=== PATIENT | female | born 1935 | race Caucasian/White ===

== ENCOUNTER 2016-11-20 14:42 | Inpatient (IN) ==
[2016-11-20] MEDS ORDERED: 0.9 % SODIUM CHLORIDE 1,000 ML IV ONE ×2 (15:00→15:02)
--- NOTE | 2016-11-20 15:09 | Emergency Department Note ---
Weakness HPI - General Chief complaint: Weakness Stated complaint: vomiting, fast heart rate Time Seen by Provider: 11/20/16 15:01 Source: patient, family Mode of arrival: ambulatory Limitations: no limitations - History of Present Illness HPI Narrative: Patient presents with significant other. Malaise, fever with chills, chest congestion with cough. Present now about 1 week. Patient feels like she is worsening. Mild confusion, no focal deficits. Cough is nonproductive. Patient unclear about history of A. fib; does report multiple cardiac stents. Multiple sick contacts. Patient also reports ongoing grief related to [id number] who 1 week ago. - Related Data Home Medications Medication Instructions Recorded Confirmed Apixaban [Eliquis] 5 mg PO BID 08/02/16 11/20/16 Lisinopril [Zestril] 40 mg PO DAILY 08/02/16 11/20/16 Omeprazole 20 mg PO DAILY 08/02/16 11/20/16 ALPRAZolam [Xanax] 1 mg PO TID 11/20/16 11/20/16 Levothyroxine [Synthroid] 112 mcg PO DAILY 11/20/16 11/20/16 amLODIPine [Norvasc] 10 mg PO DAILY 11/20/16 11/20/16 Previous Rx's Medication Instructions Recorded HYDROcodone/APAP 5/325MG [Delta 1 tab PO Q4HP PRN #14 tab 08/02/16 5/325Mg] Allergies Allergy/AdvReac Type Severity Reaction Status Date / Time ampicillin Allergy Mild ITCHING Verified 10/05/16 08:47 Cephalosporins Allergy Unknown Itching Verified 10/05/16 08:47 Review of Systems All systems ED: reviewed and negative except as stated. Constitutional: Reports: fever, chills, weakness Eyes: Denies: eye discharge, vision change ENT ED: Denies: ear pain, throat pain Cardiovascular: Reports: dyspnea on exertion. Denies: chest pain Respiratory: Reports: cough, dyspnea Past Medical History - Past Medical History Attestation: Yes: The following information was validated with the patient. Medical history: Reports: atrial fibrillation, GERD, hyperlipidemia, hypertension Surgical history ED: Reports: cholecystectomy, hysterectomy Family history: Reports: non-contributory - Social History smoking status: Never smoker Physical Exam - General Limitations: no limitations - Head Head exam: atraumatic - Eye Eye exam: Present: normal appearance. Absent: scleral icterus - ENT ENT exam: normal exam, mucous membranes moist - Neck Neck exam: Present: normal inspection. Absent: lymphadenopathy - Chest Chest inspection: Present: normal inspection, symmetric chest wall rise - Respiratory Respiratory exam: Present: normal lung sounds bilaterally. Absent: respiratory distress, wheezes - Cardiovascular Cardiovascular exam: Present: tachycardia, irregular rhythm - Abdominal Exam Abdominal exam: Present: soft. Absent: distention - Extremities Exam Extremities exam: Present: other (3+ edema appears chronic) - Back Exam Back exam: Present: normal inspection - Neurological Exam Neurological exam: Present: alert, oriented X3 - Psychiatric Psychiatric exam: Present: normal affect, flat affect - Skin Skin exam: Present: warm, dry. Absent: rash, cyanosis, diaphoresis, pallor Course - Reevaluation(s) Reevaluation #1: Patient feeling stronger, less confused but still very very weak. Unable to sit up without assist. Time: 16:45 Vital Signs Temperature 101.5 F H 11/20/16 14:46 Pulse Rate 123 H 11/20/16 14:46 Respiratory Rate 20 11/20/16 14:46 Blood Pressure 174/75 11/20/16 14:46 Pulse Oximetry (%) 93 11/20/16 14:46 Temperature 99.8 F H 11/20/16 16:16 Pulse Rate 123 H 11/20/16 14:46 Respiratory Rate 20 11/20/16 14:46 Blood Pressure 174/75 11/20/16 14:46 Pulse Oximetry (%) 93 11/20/16 14:46 Weakness - Lab Data Result diagrams: 11/20/16 15:02 11/20/16 15:02 Lab Results 11/20/16 11/20/16 11/20/16 Range/Units 15:02 15:02 15:02 WBC 10.4 (4.5-11.0) K/mcL RBC 4.68 (4.00-5.20) M/mcL Hgb 13.7 (12.0-15.0) g/dL Hct 41.8 (36.0-48.0) % MCV 89.5 (80.0-100.0) fL MCH 29.2 (26.0-34.0) pg MCHC 32.7 (31.0-36.0) g/dL RDW 16.9 H (11.5-14.5) % Plt Count 253 (140-440) K/mcL MPV 7.8 (7.4-10.4) fL Gran % 87.1 H (38.0-78.0) % Lymph % (Auto) 6.9 L (15.5-49.0) % [place] % (Auto) 4.9 (1.0-9.0) % Eos % (Auto) 0.9 (0.0-7.0) % Baso % (Auto) 0.2 (0.0-2.0) % Gran # 9.1 H (1.8-8.0) K/mcL Lymph # 0.7 L (1.5-4.8) K/mcL [place] # 0.5 (0.1-0.9) K/mcL Eos # 0.1 (0.0-0.7) K/mcL Baso # 0 (0.0-0.3) K/mcL ABG Methemoglobin (0.4-1.5) % VBG pH (7.32-7.42) U VBG pCO2 (41.0-51.0) mmHg VBG pO2 (25-40) mmHg VBG HCO3 (24.0-28.0) mmol/L VBG Total CO2 (25.0-29.0) mmol/L VBG O2 Saturation (40.0-70.0) % VBG Base Excess (-2.0-2.0) VBG Lactic Acid 2.6 H (0.5-2.2) mmol/L Carboxyhemoglobin (0.0-1.5) % THgb Total Hemoglobin (12.0-15.0) gm/dL O2 Delivery Level Sodium 133 (133-145) mmol/L Potassium 3.8 (3.3-5.1) mmol/L Chloride 92 L (96-108) mmol/L Carbon Dioxide 21 L (22-30) mmol/L Anion Gap 20.0 H (8-16) BUN 13 (8-23) mg/dl Creatinine 0.9 (0.6-1.1) mg/dl GFR Calculation 60 Glucose 150 H (70-105) mg/dL Calcium 9.1 (8.6-10.4) mg/dl Total Bilirubin 1.1 H (0.0-1.0) mg/dL AST 28 (0-37) U/l ALT 29 (0-40) U/l Alkaline Phosphatase 134 H (39-117) U/L Troponin T (0-0.03) ng/ml Total Protein 7.5 (5.9-8.4) gm/dL Albumin 4.1 (3.2-5.2) gm/dL Globulin 3.4 (2.2-3.7) gm/dL Albumin/Globulin Ratio 1.2 (1.0-2.3) Urine Color Urine Appearance Urine pH (5.0-9.0) Ur Specific [place] (1.000-1.035) Urine Protein (NEG) mg/dL Urine Glucose (UA) (NEG) mg/dL Urine Ketones (NEG) mg/dL Urine Occult Blood (<0.03) mg/dL Urine Nitrate (NEG) Urine Bilirubin (NEG) mg/dL Urine Urobilinogen (NEG) mg/dL Ur Leukocyte Esterase (NEG) /uL Urine RBC (0-1) /hpf Urine WBC (0-4) /hpf Ur Squamous Epith Cells (0-4) /hpf Urine Bacteria (0) /hpf Urine Mucus (0) /hpf Ur Culture Indicated? 11/20/16 11/20/16 11/20/16 Range/Units 15:02 15:02 15:41 WBC (4.5-11.0) K/mcL RBC (4.00-5.20) M/mcL Hgb (12.0-15.0) g/dL Hct (36.0-48.0) % MCV (80.0-100.0) fL MCH (26.0-34.0) pg MCHC (31.0-36.0) g/dL RDW (11.5-14.5) % Plt Count (140-440) K/mcL MPV (7.4-10.4) fL Gran % (38.0-78.0) % Lymph % (Auto) (15.5-49.0) % [place] % (Auto) (1.0-9.0) % Eos % (Auto) (0.0-7.0) % Baso % (Auto) (0.0-2.0) % Gran # (1.8-8.0) K/mcL Lymph # (1.5-4.8) K/mcL [place] # (0.1-0.9) K/mcL Eos # (0.0-0.7) K/mcL Baso # (0.0-0.3) K/mcL ABG Methemoglobin 0.3 L (0.4-1.5) % VBG pH 7.43 H (7.32-7.42) U VBG pCO2 37.0 L (41.0-51.0) mmHg VBG pO2 69 H (25-40) mmHg VBG HCO3 24.1 (24.0-28.0) mmol/L VBG Total CO2 25.2 (25.0-29.0) mmol/L VBG O2 Saturation 91.6 H (40.0-70.0) % VBG Base Excess 0.1 (-2.0-2.0) VBG Lactic Acid (0.5-2.2) mmol/L Carboxyhemoglobin 3.3 H (0.0-1.5) % THgb Total Hemoglobin 13.7 (12.0-15.0) gm/dL O2 Delivery Level Not Reportable Sodium (133-145) mmol/L Potassium (3.3-5.1) mmol/L Chloride (96-108) mmol/L Carbon Dioxide (22-30) mmol/L Anion Gap (8-16) BUN (8-23) mg/dl Creatinine (0.6-1.1) mg/dl GFR Calculation Glucose (70-105) mg/dL Calcium (8.6-10.4) mg/dl Total Bilirubin (0.0-1.0) mg/dL AST (0-37) U/l ALT (0-40) U/l Alkaline Phosphatase (39-117) U/L Troponin T < 0.01 (0-0.03) ng/ml Total Protein (5.9-8.4) gm/dL Albumin (3.2-5.2) gm/dL Globulin (2.2-3.7) gm/dL Albumin/Globulin Ratio (1.0-2.3) Urine Color Straw Urine Appearance Clear Urine pH 7.0 (5.0-9.0) Ur Specific [place] 1.008 (1.000-1.035) Urine Protein Neg (NEG) mg/dL Urine Glucose (UA) Negative (NEG) mg/dL Urine Ketones 5/tr A (NEG) mg/dL Urine Occult Blood 0.03 A (<0.03) mg/dL Urine Nitrate Neg (NEG) Urine Bilirubin Neg (NEG) mg/dL Urine Urobilinogen Neg (NEG) mg/dL Ur Leukocyte Esterase 25 A (NEG) /uL Urine RBC 4 H (0-1) /hpf Urine WBC 17 H (0-4) /hpf Ur Squamous Epith Cells 1 (0-4) /hpf Urine Bacteria Few A (0) /hpf Urine Mucus Few (0) /hpf Ur Culture Indicated? Yes - Radiology Data Radiology results reviewed: Yes I reviewed the patient's radiology results. no acute finding on chest x-ray,enlarged cardiac silhouette - EKG Data EKG attestation: Yes I reviewed and interpreted this EKG. EKG results narrative: EKG with A. fib, rate 122; lateral ST depression, no corresponding elevation Disposition Clinical Impression: Generalized weakness, Lactic acidosis UTI (urinary tract infection) Qualifiers: Urinary tract infection type: acute cystitis Hematuria presence: with hematuria Qualified Code(s): N30.01 - Acute cystitis with hematuria Summary: patient full code, wanting aggressive measures discussed with Dr. Forte,willing for admission, recommending ICU monitoring Disposition: Home, Self-Care Condition: Fair Referrals: Deanne Chris MD [Primary Care Provider] -
[2016-11-20 15:26] LABS: ABG Methemoglobin 0.3 % (0.4-1.5); VBG Base Excess 0.1 (-2.0-2.0); VBG HCO3 24.1 mmol/L (24.0-28.0); VBG Oxygen Saturation 91.6 % (40.0-70.0); VBG PH 7.43 U (7.32-7.42); VBG PO2 69 mmHg (25-40); VBG Total CO2 25.2 mmol/L (25.0-29.0)
[2016-11-20 15:31] LABS: Basophils # (Auto) 0 K/mcL (0.0-0.3); Basophils % (Auto) 0.2 % (0.0-2.0); Eosinophils # (Auto) 0.1 K/mcL (0.0-0.7); Eosinophils % (Auto) 0.9 % (0.0-7.0); Granulocytes % (Auto) 87.1 % (38.0-78.0); Lymphocytes # (Auto) 0.7 K/mcL (1.5-4.8); Lymphocytes % (Auto) 6.9 % (15.5-49.0); Mean Cell Volume 89.5 fL (80.0-100.0); Mean Corpuscular HGB Conc 32.7 g/dL (31.0-36.0); Mean Corpuscular Hemoglobin 29.2 pg (26.0-34.0); Monocytes # (Auto) 0.5 K/mcL (0.1-0.9); Monocytes % (Auto) 4.9 % (1.0-9.0); Platelet Count 253 K/mcL (140-440); RBC 4.68 M/mcL (4.00-5.20); Red Cell Distribution Width 16.9 % (11.5-14.5)
[2016-11-20 15:58] LABS: ALT/SGPT 29 U/l (0-40); Albumin 4.1 gm/dL (3.2-5.2); Albumin/Globulin Ratio 1.2 (1.0-2.3); Alkaline Phosphatase 134 U/L (39-117); Blood Urea Nitrogen 13 mg/dl (8-23)
[2016-11-20] MEDS ORDERED: LEVOFLOXACIN 500 MG/100 ML BAG IV ONE (15:58)
--- NOTE | 2016-11-20 16:08 | XRay Report ---
HISTORY: Reason for Exam:cough, fever, weakness FINDINGS: The lungs are clear and well expanded. There is no pleural effusion. The heart size and pulmonary vasculature are normal. There is a stent in the left anterior descending coronary artery. The heart is slightly larger today than it was in 2007. There is a right shoulder prosthesis. 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 IMPRESSION: No acute abnormality Interpreted and Authenticated by: Silvio Cabrera 11/20/16
[2016-11-20 16:17] LABS: Appearance,Urine CLEAR; Bacteria,Urine FEW /hpf (0); Bilirubin,Urine NEG (NEG); Color,Urine STRAW; Glucose,Urine (UA) NEGATIVE (NEG); Leukocyte Esterase,Urine 25 /uL (NEG); Mucus,Urine FEW /hpf (0); Nitrate,Urine NEG (NEG); Protein,Urine NEG (NEG); Specific Gravity,Urine 1.008 (1.000-1.035); Urine Blood 0.03 mg/dL (<0.03); Urine RBC 4 /hpf (0-1); Urine Squamous Epithelial Cell 1 /hpf (0-4); Urine WBC 17 /hpf (0-4); Urobilinogen,Urine NEG (NEG)
[2016-11-20] MEDS ORDERED: 0.9 % SODIUM CHLORIDE 1,000 ML IV SCH (18:00)
[2016-11-20] MEDS ORDERED: ACETAMINOPHEN 1,000 MG/100 ML BOTTLE IV PRN (18:00)
[2016-11-20] MEDS ORDERED: ACETAMINOPHEN 325 MG TABLET PO PRN (18:00)
[2016-11-20] MEDS ORDERED: HYDROcodone/APAP 5/325MG TABLET PO PRN (18:00)
[2016-11-20] MEDS ORDERED: ONDANSETRON 4 MG/2 ML VIAL IV PRN (18:00)
[2016-11-20] MEDS ORDERED: VASOPRESSIN 20 UNIT in DEXTROSE 5% IN WATER 99 ML IV PRN (18:00)
[2016-11-20] MEDS: APIXABAN 5 MG TABLET PO SCH (20:10)
[2016-11-20] MEDS: ALPRAZolam 0.5 MG TABLET PO SCH (20:10)
[2016-11-20] MEDS: AZTREONAM 1 GM in DEXTROSE 5% IN WATER 50 ML IV SCH (20:11)
[2016-11-20] MEDS: DOCUSATE SODIUM 100 MG CAPSULE PO SCH (20:11)
[2016-11-20] MEDS: METOPROLOL TARTRATE 5 MG/5 ML VIAL IV SCH (20:11)
[2016-11-20] MEDS: 0.9 % SODIUM CHLORIDE 10 ML SYRINGE IV SCH (20:12)
[2016-11-20] MEDS ORDERED: HEPARIN 5,000 UNIT/ML VIAL SQ SCH (21:00)
[2016-11-20] MEDS ORDERED: SENNOSIDES/DOCUSATE SODIUM 1 TAB TABLET PO SCH (21:00)
[2016-11-20] MEDS ORDERED: traZODone HCL 50 MG TABLET PO PRN (21:00)
[2016-11-21] MEDS: AZTREONAM 1 GM in DEXTROSE 5% IN WATER 50 ML IV SCH ×4 (00:45→21:13)
[2016-11-21 04:57] LABS: ALT/SGPT 23 U/l (0-40); Albumin 3.4 gm/dL (3.2-5.2); Albumin/Globulin Ratio 1.1 (1.0-2.3); Alkaline Phosphatase 120 U/L (39-117); Bilirubin,Direct 0.3 mg/dL (0.0-0.3); Blood Urea Nitrogen 12 mg/dl (8-23); Gamma Glutamyl Transpeptidase 92 U/L (5-36); Magnesium 1.8 mg/dL (1.6-2.5); Uric Acid 5.3 mg/dL (2.5-8.0)
[2016-11-21] MEDS: 0.9 % SODIUM CHLORIDE 10 ML SYRINGE IV SCH ×3 (04:59→21:18)
[2016-11-21 05:01] LABS: Mean Cell Volume 86.5 fL (80.0-100.0); Mean Corpuscular HGB Conc 34.8 g/dL (31.0-36.0); Mean Corpuscular Hemoglobin 30.1 pg (26.0-34.0); Platelet Count 177 K/mcL (140-440); RBC 4.65 M/mcL (4.00-5.20); Red Cell Distribution Width 16.4 % (11.5-14.5)
[2016-11-21 05:55] LABS: Anisocytosis 1+ (NONE SEEN); Band Neutrophils % 5 % (0-10); Lymphocytes % 20 % (15-49); Monocytes % (Manual) 14 % (1-9); Platelet Estimate NORMAL (NORMAL); RBC Morphology ABNORM (NORMAL); Segmented Neutrophils % 61 % (38-78)
[2016-11-21] MEDS ORDERED: LEVOTHYROXINE SODIUM 112 MCG TABLET PO SCH (07:30)
[2016-11-21] MEDS ORDERED: PANTOPRAZOLE 40 MG VIAL IV SCH (07:30)
[2016-11-21] MEDS: DOCUSATE SODIUM 100 MG CAPSULE PO SCH ×2 (08:45→21:13)
[2016-11-21] MEDS: APIXABAN 5 MG TABLET PO SCH ×2 (08:46→21:13)
[2016-11-21] MEDS: ALPRAZolam 0.5 MG TABLET PO SCH ×4 (08:49→21:19)
[2016-11-21] MEDS ORDERED: amLODIPine 10 MG TABLET PO SCH (09:00)
[2016-11-21] MEDS ORDERED: LISINOPRIL 20 MG TABLET PO SCH (09:00)
--- NOTE | 2016-11-21 09:03 | History and Physical Report ---
DATE OF ADMISSION: 11/20/2016 PRIMARY CARE PHYSICIAN: Deanne Chris MD REASON FOR ADMISSION: Weakness, fever, malaise along with increasing urinary frequency. HISTORY OF CHIEF COMPLAINTS: The patient is an 81-year-old [place], [place]. She was in her baseline state of health until roughly 48 hours prior to presentation. Patient has been getting increasingly incontinent with increasing frequency and weakness along with fevers, chills, malaise. Over the ensuing 24 hours the patient noted significant difficulty performing ADLs and had a decline in functional status. She also had associated cough. She endorses to loss of appetite. She denies diarrhea, dysuria, bloody stool, joint pain, rash, glandular swelling. With increasing weakness and concerns, the patient came to [facility] ER where initial workup was significant for pyuria along with bacteremia. The patient received first dose of antibiotics. Hospitalist Service was consulted. At the time of examination, the patient is alert, oriented and able to provide most of the history. She denies headache, photophobia, neck stiffness. She further denies nausea, vomiting, chest palpitations, weight loss or glandular swelling. REVIEW OF SYSTEMS: Ten-point review of system was performed and negative except the ones discussed above. PAST MEDICAL HISTORY: 1. Hypertension. 2. Anxiety disorder. 3. Hypothyroidism. 4. Anticoagulation. 5. GERD. 6. Degenerative joint disease. CURRENT MEDICATIONS: 1. Amlodipine 10 mg. 2. Lisinopril 40 mg. 3. Alprazolam 1 mg t.i.d. 4. Levothyroxine 112 mcg. 5. Apixaban 5 mg b.i.d. 6. Omeprazole 20 mg. 7. Hydrocodone/acetaminophen 1 tab q.4h. SOCIAL HISTORY: No history of smoking or alcoholism, lives with her son, sees primary care physician, Deanne Chris MD. No substance abuse history. CODE STATUS: FULL CODE. FAMILY HISTORY: Significant for breast cancer in daughter, diabetes in son. PHYSICAL EXAMINATION: GENERAL: The patient is nondistressed. BMI 31. Height 5 feet 4 inches. VITAL SIGNS: Blood pressure 155/90, respiratory rate 20, temperature 101.5, pulse 112, sats 96% on room air. HEENT: Pupils symmetric. Oral cavity is dry. No ear or nose discharge. Head is normocephalic and atraumatic. NECK: No lymphadenopathy. CHEST: S1, S2 regular rhythm, tachycardia. ESM grade 1. Diminished breath sounds at bases. ABDOMEN: Soft and nontender except for mild discomfort with suprapubic area. No flank tenderness. LOWER EXTREMITIES: No cyanosis or clubbing. No joint swelling. SKIN: No suspicious lesions. PSYCH: Alert and cooperative, fatigued but no anxiety or agitation. NEURO: Nonfocal. LABS AND IMAGING: White count 10.4, hemoglobin 13.7, neutrophils 87%, pH 7.43. Lactic acid 2.6, sodium 133, potassium 3.8, creatinine 0.9, BUN 13, bilirubin 1.1. LFTs unremarkable. Procalcitonin 0.94. UA significant for 17 WBCs and bacteria, gram negative bacilli on blood culture. Serous cultures pending. Renal ultrasound pending. ASSESSMENT AND PLAN: An 79-year-old admitted with severe sepsis and gram-positive and gram negative bacteremia with complicated UTI. 1. Severe sepsis from gram-negative bacteremia and UTI. Continue management per guidelines, surveillance cultures, broad antibiotic coverage-in light of penicillin and cephalosporins allergy we will use aztreonam/Levaquin and deescalate based on culture results. 2. Complicated urinary tract infection. Rule out obstructive uropathy. Evaluate with renal ultrasound. Continue antibiotic coverage. 3. Bacteremia. Continue surveillance cultures, at minimum 10 to 14 days of antibiotics. 4. Prior medical issues, including: a. History of anxiety disorder. Continue alprazolam. b. Anticoagulation will be continued on apixaban. c. Hypothyroidism. Continue levothyroxine. d. Gastroesophageal reflux disease. Continue PPI. e. Hypertension. At this time, we will hold medication until sepsis improves and systolics over 140. PLAN FOR TODAY: 1. Admit as inpatient telemetry in light of severe sepsis and bacteremia. 2. Renal ultrasound. 3. Antibiotic coverage. 4. Preexisting medical condition management as above. [email or web address] Job ID: [id number] Doc ID: [id number] Henrry Chris MD [facility]
[2016-11-21] MEDS ORDERED: traZODone HCL 50 MG TABLET PO PRN (09:25)
[2016-11-21] MEDS ORDERED: ACETAMINOPHEN 1,000 MG/100 ML BOTTLE IV PRN (09:25)
[2016-11-21] MEDS ORDERED: HYDROcodone/APAP 5/325MG TABLET PO PRN (09:25)
[2016-11-21] MEDS ORDERED: ACETAMINOPHEN 325 MG TABLET PO PRN (09:25)
[2016-11-21] MEDS ORDERED: ONDANSETRON 4 MG/2 ML VIAL IV PRN (09:25)
--- NOTE | 2016-11-21 09:28 | Internal Med Progress Note ---
Medical - PN: Subj Patient information: Note initiated : 11/21/16 at 9:24 am Service Date, if different from initiated Date: [] Patient: Natalee Rooney 81 y/o F admitted on 11/20/16 for Vomiting, Fast Heart Rate. Chief Complaint: [] Interval history: 11/20- patient admitted with severe sepsis/complicated UTI and bacteremia. Admitted to ICU. Elevated lactate. On crystalloids antibiotics and close hemodynamic monitoring. Renal ultrasound pending 11/21-atient doing well. Stable hemodynamics. Afebrile. Awaiting ultrasound. Surveillance cultures pending. Transfer to medical floor. Continue antibiotic coverage and target minimum 10-14 days after last negative blood culture based on sensitivities. - Constitutional Vitals: Vital Signs Temp Pulse Resp BP Pulse Ox 99.1 F 64 18 138/68 97 11/21/16 08:00 11/21/16 09:00 11/21/16 09:00 11/21/16 09:00 11/21/16 09:00 Period Temp Pulse Resp BP Sys/Edwards Pulse Ox Last 24 Hr 97.1 F-99.4 F 64-112 15-23 110-176/65-108 94-98 Intake and Output 11/20/16 11/21/16 11/21/16 21:59 05:59 13:59 Intake Total 410 / 1510 100 / 100 780 / 780 Output Total 350 / 350 450 / 450 Balance 60 / 1160 -350 / -350 780 / 780 Weight 183 lb 11.2 oz Intake & Output: Intake & Output 11/20/16 11/21/16 11/21/16 21:59 05:59 13:59 Intake Total 410 / 1510 100 / 100 780 / 780 Output Total 350 / 350 450 / 450 Balance 60 / 1160 -350 / -350 780 / 780 Weight 183 lb 11.2 oz Intake: IV 50 / 50 100 / 100 Dextrose 5% in Water 50 50 / 50 100 / 100 ml @ 100 mls/hr IV Q8 AARON with Azactam 1 gm Rx#: [id number] Oral 360 / 360 420 / 420 Tube Feeding 360 / 360 Output: Urine Catheter Amount 200 / 200 450 / 450 Void Amount 150 / 150 Other: Meal Breakfast Percent of Meal Consumed 100% General appearance: cooperative, no acute distress - Head Additional comments: alert oriented No anxiety no lymphedema or pallor nonlabored breathing Nondistended abdomen Medical - PN: Obj Da - Labs CBC & Chem 7: 11/21/16 04:05 11/21/16 04:05 Labs: Abnormal Lab Results 11/21/16 11/21/16 04:05 04:05 RDW 16.4 H Monocytes % (Manual) 14 H WBC Morphology Abnorm A Vacuolated Monocytes 1+ A RBC Morphology Abnorm A Anisocytosis 1+ A Calcium 8.5 L GGT 92 H Alkaline Phosphatase 120 H Meds: Medications Acetaminophen (Tylenol) 650 mg PO Q4-6HP PRN PRN Reason: PAIN/FEVER > 101 Acetaminophen/Hydrocodone Bitart ([place] 5/325mg) 1 tab PO Q4HP PRN PRN Reason: Pain Alprazolam (Xanax) 1 mg PO TID [facility] Last Admin: 11/21/16 08:49 Dose: 1 mg Amlodipine Besylate (Norvasc) 10 mg PO DAILY [facility] Last Admin: 11/21/16 08:46 Dose: 10 mg Docusate Sodium (Colace) 100 mg PO BID [facility] Last Admin: 11/21/16 08:45 Dose: 100 mg Aztreonam 1 gm/ Dextrose 50 mls @ 100 mls/hr IV Q8 [facility] Last Infusion: 11/21/16 05:30 Dose: Infused Sodium Chloride (Sodium Chloride 0.9%) 1,000 mls @ 50 mls/hr IV .Q20H [facility] Stop: 11/23/16 05:59 Last Admin: 11/20/16 20:12 Dose: 50 mls/hr Acetaminophen (Ofirmev) 1,000 mg in 100 mls @ 200 mls/hr IV Q6HP PRN PRN Reason: PAIN/FEVER > 101 Vasopressin 20 unit/ Dextrose 100 mls @ 12 mls/hr IV Q8HP PRN; Protocol; 0.04 UNIT/MIN PRN Reason: TO KEEP SBP < 180,DBP < 110 Levofloxacin (Levaquin) 750 mg in 150 mls @ 100 mls/hr IV Q48H [facility] Levothyroxine Sodium (Synthroid) 112 mcg PO QAMAC [facility] Last Admin: 11/21/16 07:11 Dose: 112 mcg Lisinopril (Zestril) 40 mg PO DAILY [facility] Last Admin: 11/21/16 08:46 Dose: 40 mg Ondansetron HCl (Zofran) 4 mg IV Q4-6HP PRN PRN Reason: Nausea And Vomiting Pantoprazole Sodium (Protonix) 40 mg IV QAMAC [facility] Last Admin: 11/21/16 07:11 Dose: 40 mg Pneumococcal Polyvalent Vaccine (Pneumovax 23) 0.5 ml IM .ONCE ONE Stop: 11/22/16 10:01 Senna/Docusate Sodium (Senna Plus Tablet) 1 tab PO HS [facility] Last Admin: 11/20/16 20:09 Dose: 1 tab Sodium Chloride (Saline Flush) 10 ml IV Q8 [facility] Last Admin: 11/21/16 04:59 Dose: Not Given Trazodone HCl (Desyrel) 50 mg PO HSP PRN PRN Reason: Insomnia Medical - PN: A/P - Time Spent With Patient Total time spent is greater than 50% in coordination of care (as documented) at patient's floor/unit and/or counseling patient: 25 - 35 minutes (1) Severe sepsis with acute organ dysfunction due to Gram negative bacteria Status: Acute Assessment and plan: * Severe sepsis due to gram-negative bacteremia- await ID/sensitivities. Surveillance cultures pending. Continue antibiotics for 10-14 days. stable hemodynamics. Transfer to medical floor. * Complicated UTI with bacteremia-continue antibiotic coverage. Renal ultrasound to rule out pyelonephritis/obstructive uropathy * hypertension-estartamlodipine. Hold JUANJO inhibitor is untilsepsis resolved * anxiety disorder on alprazolam * hypothyroidism on thyroxine * GERD on PPI * anticoagulation on apixiban * Full CODE STATUS Plan * Continue antibiotic coverage/surveillance cultures * Pre-existing medical condition management as above * transfer to medical floor Current Visit: Yes Medical - PN: Qual - VTE Deep Vein Thrombosis/Pulmonary Embolism Present on Admission: No
--- NOTE | 2016-11-21 09:47 | Ultrasound Report ---
History: Obstructive uropathy and bacteremia Findings: The right kidney is 4.8 x 5.3 x 10.7 cm left measures 4.7 x 5.1 x 11.6 cm. The cortex is normal in thickness and echogenicity bilaterally. There is no mass, cyst or hydronephrosis in either kidney. In the lower pole of left kidney and there is an echogenic structure measuring 3 x 7 x 7 mm. It shadows and may be a small nonobstructing stone. Urinary bladder is decompressed by Fox catheter. Therefore we are unable to visualize flow of urine through the ureters into the bladder. Impression: No evidence of hydronephrosis or inflammation in either kidney Small nonobstructing stone in the lower pole of the left kidney Interpreted and Authenticated by: Silvio Cabrera 11/21/16
[2016-11-21] MEDS ORDERED: LEVOFLOXACIN 750 MG/150 ML BAG IV SCH (10:00)
[2016-11-21] MEDS: 0.9 % SODIUM CHLORIDE 1,000 ML IV SCH (10:02)
[2016-11-21] MEDS: LEVOFLOXACIN 750 MG/150 ML BAG IV SCH (10:04)
[2016-11-21] MEDS: SENNOSIDES/DOCUSATE SODIUM 1 TAB TABLET PO SCH (21:12)
[2016-11-22] MEDS: 0.9 % SODIUM CHLORIDE 1,000 ML IV SCH ×2 (04:42→19:29)
[2016-11-22] MEDS: AZTREONAM 1 GM in DEXTROSE 5% IN WATER 50 ML IV SCH ×3 (05:17→21:27)
[2016-11-22] MEDS: 0.9 % SODIUM CHLORIDE 10 ML SYRINGE IV SCH ×3 (05:17→22:05)
[2016-11-22 05:50] LABS: Mean Cell Volume 90.2 fL (80.0-100.0); Mean Corpuscular HGB Conc 33.3 g/dL (31.0-36.0); Platelet Count 201 K/mcL (140-440); RBC 3.99 M/mcL (4.00-5.20); Red Cell Distribution Width 16.7 % (11.5-14.5)
[2016-11-22 06:32] LABS: ALT/SGPT 18 U/l (0-40); Albumin 3.1 gm/dL (3.2-5.2); Albumin/Globulin Ratio 1.2 (1.0-2.3); Alkaline Phosphatase 101 U/L (39-117); Bilirubin,Direct < 0.2 mg/dL (0.0-0.3); Blood Urea Nitrogen 15 mg/dl (8-23); Gamma Glutamyl Transpeptidase 83 U/L (5-36); Magnesium 1.8 mg/dL (1.6-2.5); Phosphorous 2.9 mg/dL (2.7-4.5); Uric Acid 5.2 mg/dL (2.5-8.0)
[2016-11-22] MEDS: PANTOPRAZOLE 40 MG VIAL IV SCH (07:16)
[2016-11-22] MEDS: LEVOTHYROXINE SODIUM 112 MCG TABLET PO SCH (07:17)
[2016-11-22] MEDS: DOCUSATE SODIUM 100 MG CAPSULE PO SCH ×2 (08:49→21:26)
[2016-11-22] MEDS: LISINOPRIL 20 MG TABLET PO SCH (08:50)
[2016-11-22] MEDS: APIXABAN 5 MG TABLET PO SCH ×2 (08:50→21:25)
[2016-11-22] MEDS: amLODIPine 10 MG TABLET PO SCH (08:50)
[2016-11-22] MEDS: ALPRAZolam 0.5 MG TABLET PO SCH ×3 (08:55→21:27)
[2016-11-22 09:08] LABS: Anisocytosis 1+ (NONE SEEN); Band Neutrophils % 4 % (0-10); Eosinophils % (Manual) 8 % (0-7); Lymphocytes % 22 % (15-49); Monocytes % (Manual) 8 % (1-9); Platelet Estimate NORMAL (NORMAL); RBC Morphology ABNORM (NORMAL); Segmented Neutrophils % 58 % (38-78)
[2016-11-22] MEDS ORDERED: PNEUMOCOCCAL 23-VAL P-SAC VAC 0.5 ML VIAL IM ONE (10:00)
[2016-11-22] MEDS ORDERED: FLU VACC QS2016-17 36MOS UP/PF 60 MCG/0.5 ML SYRINGE IM ONE (10:00)
--- NOTE | 2016-11-22 10:09 | Internal Med Progress Note ---
Medical - PN: Subj Patient information: Note initiated : 11/22/16 at 10:01 am Service Date, if different from initiated Date: [] Patient: Natalee Rooney 81 y/o F admitted on 11/20/16 for Vomiting, Fast HR/Severe Sepsis, Complicated UTI. Chief Complaint: [] Interval history: 11/20- patient admitted with severe sepsis/complicated UTI and bacteremia. Admitted to ICU. Elevated lactate. On crystalloids antibiotics and close hemodynamic monitoring. Renal ultrasound pending 11/21-atient doing well. Stable hemodynamics. Afebrile. Awaiting ultrasound. Surveillance cultures pending. Transfer to medical floor. Continue antibiotic coverage and target minimum 10-14 days after last negative blood culture based on sensitivities. 11/22- gram-negative bacteremia to 2 cultures positive. Surveillance cultures pending. Urine culture GNR. Await ID/sensitivities. Continue aztreonam/ Levaquin. Clinically improving. Target 14 days antibiotics from last negative culture. renal ultrasound unremarkable. Stable hemodynamics. No overnight fever,chills abdominal pain, diarrhea or concerns per staff. discussed treatment plan and 14 day antibiotic with patient. Continue physical therapy - Constitutional Vitals: Vital Signs Temp Pulse Resp BP Pulse Ox 97.4 F L 77 16 164/81 97 11/22/16 07:59 11/22/16 07:59 11/22/16 07:59 11/22/16 07:59 11/22/16 07:59 Period Temp Pulse Resp BP Sys/Edwards Pulse Ox Last 24 Hr 97.2 F-98.4 F 63-78 16-20 112-164/58-82 95-99 Intake and Output 11/21/16 11/22/16 11/22/16 21:59 05:59 13:59 Intake Total 92 / 92 100 / 100 Output Total 150 / 150 475 / 475 Balance -58 / -58 -375 / -375 Weight 186 lb 8 oz Intake & Output: Intake & Output 11/21/16 11/22/16 11/22/16 21:59 05:59 13:59 Intake Total 92 / 92 100 / 100 Output Total 150 / 150 475 / 475 Balance -58 / -58 -375 / -375 Weight 186 lb 8 oz Intake: IV 92 / 92 Dextrose 5% in Water 50 92 / 92 ml @ 100 mls/hr IV Q8 AARON with Azactam 1 gm Rx#: [id number] Oral 100 / 100 Output: Void Amount 150 / 150 475 / 475 Other: # Bowel Movements 0 General appearance: cooperative, no acute distress Exam: alert oriented nonlabored breathing Fatigued No lymphedema Medical - PN: Obj Da - Labs CBC & Chem 7: 11/22/16 04:05 11/22/16 04:05 Labs: Abnormal Lab Results 11/22/16 11/22/16 11/21/16 04:05 04:05 04:05 RBC 3.99 L RDW 16.7 H Monocytes % (Manual) Eosinophils % (Manual) 8 H WBC Morphology Vacuolated Monocytes RBC Morphology Abnorm A Anisocytosis 1+ A Calcium 8.5 L 8.5 L GGT 83 H 92 H Alkaline Phosphatase 120 H Total Protein 5.7 L Albumin 3.1 L 11/21/16 04:05 RBC RDW 16.4 H Monocytes % (Manual) 14 H Eosinophils % (Manual) WBC Morphology Abnorm A Vacuolated Monocytes 1+ A RBC Morphology Abnorm A Anisocytosis 1+ A Calcium GGT Alkaline Phosphatase Total Protein Albumin Meds: Medications Acetaminophen (Tylenol) 650 mg PO Q4-6HP PRN PRN Reason: PAIN/FEVER > 101 Acetaminophen/Hydrocodone Bitart ([place] 5/325mg) 1 tab PO Q4HP PRN PRN Reason: Pain Alprazolam (Xanax) 1 mg PO TID [facility] Last Admin: 11/22/16 08:55 Dose: Not Given Amlodipine Besylate (Norvasc) 10 mg PO DAILY [facility] Last Admin: 11/22/16 08:50 Dose: 10 mg Docusate Sodium (Colace) 100 mg PO BID [facility] Last Admin: 11/22/16 08:49 Dose: 100 mg Aztreonam 1 gm/ Dextrose 50 mls @ 100 mls/hr IV Q8 [facility] Last Admin: 11/22/16 05:17 Dose: 100 mls/hr Levofloxacin (Levaquin) 750 mg in 150 mls @ 100 mls/hr IV Q48H [facility] Last Infusion: 11/21/16 11:04 Dose: 0 mls/hr Sodium Chloride (Sodium Chloride 0.9%) 1,000 mls @ 50 mls/hr IV .Q20H [facility] Stop: 11/23/16 05:59 Last Admin: 11/22/16 04:42 Dose: Not Given Acetaminophen (Ofirmev) 1,000 mg in 100 mls @ 200 mls/hr IV Q6HP PRN PRN Reason: PAIN/FEVER > 101 Levothyroxine Sodium (Synthroid) 112 mcg PO QAMAC [facility] Last Admin: 11/22/16 07:17 Dose: 112 mcg Lisinopril (Zestril) 40 mg PO DAILY [facility] Last Admin: 11/22/16 08:50 Dose: 40 mg Ondansetron HCl (Zofran) 4 mg IV Q4-6HP PRN PRN Reason: Nausea And Vomiting Pantoprazole Sodium (Protonix) 40 mg IV QAMAC [facility] Last Admin: 11/22/16 07:16 Dose: 40 mg Senna/Docusate Sodium (Senna Plus Tablet) 1 tab PO HS [facility] Last Admin: 11/21/16 21:12 Dose: 1 tab Sodium Chloride (Saline Flush) 10 ml IV Q8 [facility] Last Admin: 11/22/16 05:17 Dose: Not Given Trazodone HCl (Desyrel) 50 mg PO HSP PRN PRN Reason: Insomnia Medical - PN: A/P - Time Spent With Patient Total time spent is greater than 50% in coordination of care (as documented) at patient's floor/unit and/or counseling patient: 25 - 35 minutes (1) Severe sepsis with acute organ dysfunction due to Gram negative bacteria Status: Acute Assessment and plan: * Gram-negative bacteremia- surveillance cultures pending. De-escalate antibiotics based on sensitivities * Severe sepsis due to gram-negative bacteremia- clinically improved. Stable hemodynamics. Possible discharge in 48 hours with additional 14 days antibiotics * Complicated GNR UTI -negative renal ultrasound. * hTN-continue amlodipine. restart JUANJO inhibitor * Anxiety disorder on alprazolam * hypothyroidism on thyroxine * GERD on PPI * anticoagulation on apixiban * Full CODE STATUS Plan * de-escalate ABX based on sensitivities * Restart JUANJO inhibitor * Pre-existing medical condition management as above * surveillance cultures Current Visit: Yes Medical - PN: Qual - VTE Deep Vein Thrombosis/Pulmonary Embolism Present on Admission: No
[2016-11-22] MEDS: SENNOSIDES/DOCUSATE SODIUM 1 TAB TABLET PO SCH (21:26)
[2016-11-23 05:22] LABS: Mean Cell Volume 89.7 fL (80.0-100.0); Mean Corpuscular HGB Conc 33.4 g/dL (31.0-36.0); Mean Corpuscular Hemoglobin 29.9 pg (26.0-34.0); Platelet Count 227 K/mcL (140-440); RBC 3.83 M/mcL (4.00-5.20); Red Cell Distribution Width 16.5 % (11.5-14.5)
[2016-11-23] MEDS: AZTREONAM 1 GM in DEXTROSE 5% IN WATER 50 ML IV SCH (05:56)
[2016-11-23] MEDS: 0.9 % SODIUM CHLORIDE 10 ML SYRINGE IV SCH ×3 (05:56→21:48)
[2016-11-23 06:00] LABS: ALT/SGPT 17 U/l (0-40); Albumin 3.1 gm/dL (3.2-5.2); Albumin/Globulin Ratio 1.1 (1.0-2.3); Alkaline Phosphatase 103 U/L (39-117); Bilirubin,Direct < 0.2 mg/dL (0.0-0.3); Blood Urea Nitrogen 12 mg/dl (8-23); Gamma Glutamyl Transpeptidase 88 U/L (5-36); Magnesium 1.7 mg/dL (1.6-2.5); Phosphorous 3.2 mg/dL (2.7-4.5); Uric Acid 4.7 mg/dL (2.5-8.0)
[2016-11-23] MEDS: PANTOPRAZOLE 40 MG VIAL IV SCH (08:24)
[2016-11-23] MEDS: LEVOTHYROXINE SODIUM 112 MCG TABLET PO SCH (08:24)
[2016-11-23 08:40] LABS: Anisocytosis 1+ (NONE SEEN); Eosinophils % (Manual) 7 % (0-7); Lymphocytes % 31 % (15-49); Monocytes % (Manual) 9 % (1-9); Myelocytes % 1 % (0-0); Platelet Estimate NORMAL (NORMAL); RBC Morphology ABNORM (NORMAL); Segmented Neutrophils % 51 % (38-78)
[2016-11-23] MEDS ORDERED: amLODIPine 10 MG TABLET PO SCH (09:00)
[2016-11-23] MEDS ORDERED: LISINOPRIL 20 MG TABLET PO SCH (09:00)
[2016-11-23] MEDS: LISINOPRIL 20 MG TABLET PO SCH (09:19)
[2016-11-23] MEDS: DOCUSATE SODIUM 100 MG CAPSULE PO SCH ×2 (09:19→21:40)
[2016-11-23] MEDS: APIXABAN 5 MG TABLET PO SCH ×2 (09:20→21:47)
[2016-11-23] MEDS: amLODIPine 10 MG TABLET PO SCH (09:21)
--- NOTE | 2016-11-23 10:28 | Internal Med Progress Note ---
Medical - PN: Subj Patient information: Note initiated : 11/23/16 at 10:26 am Service Date, if different from initiated Date: [] Patient: Natalee Rooney 81 y/o F admitted on 11/20/16 for Vomiting, Fast HR/Severe Sepsis, Complicated UTI. Chief Complaint: [] Interval history: 11/20- Patient admitted with severe sepsis/complicated UTI and bacteremia. Admitted to ICU. Elevated lactate. On crystalloids antibiotics and close hemodynamic monitoring. Renal ultrasound pending 11/21- Patient doing well. Stable hemodynamics. Afebrile. Awaiting ultrasound. Surveillance cultures pending. Transfer to medical floor. Continue antibiotic coverage and target minimum 10-14 days after last negative blood culture based on sensitivities. 11/22- Gram-negative bacteremia to 2 cultures positive. Surveillance cultures pending. Urine culture GNR. Await ID/sensitivities. Continue aztreonam/ Levaquin. Clinically improving. Target 14 days antibiotics from last negative culture. renal ultrasound unremarkable. Stable hemodynamics. No overnight fever,chills abdominal pain, diarrhea or concerns per staff. discussed treatment plan and 14 day antibiotic with patient. Continue physical therapy 11/23- Patient doing well. No overnight events. No concerns per staff. Cultures revealing Klebsiella/Escherichia coli . Pansensitive. De-escalate antibiotics. Start Rocephin. Anticipate discharge to SNF in 24 hours. No overnight fever chills nausea vomiting - Constitutional Vitals: Vital Signs Temp Pulse Resp BP Pulse Ox 98.7 F 72 16 170/81 96 11/23/16 07:45 11/23/16 07:45 11/23/16 07:45 11/23/16 07:45 11/23/16 07:45 Period Temp Pulse Resp BP Sys/Edwards Pulse Ox Last 24 Hr 97.3 F-98.7 F 70-79 16-16 150-176/76-90 94-98 Intake and Output 11/22/16 11/23/16 11/23/16 21:59 05:59 13:59 Intake Total 460 / 460 300 / 300 Output Total 550 / 550 401 / 401 Balance -90 / -90 -101 / -101 Weight 189 lb 8 oz Intake & Output: Intake & Output 11/22/16 11/23/16 11/23/16 21:59 05:59 13:59 Intake Total 460 / 460 300 / 300 Output Total 550 / 550 401 / 401 Balance -90 / -90 -101 / -101 Weight 189 lb 8 oz Intake: IV 100 / 100 Dextrose 5% in Water 50 100 / 100 ml @ 100 mls/hr IV Q8 AARON with Azactam 1 gm Rx#: [id number] Oral 360 / 360 300 / 300 Output: Void Amount 550 / 550 400 / 400 # of times incontinent of 1 / urine Other: Meal Dinner Percent of Meal Consumed 50% Feeding Ability Independent # Voids 1 General appearance: cooperative, no acute distress, obese Exam: alert oriented Feeling lethargic and fatigued nonlabored breathing Non tender/distended abdomen no anxiety Medical - PN: Obj Da - Labs CBC & Chem 7: 11/23/16 04:10 11/23/16 04:10 Labs: Abnormal Lab Results 11/23/16 11/23/16 11/22/16 04:10 04:10 04:05 WBC 4.0 L RBC 3.83 L Hgb 11.5 L Hct 34.4 L RDW 16.5 H Monocytes % (Manual) Eosinophils % (Manual) Myelocytes % 1 H WBC Morphology Vacuolated Monocytes RBC Morphology Abnorm A Anisocytosis 1+ A Calcium 8.3 L 8.5 L GGT 88 H 83 H Alkaline Phosphatase Total Protein 5.8 L 5.7 L Albumin 3.1 L 3.1 L 11/22/16 11/21/16 11/21/16 04:05 04:05 04:05 WBC RBC 3.99 L Hgb Hct RDW 16.7 H 16.4 H Monocytes % (Manual) 14 H Eosinophils % (Manual) 8 H Myelocytes % WBC Morphology Abnorm A Vacuolated Monocytes 1+ A RBC Morphology Abnorm A Abnorm A Anisocytosis 1+ A 1+ A Calcium 8.5 L GGT 92 H Alkaline Phosphatase 120 H Total Protein Albumin Meds: Medications Acetaminophen (Tylenol) 650 mg PO Q4-6HP PRN PRN Reason: PAIN/FEVER > 101 Acetaminophen/Hydrocodone Bitart ([place] 5/325mg) 1 tab PO Q4HP PRN PRN Reason: Pain Amlodipine Besylate (Norvasc) 10 mg PO DAILY [facility] Last Admin: 11/23/16 09:21 Dose: 10 mg Docusate Sodium (Colace) 100 mg PO BID [facility] Last Admin: 11/23/16 09:19 Dose: 100 mg Aztreonam 1 gm/ Dextrose 50 mls @ 100 mls/hr IV Q8 [facility] Last Admin: 11/23/16 05:56 Dose: 100 mls/hr Levofloxacin (Levaquin) 750 mg in 150 mls @ 100 mls/hr IV Q48H [facility] Last Infusion: 11/21/16 11:04 Dose: 0 mls/hr Acetaminophen (Ofirmev) 1,000 mg in 100 mls @ 200 mls/hr IV Q6HP PRN PRN Reason: PAIN/FEVER > 101 Ceftriaxone Sodium 2 gm/ (Dextrose) 50 mls @ 100 mls/hr IV Q24H [facility] Levothyroxine Sodium (Synthroid) 112 mcg PO QAMAC [facility] Last Admin: 11/23/16 08:24 Dose: 112 mcg Lisinopril (Zestril) 40 mg PO DAILY [facility] Last Admin: 11/23/16 09:19 Dose: 40 mg Ondansetron HCl (Zofran) 4 mg IV Q4-6HP PRN PRN Reason: Nausea And Vomiting Pantoprazole Sodium (Protonix) 40 mg IV QAMID [facility] Last Admin: 11/23/16 08:24 Dose: 40 mg Senna/Docusate Sodium (Senna Plus Tablet) 1 tab PO HS [facility] Last Admin: 11/22/16 21:26 Dose: 1 tab Sodium Chloride (Saline Flush) 10 ml IV Q8 [facility] Last Admin: 11/23/16 05:56 Dose: Not Given Trazodone HCl (Desyrel) 50 mg PO HSP PRN PRN Reason: Insomnia Medical - PN: A/P - Time Spent With Patient Total time spent is greater than 50% in coordination of care (as documented) at patient's floor/unit and/or counseling patient: 15 - 24 minutes (1) Severe sepsis with acute organ dysfunction due to Gram negative bacteria Status: Acute Assessment and plan: * Escherichia coli bacteremia- Surveillance cultures negative. Continue antibiotics based on sensitivities * Severe sepsis due to Escherichia coli bacteremia- clinically improved. target 14 days antibiotics. * Complicated Klebsiella/Escherichia coli UTI -Negative renal ultrasound. * HTN-continue amlodipine/JUANJO inhibitor * Anxiety disorder on alprazolam * hypothyroidism on thyroxine * GERD on PPI * anticoagulation on apixiban * Full CODE STATUS Plan * Start Rocephin * pre-existing medical condition management as above * antibiotic for additional 12 days * Case management to arrange SNF transfer Current Visit: Yes Medical - PN: Qual - VTE Deep Vein Thrombosis/Pulmonary Embolism Present on Admission: No
[2016-11-23] MEDS ORDERED: cefTRIAXone 2 GM in DEXTROSE 5% IN WATER 50 ML IV SCH (11:00)
[2016-11-23] MEDS ORDERED: LEVOFLOXACIN 750 MG/150 ML BAG IV SCH (12:00)
[2016-11-23] MEDS ORDERED: NITROGLYCERIN 0.4 MG TAB.SUBL SL PRN (19:25)
[2016-11-23] MEDS ORDERED: NITROGLYCERIN 0.4 MG TAB.SUBL SL ONE (19:32)
[2016-11-23] MEDS ORDERED: ACETAMINOPHEN 1,000 MG/100 ML BOTTLE IV PRN (19:41)
[2016-11-23] MEDS ORDERED: ONDANSETRON 4 MG/2 ML VIAL IV PRN (19:41)
[2016-11-23] MEDS ORDERED: HYDROcodone/APAP 5/325MG TABLET PO PRN (19:41)
[2016-11-23] MEDS ORDERED: ACETAMINOPHEN 325 MG TABLET PO PRN (19:41)
[2016-11-23] MEDS ORDERED: traZODone HCL 50 MG TABLET PO PRN (19:41)
[2016-11-23] MEDS ORDERED: SENNOSIDES/DOCUSATE SODIUM 1 TAB TABLET PO SCH (21:00)
[2016-11-23] MEDS ORDERED: ASPIRIN 81 MG TAB.CHEW CHEWED ONE (21:02)
[2016-11-23 21:06] LABS: Creatine Kinase 29 IU/L (24-170); Creatine Kinase MB 1.4 ng/ml (0-2.9)
[2016-11-23] MEDS: 0.9 % SODIUM CHLORIDE 1,000 ML IV SCH (21:40)
[2016-11-23] MEDS: LEVOFLOXACIN 750 MG/150 ML BAG IV SCH (22:02)
[2016-11-24] MEDS: 0.9 % SODIUM CHLORIDE 10 ML SYRINGE IV SCH (05:54)
[2016-11-24 06:28] LABS: Mean Cell Volume 90.5 fL (80.0-100.0); Mean Corpuscular HGB Conc 32.9 g/dL (31.0-36.0); Mean Corpuscular Hemoglobin 29.8 pg (26.0-34.0); Platelet Count 246 K/mcL (140-440); RBC 3.78 M/mcL (4.00-5.20); Red Cell Distribution Width 17.1 % (11.5-14.5)
[2016-11-24 06:54] LABS: ALT/SGPT 20 U/l (0-40); Albumin 3.3 gm/dL (3.2-5.2); Albumin/Globulin Ratio 1.3 (1.0-2.3); Alkaline Phosphatase 99 U/L (39-117); Bilirubin,Direct < 0.2 mg/dL (0.0-0.3); Blood Urea Nitrogen 8 mg/dl (8-23); Gamma Glutamyl Transpeptidase 83 U/L (5-36); Magnesium 1.7 mg/dL (1.6-2.5); Phosphorous 3.6 mg/dL (2.7-4.5); Uric Acid 4.7 mg/dL (2.5-8.0)
[2016-11-24] MEDS ORDERED: PANTOPRAZOLE 40 MG VIAL IV SCH (07:30)
[2016-11-24] MEDS ORDERED: LEVOTHYROXINE SODIUM 112 MCG TABLET PO SCH (07:30)
[2016-11-24 07:56] LABS: Anisocytosis 1+ (NONE SEEN); Band Neutrophils % 3 % (0-10); Basophils % (Manual) 2 % (0-2); Eosinophils % (Manual) 1 % (0-7); Lymphocytes % 37 % (15-49); Metamyelocytes % 1 % (0-0); Monocytes % (Manual) 11 % (1-9); Platelet Estimate NORMAL (NORMAL); RBC Morphology ABNORM (NORMAL); Segmented Neutrophils % 43 % (38-78)
[2016-11-24] MEDS: APIXABAN 5 MG TABLET PO SCH (08:55)
[2016-11-24] MEDS: DOCUSATE SODIUM 100 MG CAPSULE PO SCH (08:55)
[2016-11-24] MEDS ORDERED: LISINOPRIL 20 MG TABLET PO SCH (09:00)
[2016-11-24] MEDS ORDERED: amLODIPine 10 MG TABLET PO SCH (09:00)
[2016-11-24] MEDS ORDERED: cefTRIAXone 2 GM in DEXTROSE 5% IN WATER 50 ML IV SCH ×2 (09:00→11:00)
--- NOTE | 2016-11-24 09:27 | Discharge Summary ---
Medical - DS: Prov Patient information: Note initiated : 11/24/16 at 9:25 am Service Date, if different from initiated Date: [] Patient: Natalee Rooney 81 y/o F admitted on 11/20/16 for Vomiting, Fast HR/Severe Sepsis, Complicated UTI. Chief Complaint: [] Date of admission: 11/20/16 17:42 Discharge date: 11/24/16 Primary care physician: [f_Reg Prim Care Provider] Medical - DS: Meds - Discharge Medications Prescriptions: Levofloxacin [Levaquin] 750 mg PO DAILY #10 tablet Active and Home Medications: Home Medications Apixaban [Eliquis] 5 mg PO BID 08/02/16 [History Confirmed 11/20/16 Last Taken 11/20/16 09:00] HYDROcodone/APAP 5/325MG [[place] 5/325Mg] 1 tab PO Q4HP PRN #14 tab 08/02/16 [Rx Confirmed 11/20/16 Last Taken 11/20/16 09:00] Lisinopril [Zestril] 40 mg PO DAILY 08/02/16 [History Confirmed 11/20/16 Last Taken 11/20/16 09:00] Omeprazole 20 mg PO DAILY 08/02/16 [History Confirmed 11/20/16 Last Taken 09:00] Levothyroxine [Synthroid] 112 mcg PO DAILY 11/20/16 [History Confirmed 11/20/16 Last Taken 11/20/16 09:00] amLODIPine [Norvasc] 10 mg PO DAILY 11/20/16 [History Confirmed 11/20/16 Last Taken 11/20/16 09:00] Metoprolol Succinate [Toprol Xl] 50 mg PO BID 11/23/16 [History Confirmed Last Taken Unknown] Levofloxacin [Levaquin] 750 mg PO DAILY #10 tablet 11/24/16 [Rx Last Taken Unknown] Medical - DS: Hosp Hospital course: Discharge diagnoses * Escherichia coli bacteremia- Surveillance cultures negative. continue oral Levaquin based on culture sensitivities * Severe sepsis due to above- clinically improved. continue additional 10 days Levaquin. * Complicated Klebsiella/Escherichia coli UTI -Negative renal ultrasound. continue oral antibiotics as outpatient * HTN-continue amlodipine/JUANJO inhibitor and restart metoprolol * trial fibrillation rate controlled on metoprolol * Anxiety disorder on alprazolam * hypothyroidism on thyroxine * GERD on PPI * anticoagulation for CVA prophylaxis on apixiban [facility] COURSE 11/20- Patient admitted with severe sepsis/complicated UTI and bacteremia. Admitted to ICU. Elevated lactate. On crystalloids antibiotics and close hemodynamic monitoring. Renal ultrasound pending 11/21- Patient doing well. Stable hemodynamics. Afebrile. Awaiting ultrasound. Surveillance cultures pending. Transfer to medical floor. Continue antibiotic coverage and target minimum 10-14 days after last negative blood culture based on sensitivities. 11/22- Gram-negative bacteremia to 2 cultures positive. Surveillance cultures pending. Urine culture GNR. Await ID/sensitivities. Continue aztreonam/ Levaquin. Clinically improving. Target 14 days antibiotics from last negative culture. renal ultrasound unremarkable. Stable hemodynamics. No overnight fever,chills abdominal pain, diarrhea or concerns per staff. discussed treatment plan and 14 day antibiotic with patient. Continue physical therapy 11/23- Patient doing well. No overnight events. No concerns per staff. Cultures revealing Klebsiella/Escherichia coli . Pansensitive. De-escalate antibiotics. Start Rocephin. Anticipate discharge to SNF in 24 hours. No overnight fever chills nausea vomiting 11/24- patient refusing SNF transfer. Requesting discharge home. Cardiac enzymes negative no telemetry events except for A. fib with intermittent RVR. Restarted on metoprolol. White count stable. Surveillance cultures negative. No overnight fever chills nausea vomiting, or chest pain shortness of breath. detailed discharge instructions as below. Continue antibiotics for additional 10 days. Follow up recommendations as below Discharge diagnosis: Escherichia coli bacteremia, severe sepsis - Time Spent with Patient Total time spent providing and/or coordinating discharge services: Greater than 30 minutes Medical - DS: Exam - Constitutional Vitals: Vital Signs Temp Pulse Resp BP Pulse Ox 11/24/16 08:00 98.0 F 24 142/80 94 11/24/16 04:00 98.0 F 85 18 167/91 95 11/24/16 00:00 97.3 F L 90 16 165/98 94 11/23/16 21:54 99 H 167/85 11/23/16 20:24 103 H 135/80 11/23/16 20:19 103 H 144/80 11/23/16 19:48 104 H 18 166/74 96 11/23/16 19:35 99 H 156/75 11/23/16 19:20 98.9 F 108 H 18 172/83 94 11/23/16 16:00 97.8 F 83 16 171/84 96 11/23/16 12:00 98.7 F 73 16 162/74 96 Intake and Output 11/23/16 11/24/16 11/24/16 21:59 05:59 13:59 Intake Total 1000 / 1000 300 / 300 200 / 200 Output Total 102 / 102 102 / 102 Balance 898 / 898 198 / 198 200 / 200 Intake: IV 1000 / 1000 Sodium Chloride 0.9% 1, 1000 / 1000 000 ml @ 50 mls/hr IV . Q20H AARON Rx#:[id number] Oral 300 / 300 200 / 200 Output: Void Amount 100 / 100 100 / 100 # of times incontinent of 2 / 2 2 / 2 urine Other: Meal Breakfast Percent of Meal Consumed 100% Feeding Ability Independent # Voids 1 1 Weight 194 lb General appearance: morbidly obese, no acute distress Additional comments: alert oriented nonlabored breathing Nontender abdomen no anxiety Medical - DS: Data Labs on day of discharge: Labs from last 24 hours 11/24/16 11/24/16 11/24/16 04:35 04:35 04:30 WBC RBC Hgb Hct MCV MCH MCHC RDW Plt Count MPV Total Counted Seg Neutrophils % Band Neutrophils % Lymphocytes % Monocytes % (Manual) Eosinophils % (Manual) Basophils % (Manual) Metamyelocytes % Reactive Lymphocytes Platelet Estimate RBC Morphology Anisocytosis Sodium 140 Potassium 3.8 Chloride 103 Carbon Dioxide 24 Anion Gap 13.0 BUN 8 Creatinine 0.7 GFR Calculation 81 Glucose 89 Uric Acid 4.7 Calcium 8.9 Phosphorus 3.6 Magnesium 1.7 Total Bilirubin 0.3 Direct Bilirubin < 0.2 GGT 83 H AST 18 ALT 20 Alkaline Phosphatase 99 Lactate Dehydrogenase 140 Total Creatine Kinase 22 L CK-MB (CK-2) 1.3 Troponin T < 0.01 Total Protein 5.8 L Albumin 3.3 Globulin 2.5 Albumin/Globulin Ratio 1.3 Triglycerides 98 11/24/16 11/23/16 11/23/16 04:30 19:42 19:42 WBC 3.8 L RBC 3.78 L Hgb 11.3 L Hct 34.2 L MCV 90.5 MCH 29.8 MCHC 32.9 RDW 17.1 H Plt Count 246 MPV 7.8 Total Counted 100 Seg Neutrophils % 43 Band Neutrophils % 3 Lymphocytes % 37 Monocytes % (Manual) 11 H Eosinophils % (Manual) 1 Basophils % (Manual) 2 Metamyelocytes % 1 H Reactive Lymphocytes 2 Platelet Estimate Normal RBC Morphology Abnorm A Anisocytosis 1+ A Sodium Potassium Chloride Carbon Dioxide Anion Gap BUN Creatinine GFR Calculation Glucose Uric Acid Calcium Phosphorus Magnesium Total Bilirubin Direct Bilirubin GGT AST ALT Alkaline Phosphatase Lactate Dehydrogenase Total Creatine Kinase 29 CK-MB (CK-2) 1.4 Troponin T < 0.01 Total Protein Albumin Globulin Albumin/Globulin Ratio Triglycerides Preliminary micro results at discharge 11/22/16 10:35 Blood Culture - Preliminary Blood 11/22/16 10:25 Blood Culture - Preliminary Blood 11/21/16 08:35 Blood Culture - Preliminary Blood 11/21/16 08:40 Blood Culture - Preliminary Blood Medical - DS: A/P - Patient/Caregiver Discharge Instructions Activity: increase activity as tolerated, resume usual activities as tolerated Diet: Regular Diet Additional Instructions: Follow-up PCP in 5 days I recommend primary care physician to check CBC BMP UA as a posthospital follow -up Antibiotics for 10 days Continue fall precautions All meals on chair sitting upright at 90 degrees to prevent aspiration Return to ER if worsening fever chills, abdominal pain, diarrhea, bleeding Review risk and side effect profile of medications including antibiotics. Side effect may include mild to severe reaction including rash, diarrhea, cdiff and even which can be prevented by close follow-up with PCP and monitoring for side effects Continue diet and activity as advised Discussed importance of medication adherence Please review medication list with patient prior to discharge Please schedule follow-up with PCP/Providers prior to discharge and provide printouts Portions of this chart may have been created with [employer] voice recognition software. Occasional wrong-word or ?sound-like? substitutions may have occurred due to the inherent limitations of voice recognition software. Please read the chart carefully and recognize, using context, where the substitutions have occurred. CC- PCP Prescriptions: Levofloxacin [Levaquin] 750 mg PO DAILY #10 tablet - Follow up Plan Follow up with: Deanne Chris MD [Primary Care Provider] - Disposition: Home, Self-Care Prognosis: Fair Rehab Potential: Fair I certify that the patient requires SNF services: No Overall status at discharge: patient is back to baseline Medical - DS: Qual - VTE Deep Vein Thrombosis/Pulmonary Embolism Present on Admission: No
[2016-11-24] MEDS ORDERED: FLU VACC QS2016-17 36MOS UP/PF 60 MCG/0.5 ML SYRINGE IM ONE (10:45)
[2016-11-24] MEDS ORDERED: PNEUMOCOCCAL 23-VAL P-SAC VAC 0.5 ML VIAL IM ONE (10:45)
[2016-11-25] MEDS ORDERED: METOPROLOL SUCCINATE 50 MG TAB.XL.24H PO SCH (09:00)
[2016-11-25] MEDS ORDERED: LEVOFLOXACIN 750 MG/150 ML BAG IV SCH (10:00)
== END 2016-11-24 11:40 | disposition home or self-care (01) | DRG 872 ==
LOC: ED 14:42 → ICU 17:42 → MEDSUR 11-21 19:00
PROVIDERS: ADMIT Internal Medicine; ATTEND Internal Medicine

== ENCOUNTER 2022-10-17 19:20 | Inpatient (IN) ==
[2022-10-17 19:53] LABS: POC Calcium, Ionized 1.13 (1.16-1.32); POC Creatinine 4.2 (0.6-1.2); POC Potassium 4.9 (3.3-5.1)
--- NOTE | 2022-10-17 20:02 | Emergency Department Note ---
Chest Pain HPI General Chief Complaint: Chest Pain Stated Complaint: chest pain Time Seen by Provider: 10/17/22 19:27 Source: patient and EMS Mode of arrival: EMS Limitations: no limitations History of Present Illness HPI Narrative: 87-year-old female with history of CAD status post stents, NSTEMI in June, atrial fibrillation on chronic anticoagulation, CKD stage III, CHF, cognitive dysfunction, osteoarthritis, chronic pain, presents to the ER with complaint of chest pain. Patient has memory issues and son is at the bedside to help with her history. He notes that her chest pain started about 2 hours ago. She has had constant belching through the course of the day. No history of GERD, but per medication review does take omeprazole. Currently she is denying chest pain. She took 2 nitroglycerin before coming into the ER. She denies nausea or vomiting. She does endorse some mild shortness of breath. She has now complained of a headache. Patient was sent to [facility] from our ER in June for NSTEMI. I do not have their notes for review and son is not able to tell me what was done. He t hinks they may have associated it with her atrial fibrillation. EKG currently shows sinus rhythm with a rate of 54 bpm. There are no acute segment ST elevations to suggest STEMI. She does have nonspecific ST changes with ST flattening in V4 through V6. Presenting troponin is 0.04. Related Data Home Medications Medication Instructions Recorded Confirmed omeprazole 20 mg tablet,delayed 20 mg PO DAILY 08/02/16 01/13/22 release losartan 100 mg tablet 100 mg PO QDAY 10/01/19 01/13/22 apixaban 5 mg tablet 2.5 mg PO BID 09/15/20 01/13/22 Previous Rx's Medication Instructions Recorded nitroglycerin 0.4 mg sublingual 0.4 mg SL Q5M PRN Chest Pain #15 05/20/18 tablet tabs hydrocodone 5 mg-acetaminophen 325 1 tab PO TID PRN pain #14 tabs 03/28/21 mg tablet metoprolol succinate 50 mg 50 mg PO QDAY #90 tabs 04/01/21 tablet,extended release 24 hr torsemide 10 mg tablet 10 mg PO QDAY #90 tabs 04/01/21 hydrocodone 5 mg-acetaminophen 325 1 tab PO TID PRN pain #9 tabs 04/27/22 mg tablet sulfamethoxazole 800 1 tab PO BID #10 tabs 05/27/22 mg-trimethoprim 160 mg tablet (Bactrim DS) sulfamethoxazole 800 2 tab PO Q12H 7 days #28 tabs 10/13/22 mg-trimethoprim 160 mg tablet (Bactrim DS) Allergies Allergy/AdvReac Type Severity Reaction Status Date / Time ampicillin Allergy Mild ITCHING Verified 10/17/22 19:31 Cephalosporins Allergy Mild Itching Verified 10/17/22 19:31 Review of Systems ROS ROS Narrative: Narrative: All systems ED: reviewed and negative except as stated. 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 chronic kidney disease (Chronic) Hyperparathyroidism (Chronic) Acute UTI (urinary tract infection) (Acute) Congestive heart failure (Acute) Acute pain of right hip (Acute) Left leg pain (Acute) Localized edema due to fluid overload (Chronic) Chronic kidney disease, stage 3b (Chronic) Subdural hematoma (Chronic) Memory loss (Chronic) Incontinence (Chronic) History of basal cell carcinoma (Chronic) Syncope (Chronic) Malaise (Chronic) Myalgia (Chronic) Degenerative joint disease of shoulder (Chronic) Dyspnea (Chronic) Arthritis of shoulder (Chronic) Back pain (Chronic) GERD (gastroesophageal reflux disease) (Chronic) Leg cramps (Chronic) Atrial fibrillation (Chronic) Hemorrhoid (Chronic) Pain of cervical spine (Chronic) Anemia (Chronic) Atherosclerosis of coronary artery of [place] heart with angina pectoris (Chronic) Rash (Chronic) Osteopenia (Chronic) Hypertriglyceridemia (Chronic) Dysuria (Chronic) Decreased renal function (Chronic) Generalized weakness (Chronic) UTI (urinary tract infection) (Chronic) Lactic acidosis (Chronic) Severe sepsis with acute organ dysfunction due to Gram negative bacteria (Chronic) UTI (urinary tract infection) (Chronic) Chronic atrial fibrillation with RVR (Chronic) Chest pain not due to acute coronary syndrome (Chronic) Hypertension, essential (Chronic) JUANJO-inhibitor cough (Chronic) Epistaxis (Chronic) Encounter for removal of nasal packing (Chronic) Laceration of right temporomandibular area without foreign body (Chronic) Laceration (Chronic) Encounter for wound re-check (Chronic) Medical History JUANJO-inhibitor cough Anemia Arthritis of shoulder Atherosclerosis of coronary artery of [place] heart with angina pectoris Atrial fibrillation Back pain Chest pain not due to acute coronary syndrome Chronic atrial fibrillation with RVR Decreased renal function Degenerative joint disease of shoulder Dyspnea Dysuria Encounter for removal of nasal packing Encounter for wound re-check Epistaxis Generalized weakness GERD (gastroesophageal reflux disease) Hemorrhoid History of basal cell carcinoma Hypertension, essential Hypertriglyceridemia Incontinence Laceration Laceration of right temporomandibular area without foreign body Lactic acidosis Leg cramps Malaise Memory loss Myalgia Osteopenia Pain of cervical spine Rash Severe sepsis with acute organ dysfunction due to Gram negative bacteria Subdural hematoma Syncope UTI (urinary tract infection) UTI (urinary tract infection) Surgical History History of basal cell carcinoma (BCC) excision (~2007) History of cholecystectomy (~1979) History of gastric surgery (~193) History of hysterectomy (~1972) History of knee surgery (~2000) Right knee replacement. History of surgery leg Family History Son Diabetes Cancer Daughter Breast cancer Family/Other Dementia Osteoporosis Social History Smoking Status: Never smoker Alcohol Intake Frequency: does not drink Substance Use: does not use Exam Narrative Narrative: General: AOx3, NAD, nontoxic appearing. Pleasant and conversant. HEENT: PERRL, EOMI, normocephalic. Moist mucous membranes. She has a notable growth of the left lateral frontal area of her scalp. There is a scab formation over the top. There is no active bleeding. Chest: Symmetric, no pain to palpation Respiratory: Lungs clear to auscultation bilaterally. No respiratory distress. Unlabored breathing. Heart: Regular rate and rhythm, no murmurs/clicks/rubs. Abdomen: Non-tender, Non distended, normal bowel tones. No organomegaly. Extremities: Warm and well perfused. No edema. DP 2+ bilaterally. No venous stasis. Neuro: No focal deficits. Cranial nerves II-XII grossly normal. Skin: Warm dry, no rashes or lesions, no cyanosis. Psych: Normal mood and affect Heme/Lymph: No abnormal bruising General Limitations: no limitations Course Course Course Narrative: 87-year-old female with history of CAD presents the ER with 2 hours of substernal chest pain Reevaluation(s) Reevaluation #1: Chest pain rule out with serial troponins, EKG, CBC, CHEM panel, chest x-ray. Vital Signs Vital signs: Vital Signs Temperature 98.3 F 10/17/22 19:29 Pulse Rate 55 L 10/17/22 19:29 Respiratory Rate 20 10/17/22 19:29 Blood Pressure 125/51 10/17/22 19:29 Pulse Oximetry (%) 100 10/17/22 19:29 Oxygen Delivery Method Room Air 10/17/22 19:29 Temperature 98.3 F 10/17/22 19:29 Pulse Rate 51 L 10/17/22 20:17 Respiratory Rate 14 10/17/22 20:17 Blood Pressure 119/49 10/17/22 20:17 Pulse Oximetry (%) 97 10/17/22 20:17 Oxygen Delivery Method Room Air 10/17/22 19:29 MDM MDM Narrative Medical decision making narrative: Chest pain Patient is being evaluated for her chest pain currently. Labs are pending. So far her troponin is not elevated and her EKG shows no acute ST segment changes to suggest ischemia. Notes from [place] are being obtained to review her hospital course in June. I signed the patient out to Dr. Mack at change of shift. Please see his note for further details and plan of care. Lab Data 10/17/22 19:48 Labs: Lab Results 10/17/22 10/17/22 10/17/22 Range/Units 19:43 19:45 19:48 WBC 10.2 (4.5-11.0) K/mcL RBC 2.62 L (3.59-5.38) M/mcL Hgb 7.9 L (11.2-15.7) g/dL Hct 23.7 L (34.1-44.9) % POC Hct 26.0 L (36-48) MCV 90.5 (80.0-100.0) fL MCH 30.2 (26.0-34.0) pg MCHC 33.3 (31.0-36.0) g/dL RDW 18.2 H (11.5-14.5) % Plt Count 636 H (140-440) K/mcL MPV 10.1 (8.8-12.5) fL Immature Gran % (Auto) 1.9 H (0.0-0.5) % Neut % (Auto) 73.0 (38.0-78.0) % Lymph % (Auto) 15.1 L (15.5-49.0) % [place] % (Auto) 8.0 (1.0-12.0) % Eos % (Auto) 1.6 (0.0-7.0) % Baso % (Auto) 0.4 (0.0-2.0) % Lymph # (Auto) 1.53 (1.50-4.80) K/mcL [place] # (Auto) 0.81 (0.10-0.90) K/mcL Eos # (Auto) 0.16 (0.00-0.70) K/mcL Baso # (Auto) 0.04 (0.00-0.30) K/mcL Immature Gran # 0.19 H (0.00-0.05) K/mcl Absolute Neutrophils 7.43 (1.80-8.00) K/mcL POC VBG pH (7.32-7.42) POC VBG pCO2 at Temp (41-51) POC VBG pO2 (25-40) POC VBG HCO3 (24-28) POC VBG Total CO2 (25-29) POC Venous O2 Sat (40-70) POC VBG Base Excess (-2-2) VBG Lactic Acid (0.5-2) POC Sodium 133 (133-145) POC Potassium 4.9 (3.3-5.1) POC Chloride 99 (96-108) POC Total CO2 24.0 (22-30) POC BUN 59 H (6-20) POC Creatinine 4.2 H (0.6-1.2) POC Glucose 108 H (70-105) POC WB Ioniz Calcium 1.13 L (1.16-1.32) POC Troponin I 0.04 (0.00-0.08) 10/17/22 Range/Units 19:49 WBC (4.5-11.0) K/mcL RBC (3.59-5.38) M/mcL Hgb (11.2-15.7) g/dL Hct (34.1-44.9) % POC Hct (36-48) MCV (80.0-100.0) fL MCH (26.0-34.0) pg MCHC (31.0-36.0) g/dL RDW (11.5-14.5) % Plt Count (140-440) K/mcL MPV (8.8-12.5) fL Immature Gran % (Auto) (0.0-0.5) % Neut % (Auto) (38.0-78.0) % Lymph % (Auto) (15.5-49.0) % [place] % (Auto) (1.0-12.0) % Eos % (Auto) (0.0-7.0) % Baso % (Auto) (0.0-2.0) % Lymph # (Auto) (1.50-4.80) K/mcL [place] # (Auto) (0.10-0.90) K/mcL Eos # (Auto) (0.00-0.70) K/mcL Baso # (Auto) (0.00-0.30) K/mcL Immature Gran # (0.00-0.05) K/mcl Absolute Neutrophils (1.80-8.00) K/mcL POC VBG pH 7.40 (7.32-7.42) POC VBG pCO2 at Temp 37.3 L (41-51) POC VBG pO2 29 (25-40) POC VBG HCO3 23.3 L (24-28) POC VBG Total CO2 24.0 L (25-29) POC Venous O2 Sat 56.0 (40-70) POC VBG Base Excess -1.0 (-2-2) VBG Lactic Acid 1.1 (0.5-2) POC Sodium (133-145) POC Potassium (3.3-5.1) POC Chloride (96-108) POC Total CO2 (22-30) POC BUN (6-20) POC Creatinine (0.6-1.2) POC Glucose (70-105) POC WB Ioniz Calcium (1.16-1.32) POC Troponin I (0.00-0.08) Discharge Plan Patient/Caregiver Discharge Instructions Pt seen by GATE CLERK/PA only: No Patient Disposition: Still a Patient Condition: Undetermined Follow up with: Deanne Chris MD [Primary Care Provider] - Prescriptions: No Action losartan 100 mg tablet 100 mg PO QDAY metoprolol succinate 50 mg tablet extended release 24 hr 50 mg PO QDAY Qty: 90 3RF torsemide 10 mg tablet 10 mg PO QDAY Qty: 90 3RF omeprazole 20 MG tablet,delayed release (DR/EC) 20 mg PO DAILY apixaban 5 mg tablet 2.5 mg PO BID nitroglycerin 0.4 MG tablet, sublingual 0.4 mg SL Q5M PRN (Reason: Chest Pain) Qty: 15 0RF Rx Instructions: MAY REPEAT Q5MIN X3 hydrocodone-acetaminophen 5-325 mg tablet 1 tab PO TID PRN (Reason: pain) Qty: 14 0RF hydrocodone-acetaminophen 5-325 mg tablet 1 tab PO TID PRN (Reason: pain) Qty: 9 0RF sulfamethoxazole-trimethoprim [Bactrim DS] 800-160 mg tablet 1 tab PO BID Qty: 10 0RF sulfamethoxazole-trimethoprim [Bactrim DS] 800-160 mg tablet 2 tab PO Q12H 7 Days Qty: 28 0RF
[2022-10-17] MEDS ORDERED: 0.9 % SODIUM CHLORIDE 1,000 ML IV ONE (20:16)
[2022-10-17 20:48] LABS: Basophils # (Auto) 0.04 K/mcL (0.00-0.30); Basophils % (Auto) 0.4 % (0.0-2.0); Eosinophils # (Auto) 0.16 K/mcL (0.00-0.70); Eosinophils % (Auto) 1.6 % (0.0-7.0); Hematocrit 23.7 % (34.1-44.9); Hemoglobin 7.9 g/dL (11.2-15.7); Lymphocytes # (Auto) 1.53 K/mcL (1.50-4.80); Lymphocytes % (Auto) 15.1 % (15.5-49.0); Mean Cell Volume 90.5 fL (80.0-100.0); Mean Corpuscular HGB Conc 33.3 g/dL (31.0-36.0); Mean Platelet Volume 10.1 fL (8.8-12.5); Monocytes # (Auto) 0.81 K/mcL (0.10-0.90); Platelet Count 636 K/mcL (140-440); RBC 2.62 M/mcL (3.59-5.38); Red Cell Distribution Width 18.2 % (11.5-14.5); WBC 10.2 K/mcL (4.5-11.0)
--- NOTE | 2022-10-17 20:59 | Emergency Department Note ---
Course Course Course Narrative: I assumed care of patient at 2100 pending labs and imaging. Please refer to midlevel note for care up to this point. Patient was evaluated for chest pain. EKG was unremarkable. Troponins are negative x2. Labs did reveal that patient BUN/creatinine were severely altered when compared to previous just 4 days ago. At that time her BUN/creatinine was normal. Her BUN was 54 and a creatinine of 4.2. Patient was given some IV fluids as well as some Lasix. There was slight improvement in her BUN and creatinine that trended down. Potassium was normal. As mentioned EKG was unremarkable. Was also noticed that patient's hemoglobin hematocrit had decreased. Patient had extensive bleeding from the laceration on her head. Stool guaiac was negative for blood. CT of chest abdomen pelvis obtained with no obvious intra-abdominal blood collection. CT of chest and face cannot be done with contrast due to patient's acute kidney injury. Believe patient's hemoglobin to be stable. Case was discussed with hospitalist who has agreed to admit the patient for acute kidney injury secondary to dehydration. Patient did receive IV fluids and Lasix here in the ED. Negative for COVID and flu. Chest x-ray was obtained with image reviewed myself with no acute cardiopulmonary finding. Plan of care was discussed with patient and she and her son expressed verbal understanding agreement of plan. Consultations Consultation #1: Case discussed with air intelligence specialist, Dr. Waite, he states that patient does not need immediate dialysis and can be admitted to our facility if the hospitalist is willing to accept except Time: 01:05 Consultation #2: Case discussed with hospitalist, Dr. Dheeraj Willis, who was agreed to admit patient to the hospital. Time: 01:15 Vital Signs Vital signs: Vital Signs Temperature 98.3 F 10/17/22 19:29 Pulse Rate 55 L 10/17/22 19:29 Respiratory Rate 20 10/17/22 19:29 Blood Pressure 125/51 10/17/22 19:29 Pulse Oximetry (%) 100 10/17/22 19:29 Oxygen Delivery Method Room Air 10/17/22 19:29 Temperature 98.3 F 10/17/22 19:29 Pulse Rate 64 10/18/22 01:01 Respiratory Rate 23 H 10/18/22 01:01 Blood Pressure 118/43 10/18/22 01:01 Pulse Oximetry (%) 99 10/18/22 01:01 Oxygen Delivery Method Room Air 10/17/22 19:29 MDM MDM Narrative Medical decision making narrative: Narrative: Lab Data 10/17/22 19:48 Labs: Lab Results 10/17/22 10/17/22 10/17/22 Range/Units 19:43 19:45 19:48 WBC 10.2 (4.5-11.0) K/mcL RBC 2.62 L (3.59-5.38) M/mcL Hgb 7.9 L (11.2-15.7) g/dL Hct 23.7 L (34.1-44.9) % POC Hct 26.0 L (36-48) MCV 90.5 (80.0-100.0) fL MCH 30.2 (26.0-34.0) pg MCHC 33.3 (31.0-36.0) g/dL RDW 18.2 H (11.5-14.5) % Plt Count 636 H (140-440) K/mcL MPV 10.1 (8.8-12.5) fL Immature Gran % (Auto) 1.9 H (0.0-0.5) % Neut % (Auto) 73.0 (38.0-78.0) % Lymph % (Auto) 15.1 L (15.5-49.0) % [place] % (Auto) 8.0 (1.0-12.0) % Eos % (Auto) 1.6 (0.0-7.0) % Baso % (Auto) 0.4 (0.0-2.0) % Lymph # (Auto) 1.53 (1.50-4.80) K/mcL [place] # (Auto) 0.81 (0.10-0.90) K/mcL Eos # (Auto) 0.16 (0.00-0.70) K/mcL Baso # (Auto) 0.04 (0.00-0.30) K/mcL Immature Gran # 0.19 H (0.00-0.05) K/mcl Absolute Neutrophils 7.43 (1.80-8.00) K/mcL POC VBG pH (7.32-7.42) POC VBG pCO2 at Temp (41-51) POC VBG pO2 (25-40) POC VBG HCO3 (24-28) POC VBG Total CO2 (25-29) POC Venous O2 Sat (40-70) POC VBG Base Excess (-2-2) VBG Lactic Acid (0.5-2) POC Sodium 133 (133-145) POC Potassium 4.9 (3.3-5.1) POC Chloride 99 (96-108) POC Total CO2 24.0 (22-30) POC BUN 59 H (6-20) POC Creatinine 4.2 H (0.6-1.2) POC Glucose 108 H (70-105) POC WB Ioniz Calcium 1.13 L (1.16-1.32) POC Troponin I 0.04 (0.00-0.08) 10/17/22 10/17/22 10/18/22 Range/Units 19:49 22:20 00:41 WBC (4.5-11.0) K/mcL RBC (3.59-5.38) M/mcL Hgb (11.2-15.7) g/dL Hct (34.1-44.9) % POC Hct 22.0 L (36-48) MCV (80.0-100.0) fL MCH (26.0-34.0) pg MCHC (31.0-36.0) g/dL RDW (11.5-14.5) % Plt Count (140-440) K/mcL MPV (8.8-12.5) fL Immature Gran % (Auto) (0.0-0.5) % Neut % (Auto) (38.0-78.0) % Lymph % (Auto) (15.5-49.0) % [place] % (Auto) (1.0-12.0) % Eos % (Auto) (0.0-7.0) % Baso % (Auto) (0.0-2.0) % Lymph # (Auto) (1.50-4.80) K/mcL [place] # (Auto) (0.10-0.90) K/mcL Eos # (Auto) (0.00-0.70) K/mcL Baso # (Auto) (0.00-0.30) K/mcL Immature Gran # (0.00-0.05) K/mcl Absolute Neutrophils (1.80-8.00) K/mcL POC VBG pH 7.40 (7.32-7.42) POC VBG pCO2 at Temp 37.3 L (41-51) POC VBG pO2 29 (25-40) POC VBG HCO3 23.3 L (24-28) POC VBG Total CO2 24.0 L (25-29) POC Venous O2 Sat 56.0 (40-70) POC VBG Base Excess -1.0 (-2-2) VBG Lactic Acid 1.1 (0.5-2) POC Sodium 135 (133-145) POC Potassium 4.5 (3.3-5.1) POC Chloride 102 (96-108) POC Total CO2 22.0 (22-30) POC BUN 54 H (6-20) POC Creatinine 4.1 H (0.6-1.2) POC Glucose 94 (70-105) POC WB Ioniz Calcium 1.12 L (1.16-1.32) POC Troponin I 0.02 (0.00-0.08) Radiology Data Radiology results reviewed: Yes I reviewed the patient's radiology results. Radiology results narrative: CT chest abdomen pelvis obtained with image reviewed myself, no acute findings EKG Data EKG #1: EKG attestation: Yes I reviewed and interpreted this EKG. EKG shows normal: sinus rhythm Rate: normal Rhythm: NSR [place]/QRS: normal Heart block present: None ST segment elevation in: None ST segment depression in: None QTc: normal QRS morphology: Present normal Interpretation: no acute changes and nonspecific ST-T wave changes Discharge Plan Patient/Caregiver Discharge Instructions Pt seen by LENS GENERATING MACHINE TENDER/PA only: No Clinical Impression: Acute kidney injury, Anemia, Acute dehydration Patient Disposition: Xfer As Inpt ([facility]) Condition: Fair Follow up with: Deanne Chris MD [Primary Care Provider] - Prescriptions: No Action losartan 100 mg tablet 100 mg PO QDAY metoprolol succinate 50 mg tablet extended release 24 hr 50 mg PO QDAY Qty: 90 3RF torsemide 10 mg tablet 10 mg PO QDAY Qty: 90 3RF omeprazole 20 MG tablet,delayed release (DR/EC) 20 mg PO DAILY apixaban 5 mg tablet 2.5 mg PO BID nitroglycerin 0.4 MG tablet, sublingual 0.4 mg SL Q5M PRN (Reason: Chest Pain) Qty: 15 0RF Rx Instructions: MAY REPEAT Q5MIN X3 hydrocodone-acetaminophen 5-325 mg tablet 1 tab PO TID PRN (Reason: pain) Qty: 14 0RF hydrocodone-acetaminophen 5-325 mg tablet 1 tab PO TID PRN (Reason: pain) Qty: 9 0RF sulfamethoxazole-trimethoprim [Bactrim DS] 800-160 mg tablet 1 tab PO BID Qty: 10 0RF sulfamethoxazole-trimethoprim [Bactrim DS] 800-160 mg tablet 2 tab PO Q12H 7 Days Qty: 28 0RF
[2022-10-17] MEDS ORDERED: FUROSEMIDE 40 MG/4 ML VIAL IV ONE (21:18)
[2022-10-18 00:46] LABS: POC Calcium, Ionized 1.12 (1.16-1.32); POC Creatinine 4.1 (0.6-1.2); POC Potassium 4.5 (3.3-5.1)
[2022-10-18] MEDS ORDERED: PROMETHAZINE 25 MG/ML VIAL IM PRN (01:18)
[2022-10-18] MEDS ORDERED: ACETAMINOPHEN 325 MG TABLET PO PRN ×2 (01:18→07:55)
[2022-10-18] MEDS ORDERED: ONDANSETRON 4 MG/2 ML VIAL IV PRN ×2 (01:18→07:55)
--- NOTE | 2022-10-18 02:55 | XRay Report ---
CLINICAL INFORMATION: Chest pain COMPARISON: 07/14/2022 TECHNIQUE: Portable FINDINGS: Mild cardiomegaly has increased from previous exam. Mediastinum is unremarkable. Pulmonary vessels are mildly distended and there is minimal interstitial edema in the lateral bases. No infiltrates or effusions. Severe left glenohumeral degeneration again noted. Right shoulder prostheses is unremarkable IMPRESSION: Mild CHF Interpreted and Authenticated by: Dante Vick 10/18/22
[2022-10-18] MEDS: 0.9 % SODIUM CHLORIDE 1,000 ML IV SCH ×3 (03:45→16:01)
--- NOTE | 2022-10-18 05:03 | Cat Scan Report ---
CLINICAL INFORMATION: Anemia COMPARISON: None. TECHNIQUE: Decreased creatinine clearance precluded use of IV contrast. 0.625 mm helical slices were obtained from the lung apices through the subtrochanteric regions of the femurs. Following reconstruction, 2.5 mm sagittal, coronal and axial reformatted images were processed and reviewed at multiple windows and levels. 7 mm MIP reconstructions were obtained through the lungs to optimize nodule detection.The exam was performed using radiation dose optimization techniques including, but not limited to, automated exposure control, adjustment of the mA and/or kV according to patient size and use of iterative reconstruction technique. FINDINGS: Pulmonary parenchymal windows show subsegmental atelectasis in the posterior dependent upper and lower lobes. No cammie infiltrates. Pleural spaces are unremarkable-no effusions. Mediastinal windows show the heart is moderately enlarged with heavy calcific plaque in the coronary arteries. The noncontrasted thoracic aorta and pulmonary arteries are normal diameter. There is no adenopathy in the mediastinal, hilar or axillary regions. Esophagus is grossly normal. Thyroid unremarkable. Abdominal images show the gallbladder and bile ducts, liver, adrenal glands, and spleen are normal in size, configuration and attenuation without focal lesion. Aorta is normal diameter. There is extremely heavy calcific plaque throughout the abdominal aorta. Heavy calcific plaque also be seen in the proximal right renal artery suspect stenosis in this region. Moderate calcific plaque seen within the remaining aortic branches. Mild atrophy of the pancreatic head neck and proximal body appreciated. Both kidneys are mildly atrophic: the left is 8.7 cm in length and the right is 7.9 cm in length. No focal renal lesions. There is no free air, free fluid or adenopathy. Pelvic images show normal urinary bladder. Hysterectomy oophorectomy changes appreciated. Moderate stool is impacted within the rectum. The stomach, small bowel, appendix region and large bowel are grossly normal. Bone windows show diffuse osteoporosis with mild chronic-appearing L1-L2 compression fractures appreciated. There is also minimal chronic wedging of several lower thoracic vertebral bodies. No soft tissue abnormality. IMPRESSION: 1. A specific cause for anemia is not apparent. Decreased erythropoietin due to bilateral renal atrophy may be a factor if the anemia is normocytic. Otherwise, GI blood loss would be a common cause. Consider tagged red blood cell study. 2. Moderate stool impaction within the rectum. 3. Osteoporosis with mild chronic compression fractures of the L1 and L2 vertebral bodies. 4. Mild pancreatic atrophy. 5. Moderate cardiomegaly with heavy calcific plaque in the coronary arteries Interpreted and Authenticated by: Dante Vick 10/18/22
--- NOTE | 2022-10-18 06:48 | Nephrology Consult Note ---
HPI Date of Consult Consult Date: 10/18/22 Requesting physician: Yolanda Parr Primary Care Provider: Deanne Chris Consult Narrative Chief complaint: Chest pain Reason for consult: Acute kidney injury History of present illness: Natalee Rooney is an 87-year-old female with chronic kidney disease stage 3b, coronary artery disease s/p stents, atrial fibrillation on chronic anticoagulation, diabetes mellitus type 2 and hypertension admitted on 10/18/22. She initially presented to [facility] ED for a forehead lesion on 10/13/22 and prescribed Bactrim for UTI. She presented to ED again for chest pain on 10/07/22 and was diagnosed with WILLIE. Nephrology consultation was requested for acute kidney injury. cc:: CC: Yolanda Parr MD Constitutional Constitutional: Present lethargy and weakness EENT Nose, mouth and throat: Absent nasal congestion or sore throat Cardiovascular Cardiovascular: Absent chest pain or palpatations Respiratory Respiratory: Absent dyspnea or wheezing Gastrointestinal Gastrointestinal: Present abdominal pain; Absent nausea or vomiting Genitourinary Genitourinary: Absent dysuria or hematuria Musculoskeletal Musculoskeletal: Absent joint swelling Integumentary Integumentary: Absent rash or wounds Neurological Neurological: Present weakness; Absent confusion Psychiatric Psychiatric: Absent anxiety or panic attacks Hematologic/Lymphatic Hematologic/Lymphatic: Absent easy bleeding or easy bruising Allergic/Immunologic Allergic/Immunologic: Absent tongue swelling or uticaria PFSH PFSH All Active Problems (Updated 10/18/22 @ 06:44 by Eben Waite MD) Acute renal failure with acute tubular necrosis superimposed on stage 3b chronic kidney disease (Acute) Acute kidney injury (Acute) Anemia (Acute) Acute dehydration (Acute) Open fracture of toe of left foot (Acute) Acute UTI (Acute) Weakness (Acute) Knee sprain (Acute) Acute non-ST elevation myocardial infarction (NSTEMI) (Acute) Complex laceration of forehead (Acute) Traumatic hematoma of forehead (Acute) 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 chronic kidney disease (Chronic) Hyperparathyroidism (Chronic) Acute UTI (urinary tract infection) (Acute) Congestive heart failure (Acute) Acute pain of right hip (Acute) Left leg pain (Acute) Localized edema due to fluid overload (Chronic) Chronic kidney disease, stage 3b (Chronic) Subdural hematoma (Chronic) Memory loss (Chronic) Incontinence (Chronic) History of basal cell carcinoma (Chronic) Syncope (Chronic) Malaise (Chronic) Myalgia (Chronic) Degenerative joint disease of shoulder (Chronic) Dyspnea (Chronic) Arthritis of shoulder (Chronic) Back pain (Chronic) GERD (gastroesophageal reflux disease) (Chronic) Leg cramps (Chronic) Atrial fibrillation (Chronic) Hemorrhoid (Chronic) Pain of cervical spine (Chronic) Anemia (Chronic) Atherosclerosis of coronary artery of [place] heart with angina pectoris (Chronic) Rash (Chronic) Osteopenia (Chronic) Hypertriglyceridemia (Chronic) Dysuria (Chronic) Decreased renal function (Chronic) Generalized weakness (Chronic) UTI (urinary tract infection) (Chronic) Lactic acidosis (Chronic) Severe sepsis with acute organ dysfunction due to Gram negative bacteria (Chronic) UTI (urinary tract infection) (Chronic) Chronic atrial fibrillation with RVR (Chronic) Chest pain not due to acute coronary syndrome (Chronic) Hypertension, essential (Chronic) JUANJO-inhibitor cough (Chronic) Epistaxis (Chronic) Encounter for removal of nasal packing (Chronic) Laceration of right temporomandibular area without foreign body (Chronic) Laceration (Chronic) Encounter for wound re-check (Chronic) Medical History (Updated 10/18/22 @ 06:44 by Eben Waite MD) JUANJO-inhibitor cough Anemia Arthritis of shoulder Atherosclerosis of coronary artery of [place] heart with angina pectoris Atrial fibrillation Back pain Chest pain not due to acute coronary syndrome Chronic atrial fibrillation with RVR Decreased renal function Degenerative joint disease of shoulder Dyspnea Dysuria Encounter for removal of nasal packing Encounter for wound re-check Epistaxis Generalized weakness GERD (gastroesophageal reflux disease) Hemorrhoid History of basal cell carcinoma Hypertension, essential Hypertriglyceridemia Incontinence Laceration Laceration of right temporomandibular area without foreign body Lactic acidosis Leg cramps Malaise Memory loss Myalgia Osteopenia Pain of cervical spine Rash Severe sepsis with acute organ dysfunction due to Gram negative bacteria Subdural hematoma Syncope UTI (urinary tract infection) UTI (urinary tract infection) Surgical History History of basal cell carcinoma (BCC) excision (~2007) History of cholecystectomy (~1979) History of gastric surgery (~193) History of hysterectomy (~1972) History of knee surgery (~2000) Right knee replacement. History of surgery leg Family History Son Diabetes Cancer Daughter Breast cancer Family/Other Dementia Osteoporosis Social History marital status: occupational status: retired other: Children-5 smoking status: Never smoker alcohol intake frequency: does not drink substance use type: does not use MEDS/ALLERGIES Home Medications and Allergies Home Medications Medication Instructions Recorded Confirmed Type omeprazole 20 mg tablet,delayed 20 mg PO DAILY 08/02/16 01/13/22 History release nitroglycerin 0.4 mg sublingual 0.4 mg SL Q5M PRN Chest Pain #15 05/20/18 01/13/22 Rx tablet tabs losartan 100 mg tablet 100 mg PO QDAY 10/01/19 01/13/22 History apixaban 5 mg tablet 2.5 mg PO BID 09/15/20 01/13/22 History hydrocodone 5 mg-acetaminophen 325 1 tab PO TID PRN pain #14 tabs 03/28/21 01/13/22 Rx mg tablet metoprolol succinate 50 mg 50 mg PO QDAY #90 tabs 04/01/21 01/13/22 Rx tablet,extended release 24 hr torsemide 10 mg tablet 10 mg PO QDAY #90 tabs 04/01/21 01/13/22 Rx hydrocodone 5 mg-acetaminophen 325 1 tab PO TID PRN pain #9 tabs 01/18/22 Rx mg tablet sulfamethoxazole 800 1 tab PO BID #10 tabs 05/27/22 Rx mg-trimethoprim 160 mg tablet (Bactrim DS) sulfamethoxazole 800 2 tab PO Q12H 7 days #28 tabs 10/13/22 Rx mg-trimethoprim 160 mg tablet (Bactrim DS) Allergies Allergy/AdvReac Type Severity Reaction Status Date / Time ampicillin AdvReac Mild ITCHING Verified 10/18/22 06:38 Cephalosporins AdvReac Mild Itching Verified 10/18/22 06:38 Physical Examination Vital Signs Vital signs: Temp Pulse Resp BP Pulse Ox O2 Del Method 97.9 F 62 20 125/86 100 Room Air 10/18/22 03:48 10/18/22 03:48 10/18/22 03:48 10/18/22 03:48 10/18/22 03:48 10/18/22 03:48 General Appearance General appearance: chronically ill and fatigue EENT EENT: mucous membranes moist Respiratory Respiratory: clear Cardiovascular Cardiology: no edema Gastrointestinal Gastrointestinal: no tenderness Integumentary Integumentary: warm and dry Musculoskeletal Musculoskeletal: no deformities Psychiatric Psychiatric: mood/affect appropriate and cooperative Results Lab Results 10/17/22 19:48 A/P Assessment and plan (1) Acute renal failure with acute tubular necrosis superimposed on stage 3b chronic kidney disease: Assessment and plan: Natalee Rooney is an 87-year-old female with chronic kidney disease stage 3b, coronary artery disease s/p stents, atrial fibrillation on chronic anti coagulation, diabetes mellitus type 2 and hypertension admitted on 10/18/22. She initially presented to [facility] ED for a forehead lesion on 10/13/22 and prescribed Bactrim for UTI. She presented to ED again for chest pain on 10/07/22 and was diagnosed with WILLIE. Nephrology consultation was requested for acute kidney injury. Acute kidney injury, likely acute tubular necrosis associated with a new pre scription of Bactrim on Losartan and Torsemide on chronic kidney disease stage 3b, present on arrival. There is no recent history of IV contrast administration or NSAID use. Intravascular volume depletion considered. Work up: CT Chest, Abdomen and Pelvis without contrast on 10/18/22: A specific cause for anemia is not apparent. Decreased erythropoietin due to bilateral renal atrophy may be a factor if the anemia is normocytic. Otherwise, GI blood loss would be a common cause. Consider tagged red blood cell study. Moderate stool impaction within the rectum. Osteoporosis with mild chronic compression fractures of the L1 and L2 vertebral bodies. Mild pancreatic atrophy. Moderate cardiomegaly with heavy calcific plaque in the coronary arteries. Progress: Serum creatinine increased from 1.1 (10/13/22) to 4.2 (01/15/23), 4.1 (01/16/23). Baseline serum creatinine 1.1 on 10/13/22. Urine output: Not reported in the past 24 hours. No fluid overload. No uremic symptoms. Recommendations/Plan: No acute hemodialysis need. Monitor BMP and urine output. Avoid NSAIDs, nephrotoxic medications and IV contrast. Hold ARB, diuretics. Status: Acute Time Spent With Patient Time: Total time spent is greater than 50% in coordination of care (as documented) at patient's floor/unit and/or counseling patient:
[2022-10-18] MEDS ORDERED: 0.9 % SODIUM CHLORIDE 250 ML IV SCH (08:00)
[2022-10-18 09:03] LABS: Blood Urea Nitrogen 52 mg/dL (8-23); Calcium 8.4 mg/dL (8.6-10.4); Carbon Dioxide 21 mmol/L (22-30); Chloride 101 mmol/L (96-108); Glomerular Filtration Rate 11; Glucose 81 mg/dL (70-105)
[2022-10-18] MEDS: DOCUSATE SODIUM 100 MG CAPSULE PO SCH ×2 (10:20→22:05)
--- NOTE | 2022-10-18 12:03 | EKG ---
[facility] Test Date: 2022-10-17 Pat Name: Natalee Rooney Department: ED Room: Gender: Female Family Day Care Provider: : 1935 Requested By: Rakesh Mack Order Number: [id number] Reading MD: Dante Cabrera M.D. Measurements Intervals [place] Rate: 54 P: 62 CO: 174 QRS: 10 QRSD: 97 T: 80 QT: 501 QTc: 473 Interpretive Statements Sinus rhythm Electronically Signed On 10-18-2022 12:03:05 PST by Dante Cabrera M.D. /store/[id number]
--- NOTE | 2022-10-18 12:41 | Internal Med History&Physical ---
HPI History of Present Illness Patient information: Note initiated : 10/18/22 at 12:39 pm Service Date, if different from initiated Date: [] Patient: Natalee Rooney a 87 y/o F admitted on 10/18/22 for chest pain. Chief Complaint: [Chest pain] Chief complaint: Chest pain History of present illness: Ms. Rooney is a 87 year old F with a past medical history significant for subdural hematoma, chronic atrial fibrillation, congestive heart failure, CKD stage III and recent NSTEMI who presents to the hospital once again complaining of chest pain. The patient was in the ER a few days ago for a fall resulting in a severe head laceration. The patient had a significant bleeding episode in the setting of full anticoagulation as she is on Eliquis. The patient was also complaining of chest pain at that time and she was transferred to [facility] where she had a full work-up however declined aggressive medical management. From my understanding, she did not undergo left heart cath. The patient now presents to the hospital once again with complaints of chest pain. Troponins are unrevealing and EKG did not reveal dynamic ST changes. She was found to be anemic as her hemoglobin dropped from 11.4 recently to 7.9. She was also found to have a creatinine of 4.1. The patient's blood pressure was running on the low side as well as she was found to have blood pressure of 104/58. The hospitalist service was asked admit the patient for further management and evaluation of her acute kidney injury. Review of Systems All systems: reviewed and no additional remarkable complaints except as stated Constitutional Constitutional: Present as per HPI EENT Eyes: Present as per HPI; Absent blurry vision Cardiovascular Cardiovascular: Present as per HPI; Absent chest pain, dyspnea, dyspnea on exertion, leg edema or palpatations Respiratory Respiratory: Present as per HPI; Absent cough, dyspnea, dyspnea on exertion, wheezing or stridor Gastrointestinal Gastrointestinal: Present as per HPI; Absent abdominal pain, diarrhea, dysphagia, hematemesis, melena, nausea or vomiting Musculoskeletal Musculoskeletal: Present as per HPI; Absent joint swelling, limited range of motion, muscle cramps, muscle weakness or myalgias Integumentary Integumentary: Present as per HPI; Absent erythema, new lesions, rash or wounds Neurological Neurological: Present as per HPI; Absent abnormal gait, behavioral changes, focal weakness, headache(s), loss of vision, numbness, sensory deficit or syncope Endocrine Endocrine: Absent change in body appearance, fatigue or heat intolerance Hematologic/Lymphatic Hematologic/Lymphatic: Present as per HPI PFSH PFSH All Active Problems (Updated 10/18/22 @ 06:44 by Eben Waite MD) Acute renal failure with acute tubular necrosis superimposed on stage 3b chronic kidney disease (Acute) Acute kidney injury (Acute) Anemia (Acute) Acute dehydration (Acute) Open fracture of toe of left foot (Acute) Acute UTI (Acute) Weakness (Acute) Knee sprain (Acute) Acute non-ST elevation myocardial infarction (NSTEMI) (Acute) Complex laceration of forehead (Acute) Traumatic hematoma of forehead (Acute) 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 chronic kidney disease (Chronic) Hyperparathyroidism (Chronic) Acute UTI (urinary tract infection) (Acute) Congestive heart failure (Acute) Acute pain of right hip (Acute) Left leg pain (Acute) Localized edema due to fluid overload (Chronic) Chronic kidney disease, stage 3b (Chronic) Subdural hematoma (Chronic) Memory loss (Chronic) Incontinence (Chronic) History of basal cell carcinoma (Chronic) Syncope (Chronic) Malaise (Chronic) Myalgia (Chronic) Degenerative joint disease of shoulder (Chronic) Dyspnea (Chronic) Arthritis of shoulder (Chronic) Back pain (Chronic) GERD (gastroesophageal reflux disease) (Chronic) Leg cramps (Chronic) Atrial fibrillation (Chronic) Hemorrhoid (Chronic) Pain of cervical spine (Chronic) Anemia (Chronic) Atherosclerosis of coronary artery of [place] heart with angina pectoris (Chronic) Rash (Chronic) Osteopenia (Chronic) Hypertriglyceridemia (Chronic) Dysuria (Chronic) Decreased renal function (Chronic) Generalized weakness (Chronic) UTI (urinary tract infection) (Chronic) Lactic acidosis (Chronic) Severe sepsis with acute organ dysfunction due to Gram negative bacteria (Chronic) UTI (urinary tract infection) (Chronic) Chronic atrial fibrillation with RVR (Chronic) Chest pain not due to acute coronary syndrome (Chronic) Hypertension, essential (Chronic) JUANJO-inhibitor cough (Chronic) Epistaxis (Chronic) Encounter for removal of nasal packing (Chronic) Laceration of right temporomandibular area without foreign body (Chronic) Laceration (Chronic) Encounter for wound re-check (Chronic) Medical History (Updated 10/18/22 @ 06:44 by Eben Waite MD) JUANJO-inhibitor cough Anemia Arthritis of shoulder Atherosclerosis of coronary artery of [place] heart with angina pectoris Atrial fibrillation Back pain Chest pain not due to acute coronary syndrome Chronic atrial fibrillation with RVR Decreased renal function Degenerative joint disease of shoulder Dyspnea Dysuria Encounter for removal of nasal packing Encounter for wound re-check Epistaxis Generalized weakness GERD (gastroesophageal reflux disease) Hemorrhoid History of basal cell carcinoma Hypertension, essential Hypertriglyceridemia Incontinence Laceration Laceration of right temporomandibular area without foreign body Lactic acidosis Leg cramps Malaise Memory loss Myalgia Osteopenia Pain of cervical spine Rash Severe sepsis with acute organ dysfunction due to Gram negative bacteria Subdural hematoma Syncope UTI (urinary tract infection) UTI (urinary tract infection) Surgical History History of basal cell carcinoma (BCC) excision (~2007) History of cholecystectomy (~1979) History of gastric surgery (~1933) History of hysterectomy (~1972) History of knee surgery (~2000) Right knee replacement. History of surgery leg Family History Son Diabetes Cancer Daughter Breast cancer Family/Other Dementia Osteoporosis Social History marital status: occupational status: retired other: Children-5 smoking status: Never smoker alcohol intake frequency: does not drink substance use type: does not use MEDS/ALLERGIES Home Medications and Allergies Home Medications Medication Instructions Recorded Confirmed Type omeprazole 20 mg tablet,delayed 20 mg PO DAILY 08/02/16 10/18/22 History release nitroglycerin 0.4 mg sublingual 0.4 mg SL Q5M PRN Chest Pain #15 05/20/18 10/18/22 Rx tablet tabs losartan 100 mg tablet 100 mg PO QDAY 10/01/19 10/18/22 History apixaban 5 mg tablet 2.5 mg PO BID 09/15/20 10/18/22 History hydrocodone 5 mg-acetaminophen 325 1 tab PO TID PRN pain #14 tabs 03/28/21 10/18/22 Rx mg tablet metoprolol succinate 50 mg 50 mg PO QDAY #90 tabs 04/01/21 10/18/22 Rx tablet,extended release 24 hr torsemide 10 mg tablet 10 mg PO QDAY #90 tabs 04/01/21 10/18/22 Rx hydrocodone 5 mg-acetaminophen 325 1 tab PO TID PRN pain #9 tabs 01/18/22 10/18/22 Rx mg tablet sulfamethoxazole 800 1 tab PO BID #10 tabs 05/27/22 10/18/22 Rx mg-trimethoprim 160 mg tablet (Bactrim DS) sulfamethoxazole 800 2 tab PO Q12H 7 days #28 tabs 10/13/22 10/18/22 Rx mg-trimethoprim 160 mg tablet (Bactrim DS) Allergies Allergy/AdvReac Type Severity Reaction Status Date / Time ampicillin AdvReac Mild ITCHING Verified 10/18/22 06:38 Cephalosporins AdvReac Mild Itching Verified 10/18/22 06:38 EXAM Constitutional Vitals: Temp Pulse Resp BP Pulse Ox O2 Del Method 98.4 F 60 18 125/47 100 Room Air 10/18/22 12:13 10/18/22 12:13 10/18/22 12:13 10/18/22 12:13 10/18/22 12:13 10/18/22 12:13 General appearance: average body habitus Head Head exam: Present normal inspection and normocephalic; Absent atraumatic Additional comments: Scalp hematoma and laceration present Eye Eye exam: Present EOMI, normal appearance and PERRL; Absent conjunctival injection ENT ENT exam: Present normal exam; Absent mucous membranes dry Neck Neck exam: Present full ROM; Absent lymphadenopathy Respiratory Respiratory exam: Present normal respiratory exam and CTAB; Absent decreased breath sounds, respiratory distress or wheezes Cardiovascular Cardiovascular exam: Present normal rate and rhythm and RRR; Absent JVD GI/Abdominal GI/Abdominal exam: Present normal bowel sounds and soft; Absent diminished bowel sounds, distended, guarding, mass, rebound or tenderness Neurological Exam Neurological exam: Present alert, CN II-XII intact and oriented X3 Psychiatric Psychiatric exam: Present normal affect and normal mood Skin Skin exam: Present intact and warm; Absent erythema, pallor, petechiae or rash DATA Data Completed and Pending Labs: Labs from last 24 hours 10/18/22 10/18/22 10/17/22 08:03 00:41 22:20 WBC RBC Hgb Hct POC Hct 22.0 L MCV MCH MCHC RDW Plt Count MPV Immature Gran % (Auto) Neut % (Auto) Lymph % (Auto) [place] % (Auto) Eos % (Auto) Baso % (Auto) Lymph # (Auto) [place] # (Auto) Eos # (Auto) Baso # (Auto) Immature Gran # Absolute Neutrophils POC VBG pH POC VBG pCO2 at Temp POC VBG pO2 POC VBG HCO3 POC VBG Total CO2 POC Venous O2 Sat POC VBG Base Excess VBG Lactic Acid POC Sodium 135 Sodium 134 POC Potassium 4.5 Potassium 4.5 POC Chloride 102 Chloride 101 Carbon Dioxide 21 L POC Total CO2 22.0 Anion Gap 12.0 POC BUN 54 H BUN 52 H Creatinine 3.5 H POC Creatinine 4.1 H GFR Calculation 11 Glucose 81 POC Glucose 94 Calcium 8.4 L POC WB Ioniz Calcium 1.12 L POC Troponin I 0.02 10/17/22 10/17/22 10/17/22 19:49 19:48 19:45 WBC 10.2 RBC 2.62 L Hgb 7.9 L Hct 23.7 L POC Hct 26.0 L MCV 90.5 MCH 30.2 MCHC 33.3 RDW 18.2 H Plt Count 636 H MPV 10.1 Immature Gran % (Auto) 1.9 H Neut % (Auto) 73.0 Lymph % (Auto) 15.1 L [place] % (Auto) 8.0 Eos % (Auto) 1.6 Baso % (Auto) 0.4 Lymph # (Auto) 1.53 [place] # (Auto) 0.81 Eos # (Auto) 0.16 Baso # (Auto) 0.04 Immature Gran # 0.19 H Absolute Neutrophils 7.43 POC VBG pH 7.40 POC VBG pCO2 at Temp 37.3 L POC VBG pO2 29 POC VBG HCO3 23.3 L POC VBG Total CO2 24.0 L POC Venous O2 Sat 56.0 POC VBG Base Excess -1.0 VBG Lactic Acid 1.1 POC Sodium 133 Sodium POC Potassium 4.9 Potassium POC Chloride 99 Chloride Carbon Dioxide POC Total CO2 24.0 Anion Gap POC BUN 59 H BUN Creatinine POC Creatinine 4.2 H GFR Calculation Glucose POC Glucose 108 H Calcium POC WB Ioniz Calcium 1.13 L POC Troponin I 10/17/22 19:43 WBC RBC Hgb Hct POC Hct MCV MCH MCHC RDW Plt Count MPV Immature Gran % (Auto) Neut % (Auto) Lymph % (Auto) [place] % (Auto) Eos % (Auto) Baso % (Auto) Lymph # (Auto) [place] # (Auto) Eos # (Auto) Baso # (Auto) Immature Gran # Absolute Neutrophils POC VBG pH POC VBG pCO2 at Temp POC VBG pO2 POC VBG HCO3 POC VBG Total CO2 POC Venous O2 Sat POC VBG Base Excess VBG Lactic Acid POC Sodium Sodium POC Potassium Potassium POC Chloride Chloride Carbon Dioxide POC Total CO2 Anion Gap POC BUN BUN Creatinine POC Creatinine GFR Calculation Glucose POC Glucose Calcium POC WB Ioniz Calcium POC Troponin I 0.04 A/P Assessment and plan (1) Acute renal failure with acute tubular necrosis superimposed on stage 3b chronic kidney disease: Status: Acute (2) Anemia: Status: Acute Qualifiers: Anemia type: unspecified type Qualified Code(s): D64.9 - Anemia, u nspecified (3) Acute dehydration: Status: Acute (4) Traumatic hematoma of forehead: Status: Acute Qualifiers: Encounter type: initial encounter Qualified Code(s): S00.83XA - Contusion of other part of head, initial encounter (5) Atrial fibrillation: Status: Chronic Qualifiers: Atrial fibrillation type: longstanding persistent Qualified Code(s): I48.11 - Longstanding persistent atrial fibrillation Narrative A/P Narrative: The patient's chest pain was likely in the setting of anemia. Her hemoglobin was 7.9 and she will be transfused 1 unit of packed red blood cells. The patien t's Eliquis will be held. Further discussion regarding anticoagulation would be beneficial with her family doctor. In terms of patient's WILLIE, this is likely multifactorial in etiology in the setting of hypotension, losartan, and Bactrim. The patient's torsemide will also be held. We will resuscitate her with IV fluids and monitor serial BMP. At this point, goals of care would be beneficial as the patient discussed comfort oriented care this morning and declined aggressive cardiac work-up at [facility] recently however wants to remain a full code. Time Spent With Patient Time: Total time spent is greater than 50% in coordination of care (as documented) at patient's floor/unit and/or counseling patient: Initial: Total time with patient: 75 - 90 minutes
[2022-10-18] MEDS: 0.9 % SODIUM CHLORIDE 10 ML SYRINGE IV SCH ×2 (13:51→22:06)
[2022-10-18] MEDS ORDERED: MELATONIN 3 MG TABLET PO PRN (21:35)
[2022-10-18] MEDS: SENNOSIDES 1 TABLET PO SCH (22:05)
[2022-10-19] MEDS: 0.9 % SODIUM CHLORIDE 1,000 ML IV SCH ×2 (03:26→09:09)
[2022-10-19] MEDS: 0.9 % SODIUM CHLORIDE 10 ML SYRINGE IV SCH ×3 (04:24→21:01)
[2022-10-19 07:39] LABS: Basophils # (Auto) 0.04 K/mcL (0.00-0.30); Basophils % (Auto) 0.3 % (0.0-2.0); Eosinophils # (Auto) 0.06 K/mcL (0.00-0.70); Eosinophils % (Auto) 0.5 % (0.0-7.0); Hematocrit 26.8 % (34.1-44.9); Hemoglobin 8.7 g/dL (11.2-15.7); Lymphocytes # (Auto) 0.68 K/mcL (1.50-4.80); Lymphocytes % (Auto) 5.4 % (15.5-49.0); Mean Cell Volume 91.5 fL (80.0-100.0); Mean Corpuscular HGB Conc 32.5 g/dL (31.0-36.0); Mean Platelet Volume 9.7 fL (8.8-12.5); Monocytes # (Auto) 0.67 K/mcL (0.10-0.90); Monocytes % (Auto) 5.4 % (1.0-12.0); Neutrophils % (Auto) 87.3 % (38.0-78.0); Platelet Count 560 K/mcL (140-440); RBC 2.93 M/mcL (3.59-5.38); Red Cell Distribution Width 17.5 % (11.5-14.5); WBC 12.5 K/mcL (4.5-11.0)
[2022-10-19 08:04] LABS: Blood Urea Nitrogen 45 mg/dL (8-23); Calcium 8.5 mg/dL (8.6-10.4); Carbon Dioxide 19 mmol/L (22-30); Chloride 102 mmol/L (96-108); Glomerular Filtration Rate 14; Glucose 128 mg/dL (70-105)
--- NOTE | 2022-10-19 08:15 | Nephrology Progress Note ---
SUBJECTIVE Subjective Patient information: Note initiated : 10/19/22 at 8:13 am Patient: Natalee Rooney 87 y/o F admitted on 10/18/22 for chest pain. Chief Complaint: Weakness Pertinent ROS: Weakness Fox catheter No edema Constitutional Vitals: Vital Signs Temp Pulse Resp BP Pulse Ox O2 Del Method 97.6 F 73 20 129/58 96 Room Air 10/19/22 03:58 10/19/22 03:58 10/19/22 03:58 10/19/22 03:58 10/19/22 03:58 10/19/22 03:58 Period Temp Pulse Resp BP Sys/Edwards Pulse Ox O2 Del Method O2 Flow Rate Last 24 Hr 97.6 F-98.5 F 58-73 17-20 92-129/47-78 94-100 Room Air-Room Air Intake and Output 10/18/22 10/19/22 10/19/22 19:59 03:59 11:59 Intake Total 1809 1000 Output Total 100 152 Balance 1709 848 Weight 155 lb 8 oz Intake & Output: Intake & Output 10/18/22 10/19/22 10/19/22 19:59 03:59 11:59 Intake Total 1809 1000 Output Total 100 152 Balance 1709 848 Weight 155 lb 8 oz Intake: IV 1000 1000 Sodium Chloride 0.9% 1,000 ml @ 1000 1000 100 mls/hr IV .Q10H [facility] Rx#: [id number] Oral 540 0 Blood Product 269 Output: Urine Catheter Amount 150 Void Amount 100 0 # of times incontinent of urine 2 Other: Meal Dinner Percent of Meal Consumed 75% Feeding Ability Independent Urine Appearance Clear Clear Urine Color Yellow Yellow # Voids 0 # Bowel Movements 0 # of times incontinent of 0 Bowels General appearance: cooperative and no acute distress Eye Eye exam: Present normal appearance ENT ENT exam: Present mucous membranes moist Respiratory Respiratory exam: Absent respiratory distress Cardiovascular Cardiovascular exam: Present normal rate and rhythm GI/Abdominal GI/Abdominal exam: Present soft; Absent tenderness Extremities Exam Extremities exam: Absent joint swelling or pedal edema Neurological Exam Neurological exam: Present alert and altered Psychiatric Psychiatric exam: Present normal affect and normal mood Skin Skin exam: Present warm; Absent rash Additional comments: Ecchymosis over forehead A/P Assessment and plan (1) Acute renal failure with acute tubular necrosis superimposed on stage 3b chronic kidney disease: Assessment and plan: Natalee Rooney is an 87-year-old female with chronic kidney disease stage 3b, coronary artery disease s/p stents, atrial fibrillation on chronic anticoa gulation, diabetes mellitus type 2 and hypertension admitted on 10/18/22. She initially presented to [facility] ED for a forehead lesion on 10/13/22 and prescribed Bactrim for UTI. She presented to ED again for chest pain on 10/07/22 and was diagnosed with WILLIE. Nephrology consultation was requested for acute kidney injury. Acute kidney injury, likely acute tubular necrosis associated with a new prescr iption of Bactrim on Losartan and Torsemide on chronic kidney disease stage 3b, present on arrival. There is no recent history of IV contrast administration or NSAID use. Intravascular volume depletion considered. Work up: CT Chest, Abdomen and Pelvis without contrast on 10/18/22: A specific cause for anemia is not apparent. Decreased erythropoietin due to bilateral renal atrophy may be a factor if the anemia is normocytic. Otherwise, GI blood loss would be a common cause. Consider tagged red blood cell study. Moderate stool impaction within the rectum. Osteoporosis with mild chronic compression fractures of the L1 and L2 vertebral bodies. Mild pancreatic atrophy. Moderate cardiomegaly with heavy calcific plaque in the coronary arteries. Progress: Serum creatinine decreased from 3.5 to 2.8 in the past 24 hours. Baseline serum creatinine 1.1 on 10/13/22. Urine output: 300 ml reported in the past 24 hours. Metabolic acidosis. Fluid overload. I/O: +2.5L since admit. No uremic symptoms. Recommendations/Plan: No acute hemodialysis need. Monitor BMP and urine output. Avoid NSAIDs, nephrotoxic medications and IV contrast. Hold ARB, diuretics. Discharge plan: Return home with son on hospice. Status: Acute Time Spent With Patient Time: Total time spent is greater than 50% in coordination of care (as documented) at patient's floor/unit and/or counseling patient:
[2022-10-19] MEDS: DOCUSATE SODIUM 100 MG CAPSULE PO SCH ×2 (08:33→21:00)
[2022-10-19] MEDS: LACTATED RINGERS 1,000 ML IV SCH (08:33)
[2022-10-19] MEDS ORDERED: FLU VACC QS2022-23(6MOS UP)/PF 60 MCG/0.5 ML SYRINGE IM ONE (10:00)
--- NOTE | 2022-10-19 12:31 | Internal Med Progress Note ---
SUBJECTIVE Subjective Patient information: Note initiated : 10/19/22 at 12:29 pm Service Date, if different from initiated Date: [] Patient: Natalee Rooney 87 y/o F admitted on 10/18/22 for chest pain. Chief Complaint: [Chest pain] Principal diagnosis: Blood loss anemia, WILLIE, hypotension Interval history: The patient was resting comfortably in bed while eating breakfast. Her son was present at the bedside to discuss plan of care. Constitutional Vitals: Vital Signs Temp Pulse Resp BP Pulse Ox O2 Del Method 98.1 F 75 16 133/97 95 Room Air 10/19/22 08:00 10/19/22 08:00 10/19/22 08:00 10/19/22 08:00 10/19/22 08:00 10/19/22 08:00 Period Temp Pulse Resp BP Sys/Edwards Pulse Ox O2 Del Method O2 Flow Rate Last 24 Hr 97.6 F-98.5 F 60-75 16-20 92-133/50-97 94-99 Room Air-Room Air Intake and Output 10/19/22 10/19/22 10/19/22 03:59 11:59 19:59 Intake Total 1000 725 Output Total 152 Balance 848 725 Weight 70.534 kg Patient Weight 10/20/22 03:59 Weight 70.534 kg Intake & Output: Intake & Output 10/19/22 10/19/22 10/19/22 03:59 11:59 19:59 Intake Total 1000 725 Output Total 152 Balance 848 725 Weight 70.534 kg Intake: IV 1000 725 Sodium Chloride 0.9% 1,000 ml @ 1000 507 100 mls/hr IV .Q10H [facility] Rx#: [id number] Lactated Ringers 1,000 ml @ 75 218 mls/hr IV .[id number] [facility] Rx#: [id number] Oral 0 Output: Urine Catheter Amount 150 Void Amount 0 # of times incontinent of urine 2 Other: Urine Appearance Clear Urine Color Yellow # Voids 0 # Bowel Movements 0 # of times incontinent of 0 Bowels General appearance: cooperative and no acute distress Eye Eye exam: Present normal appearance ENT ENT exam: Present mucous membranes moist Respiratory Respiratory exam: Absent respiratory distress Cardiovascular Cardiovascular exam: Present normal rate and rhythm GI/Abdominal GI/Abdominal exam: Present soft; Absent tenderness Extremities Exam Extremities exam: Absent joint swelling or pedal edema Neurological Exam Neurological exam: Present alert and altered Psychiatric Psychiatric exam: Present normal affect and normal mood Skin Skin exam: Present warm; Absent rash Additional comments: Ecchymosis over forehead OBJ DATA Labs 10/19/22 05:19 10/19/22 05:19 Labs: Abnormal Lab Results 10/19/22 10/19/22 10/18/22 05:19 05:19 08:03 WBC 12.5 H RBC 2.93 L Hgb 8.7 L Hct 26.8 L POC Hct RDW 17.5 H Plt Count 560 H Immature Gran % (Auto) 1.1 H Neut % (Auto) 87.3 H Lymph % (Auto) 5.4 L Lymph # (Auto) 0.68 L Immature Gran # 0.14 H Absolute Neutrophils 10.91 H POC VBG pCO2 at Temp POC VBG HCO3 POC VBG Total CO2 Carbon Dioxide 19 L 21 L POC BUN BUN 45 H 52 H Creatinine 2.8 H 3.5 H POC Creatinine Glucose 128 H POC Glucose Calcium 8.5 L 8.4 L POC WB Ioniz Calcium 10/18/22 10/17/22 10/17/22 00:41 19:49 19:48 WBC RBC 2.62 L Hgb 7.9 L Hct 23.7 L POC Hct 22.0 L RDW 18.2 H Plt Count 636 H Immature Gran % (Auto) 1.9 H Neut % (Auto) Lymph % (Auto) 15.1 L Lymph # (Auto) Immature Gran # 0.19 H Absolute Neutrophils POC VBG pCO2 at Temp 37.3 L POC VBG HCO3 23.3 L POC VBG Total CO2 24.0 L Carbon Dioxide POC BUN 54 H BUN Creatinine POC Creatinine 4.1 H Glucose POC Glucose Calcium POC WB Ioniz Calcium 1.12 L 10/17/22 19:45 WBC RBC Hgb Hct POC Hct 26.0 L RDW Plt Count Immature Gran % (Auto) Neut % (Auto) Lymph % (Auto) Lymph # (Auto) Immature Gran # Absolute Neutrophils POC VBG pCO2 at Temp POC VBG HCO3 POC VBG Total CO2 Carbon Dioxide POC BUN 59 H BUN Creatinine POC Creatinine 4.2 H Glucose POC Glucose 108 H Calcium POC WB Ioniz Calcium 1.13 L Meds: Medications Acetaminophen (Acetaminophen 325 Mg Tablet) 650 mg PO Q6HP PRN; Protocol PRN Reason: Per Pain Protocol/Fever > 101 Last Admin: 10/18/22 04:05 Dose: 650 mg Acetaminophen (Acetaminophen 325 Mg Tablet) 650 mg PO Q6HP PRN; Protocol PRN Reason: Per Pain Protocol/Fever > 101 Hydrocodone Bitart/Acetaminophen (Hydrocodone/Apap 5/325mg Tablet) 1 tab PO Q4HP PRN; Protocol PRN Reason: Per Pain Protocol Docusate Sodium (Docusate Sodium 100 Mg Capsule) 100 mg PO BID [facility] Last Admin: 10/19/22 08:33 Dose: 100 mg Lactated Ringer's (Lactated Ringers) 1,000 mls @ 75 mls/hr IV .[id number] [facility] Last Infusion: 10/19/22 11:27 Dose: 0 mls/hr Melatonin (Melatonin 3 Mg Tablet) 6 mg PO HSP PRN PRN Reason: Insomnia Last Admin: 10/18/22 22:05 Dose: 6 mg Ondansetron HCl (Ondansetron 4 Mg/2 Ml Vial) 4 mg IV Q4HP PRN; Protocol PRN Reason: Nausea And Vomiting Ondansetron HCl (Ondansetron 4 Mg/2 Ml Vial) 4 mg IV Q6HP PRN PRN Reason: Nausea And Vomiting Promethazine HCl (Promethazine 25 Mg/Ml Vial) 12.5 mg IM Q6HP PRN; Protocol PRN Reason: Nausea And Vomiting Senna (Sennosides 1 Tablet) 2 tab PO HS [facility] Last Admin: 10/18/22 22:05 Dose: 2 tab Sodium Chloride (0.9 % Sodium Chloride 10 Ml Syringe) 10 ml IV Q8 [facility] Last Admin: 10/19/22 04:24 Dose: Not Given A/P Assessment and plan (1) Acute renal failure with acute tubular necrosis superimposed on stage 3b chronic kidney disease: Status: Acute (2) Anemia: Status: Acute Qualifiers: Anemia type: unspecified type Qualified Code(s): D64.9 - Anemia, unspecified (3) Acute dehydration: Status: Acute (4) Traumatic hematoma of forehead: Status: Acute Qualifiers: Encounter type: initial encounter Qualified Code(s): S00.83XA - Contusion of other part of head, initial encounter (5) Atrial fibrillation: Status: Chronic Qualifiers: Atrial fibrillation type: longstanding persistent Qualified Code(s): I48.11 - Longstanding persistent atrial fibrillation Narrative A/P Narrative: The patient's chest pain was likely in the setting of anemia. Her hemoglobin was 7.9 and she will be transfused 1 unit of packed red blood cells. The carlos enrique dos santos's Eliquis will be held. Further discussion regarding anticoagulation would be beneficial with her family doctor. In terms of patient's WILLIE, this is likely multifactorial in etiology in the setting of hypotension, losartan, and Bactrim. The patient's torsemide will also be held. We will resuscitate her with IV fluids and monitor serial BMP. At this point, goals of care would be beneficial as the patient discussed comfort oriented care this morning and declined aggressive cardiac work-up at [facility] recently however wants to remain a full code. 10/19: The patient's wound on her scalp is stable. There is no bleeding. Her H&H is improved to 8.7/26.8. Her creatinine is come down from 3.5-2.8. I have started IV fluids. Of note, hospice came to assess the patient. The patient a nd family would like to continue medical management and follow-up with hospice postdischarge at home. Time Spent With Patient Time: Total time spent is greater than 50% in coordination of care (as documented) at patient's floor/unit and/or counseling patient: Subsequent: Total time with patient: 25 - 34 minutes
[2022-10-19] MEDS: SENNOSIDES 1 TABLET PO SCH (21:00)
[2022-10-20] MEDS: LACTATED RINGERS 1,000 ML IV SCH ×2 (00:07→11:26)
[2022-10-20] MEDS: 0.9 % SODIUM CHLORIDE 10 ML SYRINGE IV SCH ×3 (05:31→20:57)
[2022-10-20 06:30] LABS: Basophils # (Auto) 0.05 K/mcL (0.00-0.30); Basophils % (Auto) 0.5 % (0.0-2.0); Eosinophils # (Auto) 0.04 K/mcL (0.00-0.70); Eosinophils % (Auto) 0.4 % (0.0-7.0); Hematocrit 29.5 % (34.1-44.9); Hemoglobin 9.8 g/dL (11.2-15.7); Lymphocytes # (Auto) 1.32 K/mcL (1.50-4.80); Lymphocytes % (Auto) 12.8 % (15.5-49.0); Mean Cell Volume 91.9 fL (80.0-100.0); Mean Corpuscular HGB Conc 33.2 g/dL (31.0-36.0); Mean Platelet Volume 10.1 fL (8.8-12.5); Monocytes # (Auto) 0.91 K/mcL (0.10-0.90); Monocytes % (Auto) 8.9 % (1.0-12.0); Neutrophils % (Auto) 75.8 % (38.0-78.0); Platelet Count 600 K/mcL (140-440); RBC 3.21 M/mcL (3.59-5.38); Red Cell Distribution Width 17.8 % (11.5-14.5); WBC 10.3 K/mcL (4.5-11.0)
[2022-10-20 06:37] LABS: Blood Urea Nitrogen 38 mg/dL (8-23); Calcium 8.8 mg/dL (8.6-10.4); Carbon Dioxide 18 mmol/L (22-30); Chloride 106 mmol/L (96-108); Glomerular Filtration Rate 18; Glucose 102 mg/dL (70-105)
--- NOTE | 2022-10-20 06:52 | Nephrology Progress Note ---
SUBJECTIVE Subjective Patient information: Note initiated : 10/20/22 at 6:50 am Patient: Natalee Rooney 87 y/o F admitted on 10/18/22 for chest pain. Chief Complaint: Weakness Principal diagnosis: Blood loss anemia, WILLIE, hypotension Pertinent ROS: Weakness Fox catheter Constitutional Vitals: Vital Signs Temp Pulse Resp BP Pulse Ox O2 Del Method 98.6 F 98 H 20 118/60 93 Room Air 10/20/22 03:38 10/20/22 03:38 10/20/22 03:38 10/20/22 03:38 10/20/22 03:38 10/20/22 03:38 Period Temp Pulse Resp BP Sys/Edwards Pulse Ox O2 Del Method O2 Flow Rate Last 24 Hr 98.0 F-98.6 F 71-100 16-20 102-135/52-97 93-95 Room Air-Room Air Intake and Output 10/19/22 10/20/22 10/20/22 19:59 03:59 11:59 Intake Total 480 360 Output Total 500 500 Balance -20 -140 Weight 158 lb 4 oz Intake & Output: Intake & Output 10/19/22 10/20/22 10/20/22 19:59 03:59 11:59 Intake Total 480 360 Output Total 500 500 Balance -20 -140 Weight 158 lb 4 oz Intake: IV 0 Lactated Ringers 1,000 ml @ 75 0 mls/hr IV .[id number] [facility] Rx#: [id number] Oral 480 360 Output: Void Amount 500 500 Other: Meal Lunch Percent of Meal Consumed 25% Urine Appearance Clear Urine Color Yellow Urine Odor Normal Stool Size Small Stool Color Brown Stool Consistency Soft General appearance: cooperative and no acute distress Head Head exam: Present normal inspection Eye Eye exam: Present normal appearance ENT ENT exam: Present mucous membranes moist Respiratory Respiratory exam: Absent respiratory distress Cardiovascular Cardiovascular exam: Present normal rate and rhythm GI/Abdominal GI/Abdominal exam: Present soft; Absent tenderness Extremities Exam Extremities exam: Absent joint swelling or pedal edema Neurological Exam Neurological exam: Present alert Psychiatric Psychiatric exam: Present normal affect and normal mood Skin Skin exam: Present warm; Absent rash A/P Assessment and plan (1) Acute renal failure with acute tubular necrosis superimposed on stage 3b chronic kidney disease: Assessment and plan: Natalee Rooney is an 87-year-old female with chronic kidney disease stage 3b, coronary artery disease s/p stents, atrial fibrillation on chronic anticoagulation, diabetes mellitus type 2 and hypertension admitted on 10/18/22. She initially presented to [facility] ED for a forehead lesion on 10/13/22 and prescribed Bactrim for UTI. She presented to ED again for chest pain on 10/07/22 and was diagnosed with WILLIE. Nephrology consultation was requested for acute kidney injury. Acute kidney injury, likely acute tubular necrosis associated with a new prescription of Bactrim on Losartan and Torsemide on chronic kidney disease stage 3b, present on arrival. There is no recent history of IV contrast administration or NSAID use. Intravascular volume depletion considered. Work up: CT Chest, Abdomen and Pelvis without contrast on 10/18/22: A specific cause for anemia is not apparent. Decreased erythropoietin due to bilateral renal atrophy may be a factor if the anemia is normocytic. Otherwise, GI blood loss would be a common cause. Consider tagged red blood cell study. Moderate stool impaction within the rectum. Osteoporosis with mild chronic compression fractures of the L1 and L2 vertebral bodies. Mild pancreatic atrophy. Moderate cardiomegaly with heavy calcific plaque in the coronary arteries. Progress: Serum creatinine decreased from 2.8 to 2.3 in the past 24 hours. Baseline serum creatinine 1.1 on 10/13/22. Urine output: 1,000 ml reported in the past 24 hours. Metabolic acidosis. Fluid overload. I/O: +3.0L since admit. No uremic symptoms. Recommendations/Plan: No acute hemodialysis need. Monitor BMP and urine output. Avoid NSAIDs, nephrotoxic medications and IV contrast. Discharge plan: Family is planning return home with son on hospice. Status: Acute Time Spent With Patient Time: Total time spent is greater than 50% in coordination of care (as documented) at patient's floor/unit and/or counseling patient:
[2022-10-20] MEDS: DOCUSATE SODIUM 100 MG CAPSULE PO SCH ×2 (08:52→20:56)
--- NOTE | 2022-10-20 11:49 | Internal Med Progress Note ---
SUBJECTIVE Subjective Patient information: Note initiated : 10/20/22 at 11:47 am Service Date, if different from initiated Date: [] Patient: Natalee Rooney 87 y/o F admitted on 10/18/22 for chest pain. Chief Complaint: [] Principal diagnosis: Blood loss anemia, WILLIE, hypotension Interval history: The patient was resting comfortably in bed. Discussed plan of care with case management and social work. Constitutional Vitals: Vital Signs Temp Pulse Resp BP Pulse Ox O2 Del Method 98.6 F 120 H 21 105/67 95 Room Air 10/20/22 08:14 10/20/22 08:14 10/20/22 09:17 10/20/22 08:14 10/20/22 08:14 10/20/22 09:17 Period Temp Pulse Resp BP Sys/Edwards Pulse Ox O2 Del Method O2 Flow Rate Last 24 Hr 98.0 F-98.6 F 71-120 16-21 102-135/52-69 93-95 Room Air-Room Air Intake and Output 10/19/22 10/20/22 10/20/22 19:59 03:59 11:59 Intake Total 480 360 849 Output Total 500 500 Balance -20 -140 849 Weight 71.781 kg Intake & Output: Intake & Output 10/19/22 10/20/22 10/20/22 19:59 03:59 11:59 Intake Total 480 360 849 Output Total 500 500 Balance -20 -140 849 Weight 71.781 kg Intake: IV 0 849 Lactated Ringers 1,000 ml @ 75 0 849 mls/hr IV .[id number] [facility] Rx#: [id number] Oral 480 360 Output: Void Amount 500 500 Other: Meal Lunch Percent of Meal Consumed 25% Urine Appearance Clear Urine Color Yellow Urine Odor Normal Stool Size Small Stool Color Brown Stool Consistency Soft Head Head exam: Present atraumatic and normal inspection Eye Eye exam: Present normal appearance ENT ENT exam: Present mucous membranes moist, normal exam and normal external ear exam Neck Neck exam: Present normal inspection Respiratory Respiratory exam: Present normal respiratory exam Cardiovascular Cardiovascular exam: Present normal rate and rhythm GI/Abdominal GI/Abdominal exam: Present normal bowel sounds Back Exam Back exam: Present normal inspection Neurological Exam Neurological exam: Present alert and oriented X3 Skin Skin exam: Present intact and warm OBJ DATA Labs 10/20/22 05:43 10/20/22 05:43 Labs: Abnormal Lab Results 10/20/22 10/20/22 10/19/22 05:43 05:43 05:19 WBC RBC 3.21 L Hgb 9.8 L Hct 29.5 L POC Hct RDW 17.8 H Plt Count 600 H Immature Gran % (Auto) 1.6 H Neut % (Auto) Lymph % (Auto) 12.8 L Lymph # (Auto) 1.32 L Orange # (Auto) 0.91 H Immature Gran # 0.16 H Absolute Neutrophils POC VBG pCO2 at Temp POC VBG HCO3 POC VBG Total CO2 Carbon Dioxide 18 L 19 L POC BUN BUN 38 H 45 H Creatinine 2.3 H 2.8 H POC Creatinine Glucose 128 H POC Glucose Calcium 8.5 L POC WB Ioniz Calcium 10/19/22 10/18/22 10/18/22 05:19 08:03 00:41 WBC 12.5 H RBC 2.93 L Hgb 8.7 L Hct 26.8 L POC Hct 22.0 L RDW 17.5 H Plt Count 560 H Immature Gran % (Auto) 1.1 H Neut % (Auto) 87.3 H Lymph % (Auto) 5.4 L Lymph # (Auto) 0.68 L Orange # (Auto) Immature Gran # 0.14 H Absolute Neutrophils 10.91 H POC VBG pCO2 at Temp POC VBG HCO3 POC VBG Total CO2 Carbon Dioxide 21 L POC BUN 54 H BUN 52 H Creatinine 3.5 H POC Creatinine 4.1 H Glucose POC Glucose Calcium 8.4 L POC WB Ioniz Calcium 1.12 L 10/17/22 10/17/22 10/17/22 19:49 19:48 19:45 WBC RBC 2.62 L Hgb 7.9 L Hct 23.7 L POC Hct 26.0 L RDW 18.2 H Plt Count 636 H Immature Gran % (Auto) 1.9 H Neut % (Auto) Lymph % (Auto) 15.1 L Lymph # (Auto) Orange # (Auto) Immature Gran # 0.19 H Absolute Neutrophils POC VBG pCO2 at Temp 37.3 L POC VBG HCO3 23.3 L POC VBG Total CO2 24.0 L Carbon Dioxide POC BUN 59 H BUN Creatinine POC Creatinine 4.2 H Glucose POC Glucose 108 H Calcium POC WB Ioniz Calcium 1.13 L Meds: Medications Acetaminophen (Acetaminophen 325 Mg Tablet) 650 mg PO Q6HP PRN; Protocol PRN Reason: Per Pain Protocol/Fever > 101 Last Admin: 10/18/22 04:05 Dose: 650 mg Acetaminophen (Acetaminophen 325 Mg Tablet) 650 mg PO Q6HP PRN; Protocol PRN Reason: Per Pain Protocol/Fever > 101 Hydrocodone Bitart/Acetaminophen (Hydrocodone/Apap 5/325mg Tablet) 1 tab PO Q4HP PRN; Protocol PRN Reason: Per Pain Protocol Docusate Sodium (Docusate Sodium 100 Mg Capsule) 100 mg PO BID [facility] Last Admin: 10/20/22 08:52 Dose: 100 mg Lactated Ringer's (Lactated Ringers) 1,000 mls @ 75 mls/hr IV .[id number] [facility] Last Admin: 10/20/22 11:26 Dose: 75 mls/hr Melatonin (Melatonin 3 Mg Tablet) 6 mg PO HSP PRN PRN Reason: Insomnia Last Admin: 10/18/22 22:05 Dose: 6 mg Ondansetron HCl (Ondansetron 4 Mg/2 Ml Vial) 4 mg IV Q4HP PRN; Protocol PRN Reason: Nausea And Vomiting Ondansetron HCl (Ondansetron 4 Mg/2 Ml Vial) 4 mg IV Q6HP PRN PRN Reason: Nausea And Vomiting Promethazine HCl (Promethazine 25 Mg/Ml Vial) 12.5 mg IM Q6HP PRN; Protocol PRN Reason: Nausea And Vomiting Senna (Sennosides 1 Tablet) 2 tab PO HS [facility] Last Admin: 10/19/22 21:00 Dose: 2 tab Sodium Chloride (0.9 % Sodium Chloride 10 Ml Syringe) 10 ml IV Q8 [facility] Last Admin: 10/20/22 05:31 Dose: Not Given A/P Assessment and plan (1) Acute renal failure with acute tubular necrosis superimposed on stage 3b chronic kidney disease: Status: Acute (2) Anemia: Status: Acute Qualifiers: Anemia type: unspecified type Qualified Code(s): D64.9 - Anemia, unspecified (3) Acute dehydration: Status: Acute (4) Traumatic hematoma of forehead: Status: Acute Qualifiers: Encounter type: initial encounter Qualified Code(s): S00.83XA - Contusion of other part of head, initial encounter (5) Atrial fibrillation: Status: Chronic Qualifiers: Atrial fibrillation type: longstanding persistent Qualified Code(s): I48.11 - Longstanding persistent atrial fibrillation Narrative A/P Narrative: The patient's chest pain was likely in the setting of anemia. Her hemoglobin was 7.9 and she will be transfused 1 unit of packed red blood cells. The patient's Eliquis will be held. Further discussion regarding anticoagulation would be beneficial with her family doctor. In terms of patient's WILLIE, this is likely multifactorial in etiology in the setting of hypotension, losartan, and Bactrim. The patient's torsemide will also be held. We will resuscitate her with IV fluids and monitor serial BMP. At this point, goals of care would be beneficial as the patient discussed comfort oriented care this morning and declined aggressive cardiac work-up at [facility] however wants to remain a full code. 10/19: The patient's wound on her scalp is stable. There is no bleeding. Her H&H is improved to 8.7/26.8. Her creatinine is come down from 3.5-2.8. I have started IV fluids. Of note, hospice came to assess the patient. The patient and family would like to continue medical management and follow-up with hospice postdischarge at home. 10/19: The patient's blood counts remained stable as her H&H is 9.8/29.5. Creatinine has come down to 2.3. She will likely be able to go home with yamilka cherry tomorrow if the family is in agreement. Social work will continue to work on this. Time Spent With Patient Time: Total time spent is greater than 50% in coordination of care (as documented) at patient's floor/unit and/or counseling patient: Subsequent: Total time with patient: 25 - 34 minutes
[2022-10-20] MEDS: SENNOSIDES 1 TABLET PO SCH (20:56)
[2022-10-21] MEDS: LACTATED RINGERS 1,000 ML IV SCH ×2 (01:07→14:44)
[2022-10-21] MEDS: 0.9 % SODIUM CHLORIDE 10 ML SYRINGE IV SCH ×3 (05:37→22:10)
[2022-10-21 07:20] LABS: Blood Urea Nitrogen 34 mg/dL (8-23); Calcium 8.9 mg/dL (8.6-10.4); Carbon Dioxide 18 mmol/L (22-30); Chloride 105 mmol/L (96-108); Glomerular Filtration Rate 23; Glucose 106 mg/dL (70-105)
--- NOTE | 2022-10-21 07:42 | Nephrology Progress Note ---
SUBJECTIVE Subjective Patient information: Note initiated : 10/21/22 at 7:40 am Patient: Natalee Rooney 87 y/o F admitted on 10/18/22 for chest pain. Chief Complaint: Weakness Principal diagnosis: Blood loss anemia, WILLIE, hypotension Pertinent ROS: Weakness Confusion Constitutional Vitals: Vital Signs Temp Pulse Resp BP Pulse Ox O2 Del Method 98.2 F 100 H 20 106/66 94 Room Air 10/21/22 03:42 10/21/22 03:42 10/21/22 03:42 10/21/22 03:42 10/21/22 03:42 10/21/22 03:42 Period Temp Pulse Resp BP Sys/Edwards Pulse Ox O2 Del Method O2 Flow Rate Last 24 Hr 97.9 F-98.6 F 75-120 16-22 102-129/66-97 91-100 Room Air-Room Air Intake and Output 10/20/22 10/21/22 10/21/22 19:59 03:59 11:59 Intake Total 1240 Output Total 1 350 200 Balance -1 890 -200 Weight 158 lb 2 oz Intake & Output: Intake & Output 10/20/22 10/21/22 10/21/22 19:59 03:59 11:59 Intake Total 1240 Output Total 1 350 200 Balance -1 890 -200 Weight 158 lb 2 oz Intake: IV 1000 Lactated Ringers 1,000 ml @ 75 1000 mls/hr IV .[id number] [facility] Rx#: [id number] Oral 240 Output: Void Amount 350 200 # of times incontinent of urine 1 Other: Urine Appearance Clear Clear Urine Color Yellow Yellow Urine Odor Normal Normal Stool Size Large Stool Color Brown Stool Consistency Normal for Patient # Bowel Movements 1 General appearance: cooperative and no acute distress Head Head exam: Present normal inspection Eye Eye exam: Present normal appearance ENT ENT exam: Present mucous membranes moist Respiratory Respiratory exam: Absent respiratory distress Cardiovascular Cardiovascular exam: Present normal rate and rhythm GI/Abdominal GI/Abdominal exam: Present soft; Absent tenderness Extremities Exam Extremities exam: Absent joint swelling or pedal edema Neurological Exam Neurological exam: Present alert Psychiatric Psychiatric exam: Present normal affect and normal mood Skin Skin exam: Present warm; Absent rash A/P Assessment and plan (1) Acute renal failure with acute tubular necrosis superimposed on stage 3b chronic kidney disease: Assessment and plan: Natalee Rooney is an 87-year-old female with chronic kidney disease stage 3b, coronary artery disease s/p stents, atrial fibrillation on chronic anticoagulation, diabetes mellitus type 2 and hypertension admitted on 10/18/22. She initially presented to [facility] ED for a forehead lesion on 10/13/22 and prescribed Bactrim for UTI. She presented to ED again for chest pain on 10/07/22 and was diagnosed with WILLIE. Nephrology consultation was requested for acute kidney injury. Acute kidney injury, likely acute tubular necrosis associated with a new prescription of Bactrim on Losartan and Torsemide on chronic kidney disease stage 3b, present on arrival. There is no recent history of IV contrast administration or NSAID use. Intravascular volume depletion considered. Work up: CT Chest, Abdomen and Pelvis without contrast on 10/18/22: A specific cause for anemia is not apparent. Decreased erythropoietin due to bilateral renal atrophy may be a factor if the anemia is normocytic. Otherwise, GI blood loss would be a common cause. Consider tagged red blood cell study. Moderate stool impaction within the rectum. Osteoporosis with mild chronic compression fractures of the L1 and L2 vertebral bodies. Mild pancreatic atrophy. Moderate cardiomegaly with heavy calcific plaque in the coronary arteries. Progress: Serum creatinine decreased from 2.3 to 1.9 in the past 24 hours. Baseline serum creatinine 1.1 on 10/13/22. Urine output: 350 ml reported in the past 24 hours. Metabolic acidosis. No uremic symptoms. Recommendations/Plan: No acute hemodialysis need. Monitor BMP and urine output. Avoid NSAIDs, nephrotoxic medications and IV contrast. Discharge plan: Family is planning return home with son on hospice. Status: Acute Time Spent With Patient Time: Total time spent is greater than 50% in coordination of care (as documented) at patient's floor/unit and/or counseling patient:
[2022-10-21] MEDS: DOCUSATE SODIUM 100 MG CAPSULE PO SCH ×2 (09:08→20:57)
--- NOTE | 2022-10-21 10:16 | Internal Med Progress Note ---
SUBJECTIVE Subjective Patient information: Note initiated : 10/21/22 at 10:14 am Service Date, if different from initiated Date: [] Patient: Natalee Rooney 87 y/o F admitted on 10/18/22 for chest pain. Chief Complaint: [] Principal diagnosis: Blood loss anemia, WILLIE, hypotension Interval history: Concerns about delirium upon dementia yesterday. No focal deficits. Family no longer willing to take her home as they cannot look after her. Constitutional Vitals: Vital Signs Temp Pulse Resp BP Pulse Ox O2 Del Method 97.2 F 68 18 121/90 96 Room Air 10/21/22 08:15 10/21/22 08:15 10/21/22 08:15 10/21/22 08:15 10/21/22 08:15 10/21/22 08:15 Period Temp Pulse Resp BP Sys/Edwards Pulse Ox O2 Del Method O2 Flow Rate Last 24 Hr 97.2 F-98.2 F 68-100 16-22 102-129/66-97 91-100 Room Air-Room Air Intake and Output 10/20/22 10/21/22 10/21/22 19:59 03:59 11:59 Intake Total 1240 Output Total 1 350 200 Balance -1 890 -200 Weight 71.724 kg Intake & Output: Intake & Output 10/20/22 10/21/22 10/21/22 19:59 03:59 11:59 Intake Total 1240 Output Total 1 350 200 Balance -1 890 -200 Weight 71.724 kg Intake: IV 1000 Lactated Ringers 1,000 ml @ 75 1000 mls/hr IV .[id number] [facility] Rx#: [id number] Oral 240 Output: Void Amount 350 200 # of times incontinent of urine 1 Other: Urine Appearance Clear Clear Urine Color Yellow Yellow Urine Odor Normal Normal Stool Size Large Stool Color Brown Stool Consistency Normal for Patient # Bowel Movements 1 Head Head exam: Present atraumatic and normal inspection Eye Eye exam: Present normal appearance ENT ENT exam: Present mucous membranes moist, normal exam and normal external ear exam Neck Neck exam: Present normal inspection Respiratory Respiratory exam: Present normal respiratory exam Cardiovascular Cardiovascular exam: Present normal rate and rhythm GI/Abdominal GI/Abdominal exam: Present normal bowel sounds Back Exam Back exam: Present normal inspection Neurological Exam Neurological exam: Present alert Skin Skin exam: Present intact and warm OBJ DATA Labs 10/20/22 05:43 10/21/22 06:00 Labs: Abnormal Lab Results 10/21/22 10/20/22 10/20/22 06:00 05:43 05:43 WBC RBC 3.21 L Hgb 9.8 L Hct 29.5 L RDW 17.8 H Plt Count 600 H Immature Gran % (Auto) 1.6 H Neut % (Auto) Lymph % (Auto) 12.8 L Lymph # (Auto) 1.32 L [place] # (Auto) 0.91 H Immature Gran # 0.16 H Absolute Neutrophils Carbon Dioxide 18 L 18 L BUN 34 H 38 H Creatinine 1.9 H 2.3 H Glucose 106 H Calcium 10/19/22 10/19/22 05:19 05:19 WBC 12.5 H RBC 2.93 L Hgb 8.7 L Hct 26.8 L RDW 17.5 H Plt Count 560 H Immature Gran % (Auto) 1.1 H Neut % (Auto) 87.3 H Lymph % (Auto) 5.4 L Lymph # (Auto) 0.68 L [place] # (Auto) Immature Gran # 0.14 H Absolute Neutrophils 10.91 H Carbon Dioxide 19 L BUN 45 H Creatinine 2.8 H Glucose 128 H Calcium 8.5 L Meds: Medications Acetaminophen (Acetaminophen 325 Mg Tablet) 650 mg PO Q6HP PRN; Protocol PRN Reason: Per Pain Protocol/Fever > 101 Last Admin: 10/18/22 04:05 Dose: 650 mg Acetaminophen (Acetaminophen 325 Mg Tablet) 650 mg PO Q6HP PRN; Protocol PRN Reason: Per Pain Protocol/Fever > 101 Hydrocodone Bitart/Acetaminophen (Hydrocodone/Apap 5/325mg Tablet) 1 tab PO Q4HP PRN; Protocol PRN Reason: Per Pain Protocol Docusate Sodium (Docusate Sodium 100 Mg Capsule) 100 mg PO BID [facility] Last Admin: 10/21/22 09:08 Dose: 100 mg Lactated Ringer's (Lactated Ringers) 1,000 mls @ 75 mls/hr IV .[id number] [facility] Last Admin: 10/21/22 01:07 Dose: 75 mls/hr Melatonin (Melatonin 3 Mg Tablet) 6 mg PO HSP PRN PRN Reason: Insomnia Last Admin: 10/18/22 22:05 Dose: 6 mg Ondansetron HCl (Ondansetron 4 Mg/2 Ml Vial) 4 mg IV Q4HP PRN; Protocol PRN Reason: Nausea And Vomiting Ondansetron HCl (Ondansetron 4 Mg/2 Ml Vial) 4 mg IV Q6HP PRN PRN Reason: Nausea And Vomiting Promethazine HCl (Promethazine 25 Mg/Ml Vial) 12.5 mg IM Q6HP PRN; Protocol PRN Reason: Nausea And Vomiting Senna (Sennosides 1 Tablet) 2 tab PO HS [facility] Last Admin: 10/20/22 20:56 Dose: 2 tab Sodium Chloride (0.9 % Sodium Chloride 10 Ml Syringe) 10 ml IV Q8 [facility] Last Admin: 10/21/22 05:37 Dose: Not Given A/P Assessment and plan (1) Acute renal failure with acute tubular necrosis superimposed on stage 3b chronic kidney disease: Status: Acute (2) Anemia: Status: Acute Qualifiers: Anemia type: unspecified type Qualified Code(s): D64.9 - Anemia, unspecified (3) Acute dehydration: Status: Acute (4) Traumatic hematoma of forehead: Status: Acute Qualifiers: Encounter type: initial encounter Qualified Code(s): S00.83XA - Contusi on of other part of head, initial encounter (5) Atrial fibrillation: Status: Chronic Qualifiers: Atrial fibrillation type: longstanding persistent Qualified Code(s): I48.11 - Longstanding persistent atrial fibrillation Narrative A/P Narrative: The patient's chest pain was likely in the setting of anemia. Her hemoglobin was 7.9 and she will be transfused 1 unit of packed red blood cells. The patient's Eliquis will be held. Further discussion regarding anticoagulation would be beneficial with her family doctor. In terms of patient's WILLIE, this is likely multifactorial in etiology in the setting of hypotension, losartan, and Bactrim. The patient's torsemide will also be held. We will resuscitate her with IV fluids and monitor serial BMP. At this point, goals of care would be beneficial as the patient discussed comfort oriented care this morning and declined aggressive cardiac work-up at [facility] however wants to remain a full code. 10/19: The patient's wound on her scalp is stable. There is no bleeding. Her H&H is improved to 8.7/26.8. Her creatinine is come down from 3.5-2.8. I have started IV fluids. Of note, hospice came to assess the patient. The patient and family would like to continue medical management and follow-up with hospice postdischarge at home. 10/19: The patient's blood counts remained stable as her H&H is 9.8/29.5. Creati nine has come down to 2.3. She will likely be able to go home with hospice tomorrow if the family is in agreement. Social work will continue to work on this. 10/21: Recent severe head lac w/ acute blood loss anemia-> resolved and stable. WILLIE improving w/ LR 75cc/h, as Cr is now down to 1.9. Holding home BP meds due to soft BPs. Family now prefers d/c to SNF w/ hospice referral. Time Spent With Patient Time: Total time spent is greater than 50% in coordination of care (as documented) at patient's floor/unit and/or counseling patient: Subsequent: Total time with patient: 25 - 34 minutes
[2022-10-21] MEDS: HYDROcodone/APAP 5/325MG TABLET PO PRN (18:59)
[2022-10-21] MEDS: CALCIUM CARBONATE 500 MG TAB.CHEW CHEWED SCH ×2 (19:30→21:00)
[2022-10-21] MEDS: SENNOSIDES 1 TABLET PO SCH (20:57)
[2022-10-21] MEDS ORDERED: METOPROLOL SUCCINATE 50 MG TAB.XL.24H PO ONE ×2 (22:44→22:47)
[2022-10-21] MEDS: LORazepam 1 MG TABLET ONE (22:50)
[2022-10-21] MEDS: LORazepam 1 MG TABLET PO PRN (22:50)
[2022-10-22] MEDS: LORazepam 1 MG TABLET ONE (00:26)
[2022-10-22] MEDS: LACTATED RINGERS 1,000 ML IV SCH ×2 (04:44→18:13)
[2022-10-22] MEDS: 0.9 % SODIUM CHLORIDE 10 ML SYRINGE IV SCH ×3 (05:45→23:49)
[2022-10-22 07:45] LABS: Basophils # (Auto) 0.05 K/mcL (0.00-0.30); Basophils % (Auto) 0.7 % (0.0-2.0); Eosinophils # (Auto) 0.23 K/mcL (0.00-0.70); Eosinophils % (Auto) 3.3 % (0.0-7.0); Hemoglobin 8.7 g/dL (11.2-15.7); Lymphocytes # (Auto) 1.17 K/mcL (1.50-4.80); Lymphocytes % (Auto) 16.6 % (15.5-49.0); Mean Cell Volume 100.7 fL (80.0-100.0); Mean Platelet Volume 10.1 fL (8.8-12.5); Monocytes # (Auto) 0.49 K/mcL (0.10-0.90); Neutrophils % (Auto) 70.3 % (38.0-78.0); Platelet Count 470 K/mcL (140-440); RBC 2.88 M/mcL (3.59-5.38); Red Cell Distribution Width 18.3 % (11.5-14.5); WBC 7.1 K/mcL (4.5-11.0)
[2022-10-22 07:59] LABS: ALT/SGPT 20 U/L (<40); AST/SGOT 25 U/L (<32); Albumin 2.9 gm/dL (3.2-5.2); Albumin/Globulin Ratio 1.1 (1.0-2.3); Alkaline Phosphatase 118 U/L (39-117); Bilirubin,Total 0.5 mg/dL (0.1-1.0); Blood Urea Nitrogen 33 mg/dL (8-23); Calcium 8.9 mg/dL (8.6-10.4); Carbon Dioxide 17 mmol/L (22-30); Chloride 105 mmol/L (96-108); Globulin 2.7 gm/dL (2.2-3.7); Glomerular Filtration Rate 23; Glucose 102 mg/dL (70-105)
[2022-10-22] MEDS ORDERED: CALCIUM CARBONATE 500 MG TAB.CHEW CHEWED SCH (08:00)
--- NOTE | 2022-10-22 08:06 | Nephrology Progress Note ---
SUBJECTIVE Subjective Patient information: Note initiated : 10/22/22 at 8:04 am Patient: Natalee Rooney 87 y/o F admitted on 10/18/22 for chest pain. Chief Complaint: Weakness Principal diagnosis: Blood loss anemia, WILLIE, hypotension Pertinent ROS: Weakness Confusion at times Constitutional Vitals: Vital Signs Temp Pulse Resp BP Pulse Ox O2 Del Method O2 Flow Rate 97.5 F 110 H 20 118/94 96 Nasal Cannula 2 10/22/22 04:00 10/22/22 04:00 10/22/22 04:00 10/22/22 04:00 10/22/22 04:00 10/22/22 04:00 10/22/22 04:00 Period Temp Pulse Resp BP Sys/Edwards Pulse Ox O2 Del Method O2 Flow Rate Last 24 Hr 97.1 F-98.2 F 68-155 14-24 111-142/74-94 94-99 Nasal Cannula- Room Air 2-2 Intake and Output 10/21/22 10/22/22 10/22/22 19:59 03:59 11:59 Intake Total 2200 1000 Output Total 1 202 Balance 2199 798 Weight 166 lb 3.2 oz Intake & Output: Intake & Output 10/21/22 10/22/22 10/22/22 19:59 03:59 11:59 Intake Total 2200 1000 Output Total 1 202 Balance 2199 798 Weight 166 lb 3.2 oz Intake: IV 1000 1000 Lactated Ringers 1,000 ml @ 75 1000 1000 mls/hr IV .[id number] [facility] Rx#: [id number] Oral 1200 Output: Void Amount 200 # of times incontinent of urine 1 2 Other: Meal Dinner Percent of Meal Consumed 100% Feeding Ability Independent Urine Appearance Clear Clear Clear Urine Color Yellow Yellow Yellow Urine Odor Strong Stool Size Copious Stool Color Brown Stool Consistency Liquid Watery # Voids 1 # of times incontinent of 1 Bowels General appearance: cooperative and no acute distress Head Head exam: Present normal inspection Eye Eye exam: Present normal appearance ENT ENT exam: Present mucous membranes moist Respiratory Respiratory exam: Absent respiratory distress Cardiovascular Cardiovascular exam: Present normal rate and rhythm GI/Abdominal GI/Abdominal exam: Present soft; Absent tenderness Extremities Exam Extremities exam: Absent joint swelling or pedal edema Neurological Exam Neurological exam: Present alert Psychiatric Psychiatric exam: Present normal affect and normal mood Skin Skin exam: Present warm; Absent rash A/P Assessment and plan (1) Acute renal failure with acute tubular necrosis superimposed on stage 3b chronic kidney disease: Assessment and plan: Natalee Rooney is an 87-year-old female with chronic kidney disease stage 3b, coronary artery disease s/p stents, atrial fibrillation on chronic anticoagulation, diabetes mellitus type 2 and hypertension admitted on 10/18/22. She initially presented to [facility] ED for a forehead lesion on 10/13/22 and prescribed Bactrim for UTI. She presented to ED again for chest pain on 10/07/22 and was diagnosed with WILLIE. Nephrology consultation was requested for acute kidney injury. Acute kidney injury, likely acute tubular necrosis associated with a new prescription of Bactrim on Losartan and Torsemide on chronic kidney disease stage 3b, present on arrival. There is no recent history of IV contrast administration or NSAID use. Intravascular volume depletion considered. Work up: CT Chest, Abdomen and Pelvis without contrast on 10/18/22: A specific cause for anemia is not apparent. Decreased erythropoietin due to bilateral renal atrophy may be a factor if the anemia is normocytic. Otherwise, GI blood loss would be a common cause. Consider tagged red blood cell study. Moderate stool impaction within the rectum. Osteoporosis with mild chronic compression fractures of the L1 and L2 vertebral bodies. Mild pancreatic atrophy. Moderate cardiomegaly with heavy calcific plaque in the coronary arteries. Progress: Serum creatinine 1.9 in the past 48 hours. Baseline serum creatinine 1.1 on 10/13/22. Urine output: 100 ml reported in the past 24 hours. Metabolic acidosis. Fluid overload: I/O: +7.5L since admit. No uremic symptoms. Recommendations/Plan: No acute hemodialysis need. Discharge plan: Family is planning return home with son on hospice. Status: Acute Time Spent With Patient Time: Total time spent is greater than 50% in coordination of care (as documented) at patient's floor/unit and/or counseling patient:
[2022-10-22] MEDS: METOPROLOL SUCCINATE 50 MG TAB.XL.24H PO SCH (08:39)
[2022-10-22] MEDS: CALCIUM CARBONATE 500 MG TAB.CHEW CHEWED SCH ×3 (08:39→23:49)
[2022-10-22] MEDS: DOCUSATE SODIUM 100 MG CAPSULE PO SCH ×2 (08:40→23:48)
[2022-10-22] MEDS: LORazepam 1 MG TABLET PO PRN (14:49)
--- NOTE | 2022-10-22 15:34 | Internal Med Progress Note ---
SUBJECTIVE Subjective Patient information: Note initiated : 10/22/22 at 3:28 pm Service Date, if different from initiated Date: [] Patient: Natalee Rooney a 87 y/o F admitted on 10/18/22 for chest pain. Chief Complaint: [] Principal diagnosis: Blood loss anemia, WILLIE, hypotension Interval history: Ms. Rooney is a 87 year old F with a past medical history significant for subdural hematoma, chronic atrial fibrillation, congestive heart failure, CKD stage III and recent NSTEMI who presents to the hospital once again complaining of chest pain. The patient was in the ER a few days ago for a fall resulting in a severe head laceration. The patient had a significant bleeding episode in the setting of full anticoagulation as she is on Eliquis. The patient was also complaining of chest pain at that time and she was transferred to [facility] where she had a full work-up however declined aggressive medical management. F rom my understanding, she did not undergo left heart cath. The patient now presents to the hospital once again with complaints of chest pain. Troponins are unrevealing and EKG did not reveal dynamic ST changes. She was found to be anemic as her hemoglobin dropped from 11.4 recently to 7.9. She was also found to have a creatinine of 4.1. The patient's blood pressure was running on the low side as well as she was found to have blood pressure of 104/58. The hospitalist service was asked admit the patient for further management and evaluation of her acute kidney injury. 10/19: The patient was resting comfortably in bed while eating breakfast. Her son was present at the bedside to discuss plan of care. 10/20: The patient was resting comfortably in bed. Discussed plan of care with barbra m anagement and social work. 10/21: Concerns about delirium upon dementia yesterday. No focal deficits. Family no longer willing to take her home as they cannot look after her. 10/22: Daughter MONE called and would like to switch patient's resuscitation status from full resuscitation to DNR. Patient developed episode of uncontrolled atrial fibrillation's with heart rate up to 150s beats per minute yesterday evening, metoprolol resumed and Ativan was also made available to her. She was also complaining of chest pain. Serial troponin mildly elevated 0.11, 0.15, 0.19. Patient's heart rate is currently in the 70s beats per minute and patient denies having any more chest pain. H&H 8.7/29.0 this morning. Serum BUN/creatinine 3.3 and 1.9, respectively. Patient is still somewhat agitated and confused. We will continue metoprolol for heart rate control. We will still have Ativan as needed for agitation and anxiety. Pending SNF hospice placement. Constitutional Vitals: Vital Signs Temp Pulse Resp BP Pulse Ox O2 Del Method O2 Flow Rate 36.3 C 83 18 114/78 98 Room Air 2 10/22/22 12:00 10/22/22 12:00 10/22/22 12:00 10/22/22 12:00 10/22/22 12:00 10/22/22 12:00 10/22/22 04:00 Period Temp Pulse Resp BP Sys/Edwards Pulse Ox O2 Del Method O2 Flow Rate Last 24 Hr 36.3 C-36.8 C 74-155 14-24 103-142/64-94 94-99 Nasal Cannula-Room Air 2-2 Intake and Output 10/22/22 10/22/22 10/22/22 03:59 11:59 19:59 Intake Total 1000 Output Total 202 Balance 798 Weight 75.387 kg Intake & Output: Intake & Output 10/22/22 10/22/22 10/22/22 03:59 11:59 19:59 Intake Total 1000 Output Total 202 Balance 798 Weight 75.387 kg Intake: IV 1000 Lactated Ringers 1,000 ml @ 75 1000 mls/hr IV .[id number] [facility] Rx#: [id number] Output: Void Amount 200 # of times incontinent of urine 2 Other: Urine Appearance Clear Clear Urine Color Yellow Yellow Stool Size Moderate Stool Color Brown Stool Consistency Liquid Head Head exam: Absent atraumatic, normal inspection or normocephalic Additional comments: left scalp laceration Eye Eye exam: Present normal appearance ENT ENT exam: Present mucous membranes moist, normal exam and normal external ear exam Neck Neck exam: Present normal inspection Respiratory Respiratory exam: Present normal respiratory exam Cardiovascular Cardiovascular exam: Present irregular rhythm GI/Abdominal GI/Abdominal exam: Present normal bowel sounds Back Exam Back exam: Present normal inspection Neurological Exam Neurological exam: Present alert and altered; Absent oriented X3 Skin Skin exam: Present intact and warm OBJ DATA Labs 10/22/22 06:24 10/22/22 06:23 Labs: Abnormal Lab Results 10/22/22 10/22/22 10/22/22 06:24 06:24 06:23 RBC 2.88 L Hgb 8.7 L Hct 29.0 L MCV 100.7 H MCHC 30.0 L RDW 18.3 H Plt Count 470 H Immature Gran % (Auto) 2.1 H Lymph % (Auto) Lymph # (Auto) 1.17 L [place] # (Auto) Immature Gran # 0.15 H Carbon Dioxide 17 L BUN 33 H Creatinine 1.9 H Glucose Alkaline Phosphatase 118 H Troponin T 0.19 H* Total Protein 5.6 L Albumin 2.9 L POC Troponin I 10/22/22 10/21/22 10/21/22 00:39 20:29 20:24 RBC Hgb Hct MCV MCHC RDW Plt Count Immature Gran % (Auto) Lymph % (Auto) Lymph # (Auto) [place] # (Auto) Immature Gran # Carbon Dioxide BUN Creatinine Glucose Alkaline Phosphatase Troponin T 0.15 H* 0.11 H* Total Protein Albumin POC Troponin I 0.27 H 10/21/22 10/20/22 10/20/22 06:00 05:43 05:43 RBC 3.21 L Hgb 9.8 L Hct 29.5 L MCV MCHC RDW 17.8 H Plt Count 600 H Immature Gran % (Auto) 1.6 H Lymph % (Auto) 12.8 L Lymph # (Auto) 1.32 L [place] # (Auto) 0.91 H Immature Gran # 0.16 H Carbon Dioxide 18 L 18 L BUN 34 H 38 H Creatinine 1.9 H 2.3 H Glucose 106 H Alkaline Phosphatase Troponin T Total Protein Albumin POC Troponin I Meds: Medications Acetaminophen (Acetaminophen 325 Mg Tablet) 650 mg PO Q6HP PRN; Protocol PRN Reason: Per Pain Protocol/Fever > 101 Last Admin: 10/18/22 04:05 Dose: 650 mg Acetaminophen (Acetaminophen 325 Mg Tablet) 650 mg PO Q6HP PRN; Protocol PRN Reason: Per Pain Protocol/Fever > 101 Hydrocodone Bitart/Acetaminophen (Hydrocodone/Apap 5/325mg Tablet) 1 tab PO Q4HP PRN; Protocol PRN Reason: Per Pain Protocol Last Admin: 10/21/22 18:59 Dose: 1 tab Calcium Carbonate/Glycine (Calcium Carbonate 500 Mg Tab.Chew) 500 mg CHEWED TID [facility] Last Admin: 10/22/22 14:49 Dose: 500 mg Docusate Sodium (Docusate Sodium 100 Mg Capsule) 100 mg PO BID [facility] Last Admin: 10/22/22 08:40 Dose: Not Given Lactated Ringer's (Lactated Ringers) 1,000 mls @ 75 mls/hr IV .[id number] [facility] Last Admin: 10/22/22 04:44 Dose: 75 mls/hr Lorazepam (Lorazepam 1 Mg Tablet) 1 mg PO Q6HP PRN PRN Reason: ANXIETY/SEDATION Last Admin: 10/22/22 14:49 Dose: 1 mg Melatonin (Melatonin 3 Mg Tablet) 6 mg PO HSP PRN PRN Reason: Insomnia Last Admin: 10/18/22 22:05 Dose: 6 mg Metoprolol Succinate (Metoprolol Succinate 50 Mg Tab.Xl.24h) 50 mg PO DAILY [facility] Last Admin: 10/22/22 08:39 Dose: 50 mg Ondansetron HCl (Ondansetron 4 Mg/2 Ml Vial) 4 mg IV Q4HP PRN; Protocol PRN Reason: Nausea And Vomiting Ondansetron HCl (Ondansetron 4 Mg/2 Ml Vial) 4 mg IV Q6HP PRN PRN Reason: Nausea And Vomiting Promethazine HCl (Promethazine 25 Mg/Ml Vial) 12.5 mg IM Q6HP PRN; Protocol PRN Reason: Nausea And Vomiting Senna (Sennosides 1 Tablet) 2 tab PO HS [facility] Last Admin: 10/21/22 20:57 Dose: 2 tab Sodium Chloride (0.9 % Sodium Chloride 10 Ml Syringe) 10 ml IV Q8 [facility] Last Admin: 10/22/22 14:49 Dose: 10 ml A/P Assessment and plan (1) Acute renal failure with acute tubular necrosis superimposed on stage 3b chronic kidney disease: Status: Acute (2) Weakness: Status: Acute (3) Anemia: Status: Acute Qualifiers: Anemia type: unspecified type Qualified Code(s): D64.9 - Anemia, unspecified (4) Atrial fibrillation: Status: Chronic Qualifiers: Atrial fibrillation type: longstanding persistent Qualified Code(s): I48.11 - Longstanding persistent atrial fibrillation (5) Hypertension, essential: Status: Chronic (6) Laceration of head: Status: Acute (7) Delirium: Status: Acute Narrative A/P Narrative: Assessment and Plans: 1. Anemia secondary to left sided head contusion and scalp laceration: Inpatient med surg DNR, pending inpatient hospice placement cbc w/ auto diff to trend H/H 2. Acute delirium: Ativan PRN anxiety agitation DNR, pending inpatient hospice placement 3. 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 appreciated LR@75cc/hr Chemistry in the morning to trend kidney functions 4. Essential HTN: Metoprolol Succinate 5. Atrial fibrillation: Metoprolol Succinate No anticoagulation due to recent head trauma and high fall risk and overall goal of care GI ppx: Not currently indicated DVT ppx: No anticoagulation due to recent head trauma and high fall risk and overall goal of care Code status: DNR Prognosis: Poor Disposition: Inpatient med surg; pending inpatient hospice Time Spent With Patient Time: Total time spent is greater than 50% in coordination of care (as documented) at patient's floor/unit and/or counseling patient: Subsequent: Total time with patient: 35 - 49 minutes
[2022-10-22] MEDS: HYDROcodone/APAP 5/325MG TABLET PO PRN (23:47)
[2022-10-22] MEDS: SENNOSIDES 1 TABLET PO SCH (23:48)
[2022-10-23] MEDS: 0.9 % SODIUM CHLORIDE 10 ML SYRINGE IV SCH ×3 (06:20→21:34)
[2022-10-23 06:43] LABS: Basophils # (Auto) 0.08 K/mcL (0.00-0.30); Basophils % (Auto) 1.1 % (0.0-2.0); Eosinophils # (Auto) 0.39 K/mcL (0.00-0.70); Eosinophils % (Auto) 5.4 % (0.0-7.0); Hemoglobin 9.4 g/dL (11.2-15.7); Lymphocytes # (Auto) 1.52 K/mcL (1.50-4.80); Mean Cell Volume 101.9 fL (80.0-100.0); Mean Corpuscular HGB Conc 29.4 g/dL (31.0-36.0); Monocytes # (Auto) 0.49 K/mcL (0.10-0.90); Monocytes % (Auto) 6.8 % (1.0-12.0); Neutrophils % (Auto) 63.1 % (38.0-78.0); Platelet Count 519 K/mcL (140-440); RBC 3.14 M/mcL (3.59-5.38); Red Cell Distribution Width 18.4 % (11.5-14.5); WBC 7.3 K/mcL (4.5-11.0)
[2022-10-23 07:08] LABS: ALT/SGPT 25 U/L (<40); AST/SGOT 28 U/L (<32); Albumin 2.9 gm/dL (3.2-5.2); Albumin/Globulin Ratio 1.2 (1.0-2.3); Alkaline Phosphatase 125 U/L (39-117); Bilirubin,Total 0.6 mg/dL (0.1-1.0); Blood Urea Nitrogen 32 mg/dL (8-23); Calcium 9.1 mg/dL (8.6-10.4); Carbon Dioxide 18 mmol/L (22-30); Chloride 106 mmol/L (96-108); Globulin 2.5 gm/dL (2.2-3.7); Glomerular Filtration Rate 28; Glucose 84 mg/dL (70-105)
--- NOTE | 2022-10-23 07:24 | Nephrology Progress Note ---
SUBJECTIVE Subjective Patient information: Note initiated : 10/23/22 at 7:21 am Patient: Natalee Rooney 87 y/o F admitted on 10/18/22 for chest pain. Chief Complaint: [] Principal diagnosis: Blood loss anemia, WILLIE, hypotension Pertinent ROS: Weakness Confusion Constitutional Vitals: Vital Signs Temp Pulse Resp BP Pulse Ox O2 Del Method O2 Flow Rate 97.3 F 68 16 118/74 98 Room Air 2 10/23/22 04:51 10/23/22 04:51 10/23/22 04:51 10/23/22 04:51 10/23/22 04:51 10/23/22 04:51 10/22/22 04:00 Period Temp Pulse Resp BP Sys/Edwards Pulse Ox O2 Del Method O2 Flow Rate Last 24 Hr 97.3 F-97.8 F 61-91 16-20 103-120/64-91 95-98 Room Air-Room Air Intake and Output 10/22/22 10/23/22 10/23/22 19:59 03:59 11:59 Intake Total 1000 283 200 Output Total 200 400 Balance 800 283 -200 Weight 165 lb 4.8 oz Intake & Output: Intake & Output 10/22/22 10/23/22 10/23/22 19:59 03:59 11:59 Intake Total 1000 283 200 Output Total 200 400 Balance 800 283 -200 Weight 165 lb 4.8 oz Intake: IV 1000 283 0 Lactated Ringers 1,000 ml @ 75 1000 283 0 mls/hr IV .[id number] [facility] Rx#: [id number] Oral 200 Output: Void Amount 200 400 Other: Urine Appearance Clear Clear Clear Urine Color Dark Yellow Dark Yellow Dark Yellow Urine Odor Strong Stool Size Moderate Small Stool Color Brown Brown Stool Consistency Liquid Formed # of times incontinent of 1 Bowels General appearance: cooperative and no acute distress Head Head exam: Present normal inspection Eye Eye exam: Present normal appearance ENT ENT exam: Present mucous membranes moist Respiratory Respiratory exam: Absent respiratory distress Cardiovascular Cardiovascular exam: Present normal rate and rhythm GI/Abdominal GI/Abdominal exam: Present soft; Absent tenderness Extremities Exam Extremities exam: Absent joint swelling or pedal edema Neurological Exam Neurological exam: Present alert Psychiatric Psychiatric exam: Present normal affect and normal mood Skin Skin exam: Present warm; Absent rash A/P Assessment and plan (1) Acute renal failure with acute tubular necrosis superimposed on stage 3b chronic kidney disease: Assessment and plan: Natalee Rooney is an 87-year-old female with chronic kidney disease stage 3b, coronary artery disease s/p stents, atrial fibrillation on chronic anticoagulation, diabetes mellitus type 2 and hypertension admitted on 10/18/22. She initially presented to [facility] ED for a forehead lesion on 10/13/22 and prescribed Bactrim for UTI. She presented to ED again for chest pain on 10/07/22 and was diagnosed with WILLIE. Nephrology consultation was requested for acute kidney injury. Acute kidney injury, likely acute tubular necrosis associated with a new prescription of Bactrim on Losartan and Torsemide on chronic kidney disease stage 3b, present on arrival. There is no recent history of IV contrast administration or NSAID use. Intravascular volume depletion considered. Work up: CT Chest, Abdomen and Pelvis without contrast on 10/18/22: A specific cause for anemia is not apparent. Decreased erythropoietin due to bilateral renal atrophy may be a factor if the anemia is normocytic. Otherwise, GI blood loss would be a common cause. Consider tagged red blood cell study. Moderate stool impaction within the rectum. Osteoporosis with mild chronic compression fractures of the L1 and L2 vertebral bodies. Mild pancreatic atrophy. Moderate cardiomegaly with heavy calcific plaque in the coronary arteries. Progress: Serum creatinine decreased from 1.9 to 1.6 in the past 24 hours. Baseline serum creatinine 1.1 on 10/13/22. Urine output: 400 ml reported in the past 24 hours. Metabolic acidosis. No uremic symptoms. Recommendations/Plan: No acute hemodialysis need. Discharge plan: Family is planning return home with son on hospice. Status: Acute Time Spent With Patient Time: Total time spent is greater than 50% in coordination of care (as documented) at patient's floor/unit and/or counseling patient:
--- NOTE | 2022-10-23 07:55 | EKG ---
[facility] Test Date: 2022-10-21 Pat Name: Natalee Rooney Department: MEDSUR Room: 126 Gender: Female Safety Physician: : [id number] Requested By: Crow Garrett Order Number: [id number] Reading MD: Dante Cabrera M.D. Measurements Intervals [place] Rate: 155 P: [place]: QRS: -15 QRSD: 93 T: 167 QT: 270 QTc: 431 Interpretive Statements Atrial fibrillation with rapid V-rate Borderline left axis deviation Probable anteroseptal infarct, recent Electronically Signed On 10-23-2022 7:55:15 PST by Dante Cabrera M.D. /store/M0/[id number]
[2022-10-23] MEDS: METOPROLOL SUCCINATE 50 MG TAB.XL.24H PO SCH (08:52)
[2022-10-23] MEDS: DOCUSATE SODIUM 100 MG CAPSULE PO SCH ×2 (08:53→21:33)
[2022-10-23] MEDS: CALCIUM CARBONATE 500 MG TAB.CHEW CHEWED SCH ×3 (08:53→21:34)
--- NOTE | 2022-10-23 13:40 | Internal Med Progress Note ---
SUBJECTIVE Subjective Patient information: Note initiated : 10/23/22 at 1:38 pm Service Date, if different from initiated Date: [] Patient: Natalee Rooney a 87 y/o F admitted on 10/18/22 for chest pain. Chief Complaint: [] Principal diagnosis: Blood loss anemia, WILLIE, hypotension Interval history: Ms. Rooney is a 87 year old F with a past medical history significant for subdural hematoma, chronic atrial fibrillation, congestive heart failure, CKD stage III and recent NSTEMI who presents to the hospital once again complaining of chest pain. The patient was in the ER a few days ago for a fall resulting in a severe head laceration. The patient had a significant bleeding episode in the setting of full anticoagulation as she is on Eliquis. The patient was also complaining of chest pain at that time and she was transferred to [facility] where she had a full work-up however declined aggressive medical management. F rom my understanding, she did not undergo left heart cath. The patient now presents to the hospital once again with complaints of chest pain. Troponins are unrevealing and EKG did not reveal dynamic ST changes. She was found to be anemic as her hemoglobin dropped from 11.4 recently to 7.9. She was also found to have a creatinine of 4.1. The patient's blood pressure was running on the low side as well as she was found to have blood pressure of 104/58. The hospitalist service was asked admit the patient for further management and evaluation of her acute kidney injury. 10/19: The patient was resting comfortably in bed while eating breakfast. Her son was present at the bedside to discuss plan of care. 10/20: The patient was resting comfortably in bed. Discussed plan of care with barbra m anagement and social work. 10/21: Concerns about delirium upon dementia yesterday. No focal deficits. Family no longer willing to take her home as they cannot look after her. 10/22: Daughter MONE called and would like to switch patient's resuscitation status from full resuscitation to DNR. Patient developed episode of uncontrolled atrial fibrillation's with heart rate up to 150s beats per minute yesterday evening, metoprolol resumed and Ativan was also made available to her. She was also complaining of chest pain. Serial troponin mildly elevated 0.11, 0.15, 0.19. Patient's heart rate is currently in the 70s beats per minute and patient denies having any more chest pain. H&H 8.7/29.0 this morning. Serum BUN/creatinine 3.3 and 1.9, respectively. Patient is still somewhat agitated and confused. We will continue metoprolol for heart rate control. We will still have Ativan as needed for agitation and anxiety. Pending SNF hospice placement. 10/23: Stable H/H 8.7/29.0-->9.4/32.0. Kidney functions improving, serum Cr 1.9-->1.6. Patient able to carry out a conversation with me but she is only oriented x1 to herself. She stated that she is confused and sleepy and she is still c omplaining of left-sided headache. We will continue metoprolol for heart rate control. We will still have Ativan as needed for agitation and anxiety. Pending SNF hospice placement. Constitutional Vitals: Vital Signs Temp Pulse Resp BP Pulse Ox O2 Del Method O2 Flow Rate 37.1 C 82 20 122/76 98 Room Air 2 10/23/22 12:00 10/23/22 12:00 10/23/22 12:00 10/23/22 12:00 10/23/22 12:00 10/23/22 12:00 10/22/22 04:00 Period Temp Pulse Resp BP Sys/Edwards Pulse Ox O2 Del Method O2 Flow Rate Last 24 Hr 36.3 C-37.1 C 61-91 16-22 112-144/71-91 95-99 Room Air-Room Air Intake and Output 10/23/22 10/23/22 10/23/22 03:59 11:59 19:59 Intake Total 283 200 Output Total 400 Balance 283 -200 Weight 74.979 kg Intake & Output: Intake & Output 10/23/22 10/23/22 10/23/22 03:59 11:59 19:59 Intake Total 283 200 Output Total 400 Balance 283 -200 Weight 74.979 kg Intake: IV 283 0 Lactated Ringers 1,000 ml @ 75 283 0 mls/hr IV .[id number] [facility] Rx#: [id number] Oral 200 Output: Void Amount 400 Other: Urine Appearance Clear Clear Urine Color Dark Yellow Dark Yellow Urine Odor Strong Stool Size Small Stool Color Brown Stool Consistency Formed # of times incontinent of 1 Bowels General appearance: average body habitus, cooperative and no acute distress Head Head exam: Absent atraumatic, normal inspection or normocephalic Additional comments: Left scalp laceration Eye Eye exam: Present normal appearance ENT ENT exam: Present mucous membranes moist, normal exam and normal external ear exam Neck Neck exam: Present normal inspection Respiratory Respiratory exam: Present normal respiratory exam Cardiovascular Cardiovascular exam: Present irregular rhythm GI/Abdominal GI/Abdominal exam: Present normal bowel sounds Back Exam Back exam: Present normal inspection Neurological Exam Neurological exam: Present alert and altered Additional comments: oriented X1 to person only Skin Skin exam: Present intact and warm OBJ DATA Labs 10/23/22 05:59 10/23/22 05:59 Labs: Abnormal Lab Results 10/23/22 10/23/22 10/22/22 05:59 05:59 06:24 RBC 3.14 L Hgb 9.4 L Hct 32.0 L MCV 101.9 H MCHC 29.4 L RDW 18.4 H Plt Count 519 H Immature Gran % (Auto) 2.6 H Lymph # (Auto) Immature Gran # 0.19 H Carbon Dioxide 18 L BUN 32 H Creatinine 1.6 H Glucose Alkaline Phosphatase 125 H Troponin T 0.19 H* Total Protein 5.4 L Albumin 2.9 L POC Troponin I 10/22/22 10/22/22 10/22/22 06:24 06:23 00:39 RBC 2.88 L Hgb 8.7 L Hct 29.0 L MCV 100.7 H MCHC 30.0 L RDW 18.3 H Plt Count 470 H Immature Gran % (Auto) 2.1 H Lymph # (Auto) 1.17 L Immature Gran # 0.15 H Carbon Dioxide 17 L BUN 33 H Creatinine 1.9 H Glucose Alkaline Phosphatase 118 H Troponin T 0.15 H* Total Protein 5.6 L Albumin 2.9 L POC Troponin I 10/21/22 10/21/22 10/21/22 20:29 20:24 06:00 RBC Hgb Hct MCV MCHC RDW Plt Count Immature Gran % (Auto) Lymph # (Auto) Immature Gran # Carbon Dioxide 18 L BUN 34 H Creatinine 1.9 H Glucose 106 H Alkaline Phosphatase Troponin T 0.11 H* Total Protein Albumin POC Troponin I 0.27 H Meds: Medications Acetaminophen (Acetaminophen 325 Mg Tablet) 650 mg PO Q6HP PRN; Protocol PRN Reason: Per Pain Protocol/Fever > 101 Last Admin: 10/18/22 04:05 Dose: 650 mg Acetaminophen (Acetaminophen 325 Mg Tablet) 650 mg PO Q6HP PRN; Protocol PRN Reason: Per Pain Protocol/Fever > 101 Hydrocodone Bitart/Acetaminophen (Hydrocodone/Apap 5/325mg Tablet) 1 tab PO Q4HP PRN; Protocol PRN Reason: Per Pain Protocol Last Admin: 10/22/22 23:47 Dose: 1 tab Calcium Carbonate/Glycine (Calcium Carbonate 500 Mg Tab.Chew) 500 mg CHEWED TID [facility] Last Admin: 10/23/22 08:53 Dose: 500 mg Docusate Sodium (Docusate Sodium 100 Mg Capsule) 100 mg PO BID [facility] Last Admin: 10/23/22 08:53 Dose: Not Given Lactated Ringer's (Lactated Ringers) 1,000 mls @ 75 mls/hr IV .[id number] [facility] Last Infusion: 10/23/22 04:49 Dose: 75 mls/hr Lorazepam (Lorazepam 1 Mg Tablet) 1 mg PO Q6HP PRN PRN Reason: ANXIETY/SEDATION Last Admin: 10/22/22 14:49 Dose: 1 mg Melatonin (Melatonin 3 Mg Tablet) 6 mg PO HSP PRN PRN Reason: Insomnia Last Admin: 10/18/22 22:05 Dose: 6 mg Metoprolol Succinate (Metoprolol Succinate 50 Mg Tab.Xl.24h) 50 mg PO DAILY [facility] Last Admin: 10/23/22 08:52 Dose: 50 mg Ondansetron HCl (Ondansetron 4 Mg/2 Ml Vial) 4 mg IV Q4HP PRN; Protocol PRN Reason: Nausea And Vomiting Ondansetron HCl (Ondansetron 4 Mg/2 Ml Vial) 4 mg IV Q6HP PRN PRN Reason: Nausea And Vomiting Promethazine HCl (Promethazine 25 Mg/Ml Vial) 12.5 mg IM Q6HP PRN; Protocol PRN Reason: Nausea And Vomiting Senna (Sennosides 1 Tablet) 2 tab PO HS [facility] Last Admin: 10/22/22 23:48 Dose: 2 tab Sodium Chloride (0.9 % Sodium Chloride 10 Ml Syringe) 10 ml IV Q8 [facility] Last Admin: 01/30/23 06:20 Dose: Not Given A/P Assessment and plan (1) Acute renal failure with acute tubular necrosis superimposed on stage 3b chronic kidney disease: Status: Acute (2) Weakness: Status: Acute (3) Anemia: Status: Acute Qualifiers: Anemia type: unspecified type Qualified Code(s): D64.9 - Anemia, unspecified (4) Atrial fibrillation: Status: Chronic Qualifiers: Atrial fibrillation type: longstanding persistent Qualified Code(s): I48.11 - Longstanding persistent atrial fibrillation (5) Hypertension, essential: Status: Chronic (6) Laceration of head: Status: Acute (7) Delirium: Status: Acute Narrative A/P Narrative: Assessment and Plans: 1. Anemia secondary to left sided head contusion and scalp laceration: Inpatient med surg DNR, pending inpatient hospice placement cbc w/ auto diff to trend H/H 2. Acute delirium: Ativan PRN anxiety agitation DNR, pending inpatient hospice placement 3. Acute on chronic kidney injury: Consulting mold filler plastic dollstabitha. appreciated LR@75cc/hr Chemistry in the morning to trend kidney functions 4. Essential HTN: Metoprolol Succinate 5. Atrial fibrillation: Metoprolol Succinate No anticoagulation due to recent head trauma and high fall risk and overall goal of care GI ppx: Not currently indicated DVT ppx: No anticoagulation due to recent head trauma and high fall risk and overall goal of care Code status: DNR Prognosis: Poor Disposition: Inpatient med surg; pending inpatient hospice Time Spent With Patient Time: Total time spent is greater than 50% in coordination of care (as documented) at patient's floor/unit and/or counseling patient: Subsequent: Total time with patient: 35 - 49 minutes
[2022-10-23] MEDS: LACTATED RINGERS 1,000 ML IV SCH ×2 (15:49→15:50)
[2022-10-23] MEDS: SENNOSIDES 1 TABLET PO SCH (21:33)
[2022-10-23] MEDS: LORazepam 1 MG TABLET PO PRN (23:43)
[2022-10-24] MEDS: 0.9 % SODIUM CHLORIDE 10 ML SYRINGE IV SCH (05:35)
[2022-10-24] MEDS: LACTATED RINGERS 1,000 ML IV SCH ×2 (06:11→13:20)
[2022-10-24 06:29] LABS: Basophils # (Auto) 0.07 K/mcL (0.00-0.30); Basophils % (Auto) 0.9 % (0.0-2.0); Eosinophils # (Auto) 0.44 K/mcL (0.00-0.70); Eosinophils % (Auto) 5.4 % (0.0-7.0); Hematocrit 29.6 % (34.1-44.9); Hemoglobin 9.1 g/dL (11.2-15.7); Lymphocytes # (Auto) 1.67 K/mcL (1.50-4.80); Lymphocytes % (Auto) 20.5 % (15.5-49.0); Mean Cell Volume 96.4 fL (80.0-100.0); Mean Corpuscular HGB Conc 30.7 g/dL (31.0-36.0); Mean Platelet Volume 10.1 fL (8.8-12.5); Monocytes # (Auto) 0.56 K/mcL (0.10-0.90); Monocytes % (Auto) 6.9 % (1.0-12.0); Neutrophils % (Auto) 61.9 % (38.0-78.0); Platelet Count 564 K/mcL (140-440); RBC 3.07 M/mcL (3.59-5.38); Red Cell Distribution Width 18.2 % (11.5-14.5); WBC 8.1 K/mcL (4.5-11.0)
[2022-10-24 06:53] LABS: ALT/SGPT 20 U/L (<40); AST/SGOT 20 U/L (<32); Albumin 2.9 gm/dL (3.2-5.2); Albumin/Globulin Ratio 1.2 (1.0-2.3); Alkaline Phosphatase 118 U/L (39-117); Bilirubin,Total 0.5 mg/dL (0.1-1.0); Blood Urea Nitrogen 29 mg/dL (8-23); Calcium 9.2 mg/dL (8.6-10.4); Carbon Dioxide 20 mmol/L (22-30); Chloride 103 mmol/L (96-108); Globulin 2.5 gm/dL (2.2-3.7); Glomerular Filtration Rate 33; Glucose 96 mg/dL (70-105)
--- NOTE | 2022-10-24 07:08 | Nephrology Progress Note ---
SUBJECTIVE Subjective Patient information: Note initiated : 10/24/22 at 7:06 am Patient: Natalee Rooney 87 y/o F admitted on 10/18/22 for chest pain. Chief Complaint: Weakness Principal diagnosis: Blood loss anemia, WILLIE, hypotension Pertinent ROS: Weakness Constitutional Vitals: Vital Signs Temp Pulse Resp BP Pulse Ox O2 Del Method O2 Flow Rate 97.0 F 98 H 22 128/76 96 Room Air 2 10/24/22 03:10 10/24/22 03:10 10/24/22 03:10 10/24/22 03:10 10/24/22 03:10 10/24/22 03:10 10/22/22 04:00 Period Temp Pulse Resp BP Sys/Edwards Pulse Ox O2 Del Method O2 Flow Rate Last 24 Hr 97.0 F-98.8 F 82-98 20-22 122-144/73-80 96-99 Room Air-Room Air Intake and Output 10/23/22 10/24/22 10/24/22 19:59 03:59 11:59 Intake Total 3799 910 3730 Output Total 2 100 Balance 1435 300 900 Weight 167 lb 1.6 oz Patient Weight 10/25/22 03:59 Weight 167 lb 1.6 oz Intake & Output: Intake & Output 10/23/22 10/24/22 10/24/22 19:59 03:59 11:59 Intake Total 1268 442 3103 Output Total 2 100 Balance 1435 300 900 Weight 167 lb 1.6 oz Intake: IV 717 1000 Lactated Ringers 1,000 ml @ 75 717 1000 mls/hr IV .[id number] [facility] Rx#: [id number] Oral 720 300 Output: Urine Catheter Amount 100 # of times incontinent of urine 2 Other: Meal Lunch Percent of Meal Consumed 25% Feeding Ability Assist with Tray Set Up Urine Appearance Clear Clear Urine Color Yellow Yellow Urine Odor Normal Stool Size Large Stool Color Brown Stool Consistency Liquid # of times incontinent of 2 Bowels General appearance: cooperative and no acute distress Head Head exam: Present normal inspection Eye Eye exam: Present normal appearance ENT ENT exam: Present mucous membranes moist Respiratory Respiratory exam: Absent respiratory distress Cardiovascular Cardiovascular exam: Present normal rate and rhythm GI/Abdominal GI/Abdominal exam: Present soft; Absent tenderness Extremities Exam Extremities exam: Absent joint swelling or pedal edema Neurological Exam Neurological exam: Present alert Psychiatric Psychiatric exam: Present normal affect and normal mood Skin Skin exam: Present warm; Absent rash A/P Assessment and plan (1) Acute renal failure with acute tubular necrosis superimposed on stage 3b chronic kidney disease: Assessment and plan: Natalee Rooney is an 87-year-old female with chronic kidney disease stage 3b, coronary artery disease s/p stents, atrial fibrillation on chronic anticoagulat ion, diabetes mellitus type 2 and hypertension admitted on 10/18/22. She initially presented to [facility] ED for a forehead lesion on 10/13/22 and prescribed Bactrim for UTI. She presented to ED again for chest pain on 10/07/22 and was diagnosed with WILLIE. Nephrology consultation was requested for acute kidney injury. Acute kidney injury, likely acute tubular necrosis associated with a new prescription of Bactrim on Losartan and Torsemide on chronic kidney disease stage 3b, present on arrival, resolved. Work up: CT Chest, Abdomen and Pelvis without contrast on 10/18/22: A specific cause for anemia is not apparent. Decreased erythropoietin due to bilateral renal atrophy may be a factor if the anemia is normocytic. Otherwise, GI blood loss would be a common cause. Consider tagged red blood cell study. Moderate stool impaction within the rectum. Osteoporosis with mild chronic compression fractures of the L1 and L2 vertebral bodies. Mild pancreatic atrophy. Moderate cardiomegaly with heavy calcific plaque in the coronary arteries. Progress: Serum creatinine decreased from 1.6 to 1.4 in the past 24 hours. Baseline serum creatinine 1.1 on 10/13/22. Urine output: 400 ml reported in the past 24 hours. Metabolic acidosis. No uremic symptoms. Recommendations/Plan: No acute hemodialysis need. Discharge plan: SNF placement pending. Status: Acute Time Spent With Patient Time: Total time spent is greater than 50% in coordination of care (as documented) at patient's floor/unit and/or counseling patient:
[2022-10-24] MEDS: METOPROLOL SUCCINATE 50 MG TAB.XL.24H PO SCH (10:02)
[2022-10-24] MEDS: CALCIUM CARBONATE 500 MG TAB.CHEW CHEWED SCH (10:02)
[2022-10-24] MEDS: DOCUSATE SODIUM 100 MG CAPSULE PO SCH (10:02)
--- NOTE | 2022-10-24 11:59 | Discharge Summary ---
Discharge Provider Provider IMPORTANT FOLLOW-UP INFORMATION FOR PCP: Patient information: Note initiated : 10/24/22 at 11:56 am Service Date, if different from initiated Date: [] Patient: Natalee Rooney a 87 y/o F admitted on 10/18/22 for chest pain. Chief Complaint: [] Date of admission: 10/18/22 02:50 Discharge date: 10/24/22 Primary care physician: Deanne Chris Attending physician on admission: Yolanda Parr Consults: 10/18/22 Consult to Physician [CONS] Stat Comment: Consulting Provider: Yolanda Parr Reason For Exam: Physician to Consult Consult to Physician [CONS] Stat Comment: Consulting Provider: Eben Waite Reason For Exam: Physician to Consult Attending physician on discharge: Crow Danielle Pui COURSE Hospital Course Hospital course: Ms. Rooney is a 87 year old F with a past medical history significant for subdural hematoma, chronic atrial fibrillation, congestive heart failure, CKD stage III and recent NSTEMI who presents to the hospital once again complaining of chest pain. The patient was in the ER a few days ago for a fall resulting in a severe head laceration. The patient had a significant bleeding episode in the setting of full anticoagulation as she is on Eliquis. The patient was also complaining of chest pain at that time and she was transferred to [facility] where she had a full work-up however declined aggressive medical management. From my understanding, she did not undergo left heart cath. The patient now presents to the hospital once again with complaints of chest pain. Troponins are unrevealing and EKG did not reveal dynamic ST changes. She was found to be anemic as her hemoglobin dropped from 11.4 recently to 7.9. She was also found to have a creatinine of 4.1. The patient's blood pressure was running on the low side as well as she was found to have blood pressure of 104/58. The hospitalist service was asked admit the patient for further management and evaluation of her acute kidney injury. 10/19: The patient was resting comfortably in bed while eating breakfast. Her son was present at the bedside to discuss plan of care. 10/20: The patient was resting comfortably in bed. Discussed plan of care with case management and social work. 10/21: Concerns about delirium upon dementia yesterday. No focal deficits. Family no longer willing to take her home as they cannot look after her. 10/22: Daughter MONE called and would like to switch patient's resuscitation status from full resuscitation to DNR. Patient developed episode of uncontrolled atrial fibrillation's with heart rate up to 150s beats per minute yesterday evening, metoprolol resumed and Ativan was also made available to her. She was also complaining of chest pain. Serial troponin mildly elevated 0.11, 0.15, 0.19. Patient's heart rate is currently in the 70s beats per minute and patient denies having any more chest pain. H&H 8.7/29.0 this morning. Serum BUN/creatinine 3.3 and 1.9, respectively. Patient is still somewhat agitated and confused. We will continue metoprolol for heart rate control. We will still have Ativan as needed for agitation and anxiety. Pending SNF hospice placement. 10/23: Stable H/H 8.7/29.0-->9.4/32.0. Kidney functions improving, serum Cr 1.9-->1.6. Patient able to carry out a conversation with me but she is only oriented x1 to herself. She stated that she is confused and sleepy and she is still complaining of left-sided headache. We will continue metoprolol for heart rate control. We will still have Ativan as needed for agitation and anxiety. Pending SNF hospice placement. 10/24: Discharged to SN[facility]. Discharge diagnosis: Head laceration, blood loss anemia Time Spent with Patient Time attestation: Total time spent providing and/or coordinating discharge services: Time spent: Less than 30 minutes EXAM Constitutional Vitals: Temp Pulse Resp BP Pulse Ox O2 Del Method O2 Flow Rate 36.9 C 70 20 128/85 96 Room Air 2 10/24/22 08:00 10/24/22 08:00 10/24/22 08:00 10/24/22 08:00 10/24/22 08:00 10/24/22 08:00 10/22/22 04:00 General appearance: no acute distress; no cooperative Head Head exam: Absent atraumatic, normal inspection or normocephalic Additional comments: Head laceration Eye Eye exam: Present EOMI and PERRL ENT ENT exam: Present mucous membranes moist, normal exam and normal external ear exam Neck Neck exam: Present normal inspection; Absent lymphadenopathy, tenderness or thyromegaly Respiratory Respiratory exam: Absent accessory muscle use, respiratory distress or wheezes Cardiovascular Cardiovascular exam: Present irregular rhythm; Absent JVD GI/Abdominal GI/Abdominal exam: Present normal bowel sounds and soft; Absent organomegaly or tenderness Extremities Exam Extremities exam: Present full ROM, normal capillary refill and normal inspection; Absent tenderness Neurological Exam Neurological exam: Present alert, altered and CN II-XII intact; Absent motor sensory deficit or oriented X3 Psychiatric Psychiatric exam: Present normal affect and normal mood; Absent anxious or depressed Skin Skin exam: Present dry and intact Discharge Data Data Completed and Pending Labs on day of discharge: Labs from last 24 hours 10/24/22 10/24/22 05:14 05:14 WBC 8.1 RBC 3.07 L Hgb 9.1 L Hct 29.6 L MCV 96.4 MCH 29.6 MCHC 30.7 L RDW 18.2 H Plt Count 564 H MPV 10.1 Immature Gran % (Auto) 4.4 H Neut % (Auto) 61.9 Lymph % (Auto) 20.5 [place]ie % (Auto) 6.9 Eos % (Auto) 5.4 Baso % (Auto) 0.9 Lymph # (Auto) 1.67 Davie # (Auto) 0.56 Eos # (Auto) 0.44 Baso # (Auto) 0.07 Immature Gran # 0.36 H Absolute Neutrophils 5.03 Sodium 133 Potassium 4.4 Chloride 103 Carbon Dioxide 20 L Anion Gap 10.0 BUN 29 H Creatinine 1.4 H GFR Calculation 33 Glucose 96 Calcium 9.2 Total Bilirubin 0.5 AST 20 ALT 20 Alkaline Phosphatase 118 H Total Protein 5.4 L Albumin 2.9 L Globulin 2.5 Albumin/Globulin Ratio 1.2 Discharge Plan Patient/Caregiver Discharge Instructions Activity: increase activity as tolerated Diet: Regular Diet Prescriptions: Continued losartan 100 mg tablet 100 mg PO QDAY metoprolol succinate 50 mg tablet extended release 24 hr 50 mg PO QDAY Qty: 90 3RF torsemide 10 mg tablet 10 mg PO QDAY Qty: 90 3RF omeprazole 20 MG tablet,delayed release (DR/EC) 20 mg PO DAILY nitroglycerin 0.4 MG tablet, sublingual 0.4 mg SL Q5M PRN (Reason: Chest Pain) Qty: 15 0RF Rx Instructions: MAY REPEAT Q5MIN X3 sulfamethoxazole-trimethoprim [Bactrim DS] 800-160 mg tablet 1 tab PO BID Qty: 10 0RF hydrocodone-acetaminophen 5-325 mg tablet 1 tab PO TID PRN (Reason: pain) Qty: 14 0RF Discontinued apixaban 5 mg tablet 2.5 mg PO BID hydrocodone-acetaminophen 5-325 mg tablet 1 tab PO TID PRN (Reason: pain) Qty: 9 0RF sulfamethoxazole-trimethoprim [Bactrim DS] 800-160 mg tablet 2 tab PO Q12H 7 Days Qty: 28 0RF Follow Up Plan Follow up with: Deanne Chris MD [Primary Care Provider] - Patient Disposition: Xfer SNF Prognosis: Fair Rehab Potential: Good I certify that the patient requires SNF services: Yes Overall status at discharge: patient is progressing back to baseline Discharge Orders: Discharge Order (Routine); Ordered 10/24/22 Ordered By: Crow Garrett
== END 2022-10-24 15:10 | DRG 683 ==
LOC: ED 19:20 → MEDSUR 10-18 02:50
PROVIDERS: ADMIT Student in an Organized Health Care Education/Training Program; ATTEND Student in an Organized Health Care Education/Training Program